=== PATIENT | male | born 1940 | race Caucasian/White ===

== ENCOUNTER → 2016-06-15 | Outpatient (CLI) | payer OTHER, BC ==
[~2016-06-15] MED LIST: B-COTAB18 PO; BYS/5 PO; CLB/200 PO; EFFSR150 PO; FEXO1TAB46 PO; IBUP-1449 PO; LEVO200T6 PO; MULT-506 PO; NXM/40 PO; OMEG10007 PO; OXYC-643 PO; PREG1CAP28 PO; VITAMIN D3 PO; ZOLP5TAB PO
== END | disposition home or self-care (01) ==
LOC: C.RDSM 10:20
PROVIDERS: ATTEND Physical Medicine & Rehabilitation
DX: M54.2 Cervicalgia (principal)

== ENCOUNTER → 2016-07-26 | Outpatient (CLI) | payer OTHER, BC ==
--- NOTE | 2016-07-26 14:02 | DIAGNOSTIC IMAGING REPORT ---
(BARIUM SWALLOW) ESOPHAGUS CLINICAL HISTORY: Pain in back of neck on swallowing. Dysphagia. COMPARISON STUDY: None. FLUOROSCOPY TIME: 1.1 minutes. FINDINGS: No esophageal mass or stricture was identified. A 13 mm barium tablet passed into the stomach. An anterior cervical spine skeletal infusion was noted. No indentation upon the esophagus was noted. No reflux was elicited. There was mild esophageal dysmotility. IMPRESSION: 1. Mild esophageal dysmotility. 2. No esophageal mass or stricture. 3. 13 mm barium tablet passed freely into the stomach. Electronically signed by: Elliot Drew M.D. 07/26/2016 2:00 PM Dictated Date/Time: 07/26/2016 1:59 PM
== END | disposition home or self-care (01) ==
LOC: C.RAD 12:13
PROVIDERS: ATTEND Physical Medicine & Rehabilitation
DX: M43.12 Spondylolisthesis, cervical region (principal); Z98.1 Arthrodesis status; R13.14 Dysphagia, pharyngoesophageal phase

== ENCOUNTER → 2016-07-27 | Outpatient (CLI) | payer OTHER, BC ==
--- NOTE | 2016-08-02 12:59 | CODING QUERY NO DIAGNOSIS ---
TREATMENT RENDERED WITHOUT A DIAGNOSIS Dr. Sheldon, To promote full compliance with coding requirements relating to patient care, physician participation is requested in all cases of maternal fetal physician uncertainty. Please assist us with providing a diagnosis/symptom for the test(s) below: A diagnosis/symptom was not documented on your Order. A valid diagnosis/symptom is required to bill all insurances. Please remember that we are unable to code a diagnosis of rule out, probable, possible, questionable, or suspected. Tests that require a diagnosis: * TISSUE PATH LEVEL IV DIAGNOSIS: DATE OF SERVICE: 07/27/16 Provider Signature: Date: Thank you Freddy Hampton [facility] Information Management Once completed, please kindly fax back to [phone] For questions please call [phone]
== END | disposition home or self-care (01) ==
LOC: C.PATHSPEC 17:15
PROVIDERS: ATTEND Podiatrist Foot & Ankle Surgery
DX: D23.72 Other benign neoplasm of skin of left lower limb, including hip (principal); B07.8 Other viral warts

== ENCOUNTER → 2016-09-01 | Outpatient (CLI) | payer OTHER, BC ==
--- NOTE | 2016-09-02 21:23 | CODING QUERY NO DIAGNOSIS ---
TREATMENT RENDERED WITHOUT A DIAGNOSIS 40 To promote full compliance with coding requirements relating to patient care, physician participation is requested in all cases of staff midwife uncertainty. Please assist us with providing a diagnosis/symptom for the test(s) below: A diagnosis/symptom was not documented on your Order. A valid diagnosis/symptom is required to bill all insurances. Please remember that we are unable to code a diagnosis of rule out, probable, possible, questionable, or suspected. DOS 09/01/16 Tests that require a diagnosis: * AEROBIC GRAM STAIN C&S LEFT FOOT DIAGNOSIS: *ON YOUR ORDER YOU HAVE DX CODE B70.8, THIS IS AN INVALID CODE, CAN YOU PLEASE ADD CORRECT CODE Provider Signature: Date: Thank you Cande Garzon [facility] Information Management Once completed, please kindly fax back to [phone] For questions please call [phone]
== END | disposition home or self-care (01) ==
LOC: C.LABSPEC 16:41
PROVIDERS: ATTEND Podiatrist Foot & Ankle Surgery
DX: L97.509 Non-pressure chronic ulcer of other part of unspecified foot with unspecified severity (principal)

== ENCOUNTER → 2017-02-09 | Outpatient (CLI) | payer OTHER, BC ==
[~2017-02-09] MED LIST changes: -VITAMIN D3 PO
[2017-02-09 08:49] LABS: HEMATOCRIT 46.7 % (42-52); MEAN CELL VOLUME 92.7 fL (80-100); MEAN CORPUSCULAR HEMOGLOBIN 32.1 pg (25-34); MEAN CORPUSCULAR HGB CONC 34.7 g/dl (32-36); MEAN PLATELET VOLUME 10.1 fL (7.4-10.4); PLATELET COUNT 213 K/uL (130-400); RED BLOOD COUNT 5.04 M/uL (4.7-6.1)
[2017-02-09 08:58] LABS: ALT/SGPT 13 U/L (12-78); BLOOD UREA NITROGEN 12 mg/dl (7-18); BUN/CREATININE RATIO 15.4 (10-20); CALCIUM 8.9 mg/dl (8.5-10.1); CARBON DIOXIDE 26 mmol/L (21-32); CHLORIDE 107 mmol/L (98-107); CREATININE 0.79 mg/dl (0.60-1.40); GLUCOSE 106 mg/dl (70-99); POTASSIUM 4.3 mmol/L (3.5-5.1); SODIUM 139 mmol/L (136-145)
[2017-02-09 09:08] LABS: ALKALINE PHOSPHATASE 76 U/L (45-117); AST/SGOT 22 U/L (15-37)
== END | disposition home or self-care (01) ==
LOC: C.LABFOXMH 08:16
PROVIDERS: ATTEND Internal Medicine
DX: R53.83 Other fatigue (principal)

== ENCOUNTER → 2017-04-02 | Outpatient (CLI) | payer OTHER, BC ==
[2017-04-02 09:40] LABS: BLOOD UREA NITROGEN 16 mg/dl (7-18); BUN/CREATININE RATIO 17.9 (10-20); CALCIUM 8.8 mg/dl (8.5-10.1); CARBON DIOXIDE 28 mmol/L (21-32); CHLORIDE 107 mmol/L (98-107); CREATININE 0.89 mg/dl (0.60-1.40); GLUCOSE 107 mg/dl (70-99); POTASSIUM 4.4 mmol/L (3.5-5.1); SODIUM 140 mmol/L (136-145)
== END ==
LOC: C.LABFOXMH 09:00
PROVIDERS: ATTEND Internal Medicine
DX: R53.83 Other fatigue (principal)

== ENCOUNTER → 2017-05-31 | Outpatient (CLI) | payer OTHER, BC ==
[~2017-05-31] MED LIST changes: +GADAVIST IV PRN
--- NOTE | 2017-05-31 13:12 | DIAGNOSTIC IMAGING REPORT ---
L LOWER EXT NONJOINT COMBO CLINICAL HISTORY: 76 years-old Male presenting with EVAL INTERSPACE FOR POSSIBLE NEUROMA MTPJ L2,3,4, pain at the bases of the toes. TECHNIQUE: Multisequence, multiplanar MR imaging of the forefoot was performed before and after the administration of intravenous contrast. IV contrast: 8 mL of Gadavist. COMPARISON: None. FINDINGS: Localizer images: Unremarkable. A marker is in place over the dorsal aspect of the second through fourth metatarsophalangeal joints. No subjacent abnormality. No soft tissue mass. No subcutaneous or intramuscular edema. No bony edema. Trace fluid noted in the second through fourth metatarsophalangeal joints. Mild degenerative changes at the first metatarsophalangeal joint. IMPRESSION: No evidence of a mass. Reactive fluid in the second through the fourth metatarsophalangeal joints. This is most likely degenerative in etiology. No abnormal enhancement. Electronically signed by: Dru Orozco M.D. 05/31/2017 1:10 PM Dictated Date/Time: 05/31/2017 12:09 PM
== END | disposition home or self-care (01) ==
LOC: C.MRI 09:31
PROVIDERS: ATTEND Podiatrist Foot & Ankle Surgery
DX: Q66.52 Congenital pes planus, left foot (principal); Q66.51 Congenital pes planus, right foot

== ENCOUNTER 2022-08-28 13:17 | Observation (INO) ==
--- NOTE | 2022-08-28 14:41 | XRay Report ---
XR chest 1V not portable HISTORY: 82 years-old Male Chest pain, nonspecific acute hypoxia with weakness COMPARISON: 07/28/2019 TECHNIQUE: PA view of the chest FINDINGS: Cardiac mediastinal and hilar silhouettes are unchanged. Chronic appearing left-sided rib fractures. Spondylitic spurring of the spine. Cervical spinal fusion hardware. No pneumothorax, pleural effusion , airspace consolidation or pulmonary edema. IMPRESSION: No acute process of the chest. ACT 112: Negative or not required by law. The above report was generated using voice recognition software. It may contain grammatical, syntax o r spelling errors. Electronically signed by: León Osorio M.D. 08/28/2022 2:40 PM
[2022-08-28] MEDS ORDERED: SODIUM CHLORIDE 0.9% 1000ML 1,000 ML IV ONE (15:36)
--- NOTE | 2022-08-28 15:43 | Emergency Department Note ---
Impression & Plan Hypoxic, Weakness, COVID ED Provider Note NAME: ADEN HILL JR AGE: 82 SEX: M : 1940 ARRIVES VIA: Ambulance INFORMANT: Patient ED PROVIDER(S): Lefty Oliva DO CHIEF COMPLAINT: Weakness HPI: Patient is an 82-year-old male who presents from [facility] notes that he has been weak over the past 24 hours. He notes he does have a mild cough. No headache or change in vision. No chest pain or shortness of breath. No belly pain, nausea, vomiting or diarrhea. No dysuria, urgency or frequency. He notes that this morning when he tried to get up from a chair he felt dizzy. This lasted for about 30 minutes and then resolved. He has not had anything since then. He denies all other complaints at this time. Again no focal weakness or numbness. PAST MEDICAL HISTORY:See Below PAST SURGICAL HISTORY:See Below FAMILY HISTORY:See Below SOCIAL HISTORY:See Below HOME MEDICATIONS:See Below ALLERGIES:See Below VITALS:See Below PHYSICAL EXAMINATION: GENERAL: Sitting up in bed, alert, well appearing, well nourished, no distress, non-toxic EYE EXAM: normal conjunctiva. PERRL and EOM'sintact. OROPHARYNX: no exudate, no erythema, lips, buccal mucosa, and tongue normal and mucous membranes are moist NECK: supple, no nuchal rigidity, no adenopathy, non-tender LUNGS: Clear to auscultation. Normal chest wall mechanics HEART: no murmurs, S1 normal and S2 normal ABDOMEN: abdomen soft, non-tender, normo-active bowel sounds, no masses, no rebound or guarding. UPPER EXTREMITIES: upper extremities are grossly normal. LOWER EXTREMITIES: No pitting edema. NEURO EXAM: Normal sensorium, cranial nerves II-XII intact, normal speech, no weakness of arms, no weakness of legs. No drift. Finger to nose intact. Gross sensation intact. MEDICAL DECISION MAKING: Patient is a 82-year-old male who presents ER for above-stated complaint. IV was established blood work was obtained. Labs show no significant leukocytosis or anemia. INR was unremarkable. BMP along LFTs bilirubin and TSH was unremarkable. Troponin was negative. UA was clean. Patient was positive for COVID. He was in A-fib upon presentation and was given a small dose of Lopressor. Upon review of his history there was mention of this in previous notes but patient noted that he was unaware at that time. Currently he does remember having a history of A-fib at some point. CT of the head was negative. Chest x-ray was unremarkable. Patient was slightly hypoxic at 80%. Was placed on 2 L nasal cannula. He was given Decadron. He was updated bedside discussed with the hospitalist for further evaluation management and treatment. Discussed with Dr. Jay for further evaluation management Triage Nursing notes reviewed. Limited review of prior medical records performed Vital Signs: reviewed and remarkable for no significant abnormalities Differential diagnosis: Differential diagnosis includes etiologies such as benign positional vertigo, dehydration, hypovolemia, anemia, tumor, infection, hypoglycemia, electrolyte abnormalities, cardiac sources, intracerebral event, toxicologic, neurological, as well as others were entertained. ER treatment provided: See below Diagnostics interpreted by me include EKG and cardiac monitoring as listed below: -Cardiac Monitoring: An order was placed for continuous cardiac monitoring. The monitor shows a rate of 80 with sinus rhythm. -ECG: A-fib rate of 94 Normal axis No PVCs QTc 455 -Laboratory studies:Interpreted by me as stated above in MDM and shown below. Imaging studies: Xrays: As interpreted by me: Portable AP upright 1 view of the chest shows no focal infiltrate CTs show: CT head was negative Consultation(s): As described in MDM Procedures:none Critical Care: I have personally spent 32 minutes of critical care time in the direct management of this patient. This includes bedside care, interpretation of diagnostic studies, and testing, discussion with consultants, patient, and family members, and other required patient management activities. This 32 minutes is in excess of all separately billable procedures. Past Med/Surg History Medical History (Updated 08/28/22 @ 20:41 by Lefty Oliva DO) Depression GERD (gastroesophageal reflux disease) CONTROLLED Hearing deficit HEARING AIDS History of alcoholism History of cervical fracture C5-C6 CERVICAL FRACTURE 2014 TREATED CONSERVATIVELY Hx of urinary frequency Hypertension Hypothyroidism Hypothyroidism Mixed conductive and sensorineural hearing loss of right ear with restricted hearing of left ear Prostate cancer PROSTATE S/P PROSTATECTOMY; NO CHEMO OR RADIATION Surgical History History of colonoscopy History of esophagogastroduodenoscopy (EGD) 01/14/16= MAC SEDATION AT [facility] History of hernia repair History of spinal fusion cervical Hx of arthroscopic knee surgery ? left Hx of prostatectomy Hx of shoulder surgery right Social History Smoking Status: Never smoker Tobacco Type: Pipe and Cigars Cigarettes Per Day: 3; Do You Dip or Chew Tobacco: No; Hx Alcohol Use: No (HX ETOH ABUSE; NO ETOH X 10+ YEARS) Hx Substance Use: No Preferred Language: Rwandan Communication Ability: Effective Beliefs That Will Affect Care: None marital status: Single Current Living Situation: Personal Care Facility current occupational status: retired Feels Safe at Home: Yes Assistive Devices: Glasses, Hearing Aid - Left and Hearing Aid - Right Allergies Allergies Allergy/AdvReac Type Severity Reaction Status Date / Time Penicillins Allergy Severe SEVERE Verified 08/28/22 17:45 SWELLING AND HIVES Sulfa (Sulfonamide Allergy Severe SEVERE Verified 08/28/22 17:45 Antibiotics) SWELLING AND HIVES Home Meds Home Medications Medication Instructions Recorded Confirmed cholecalciferol (vitamin D3) 50 2,000 unit PO DAILY 04/12/18 08/28/22 mcg (2,000 unit) tablet (Vitamin D3) esomeprazole magnesium 40 mg 40 mg PO Q2D 04/12/18 08/28/22 capsule,delayed release (Nexium) fexofenadine 180 mg tablet 180 mg PO DAILY PRN allergies 04/12/18 08/28/22 levothyroxine 200 mcg tablet 200 mcg PO DAILY 04/12/18 08/28/22 (Synthroid) triamcinolone acetonide 0.1 % 1 applic topical DAILY PRN 04/12/18 08/28/22 topical cream affected areas vitamin B complex 1 tab PO DAILY 04/12/18 08/28/22 metoprolol succinate 25 mg 25 mg PO DAILY 01/17/21 08/28/22 tablet,extended release 24 hr (Toprol XL) atorvastatin 40 mg tablet 40 mg PO QAM 08/28/22 08/28/22 clobetasol 0.05 % topical cream 1 applic topical BID PRN ITCHINESS 08/28/22 08/28/22 cyanocobalamin (vitamin B-12) 1,000 mcg PO DAILY 08/28/22 08/28/22 1,000 mcg tablet (Vitamin B-12) doxepin 10 mg capsule 10 mg PO HS 08/28/22 08/28/22 duloxetine 60 mg capsule,delayed 60 mg PO QPM 08/28/22 08/28/22 release (Cymbalta) gabapentin 600 mg tablet 600 mg PO HS 08/28/22 08/28/22 oxycodone-acetaminophen 10 mg-325 1 tab PO TID PRN Pain 08/28/22 08/28/22 mg tablet vilazodone 20 mg tablet 20 mg PO DAILY 08/28/22 08/28/22 zolpidem 5 mg tablet (Ambien) 5 - 10 mg PO HS PRN Insomnia 08/28/22 08/28/22 Results & Data (ED) Vital Signs Vital Signs - 24 hr 08/28/22 13:07 08/28/22 15:45 08/28/22 15:45 Temperature 36.6 C Temperature Source Temporal Artery Scan Pulse Rate 78 Pulse Rate [Apical] Pulse Rate from SpO2 Sensor Respiratory Rate 18 Blood Pressure 116/76 Blood Pressure [Left Arm] Blood Pressure Mean 89 Blood Pressure Mean [Left Arm] Pulse Oximetry 92 97 Oxygen Delivery Method Room Air Oxygen Flow Rate Sepsis Recent Fever Within 48 Hours Yes Sepsis New/Unexplained Change in Mental Status No Sepsis Action Taken by Nursing No Action Required 08/28/22 15:30 08/28/22 15:30 08/28/22 16:00 Temperature Temperature Source Pulse Rate 92 H 104 H Pulse Rate [Apical] Pulse Rate from SpO2 Sensor 108 H Respiratory Rate 29 H 24 Blood Pressure 132/94 Blood Pressure [Left Arm] Blood Pressure Mean 106 Blood Pressure Mean [Left Arm] Pulse Oximetry 92 92 Oxygen Delivery Method Oxygen Flow Rate Sepsis Recent Fever Within 48 Hours Sepsis New/Unexplained Change in Mental Status Sepsis Action Taken by Nursing 08/28/22 16:32 08/28/22 16:35 08/28/22 16:35 Temperature Temperature Source Pulse Rate 108 H 103 H Pulse Rate [Apical] Pulse Rate from SpO2 Sensor 95 H Respiratory Rate 29 H 25 H Blood Pressure 181/111 H Blood Pressure [Left Arm] Blood Pressure Mean 134 Blood Pressure Mean [Left Arm] Pulse Oximetry 93 Oxygen Delivery Method Oxygen Flow Rate Sepsis Recent Fever Within 48 Hours Sepsis New/Unexplained Change in Mental Status Sepsis Action Taken by Nursing 08/28/22 17:14 08/28/22 17:30 08/28/22 18:00 Temperature Temperature Source Pulse Rate 109 H Pulse Rate [Apical] 98 H Pulse Rate from SpO2 Sensor 101 H 116 H Respiratory Rate 21 18 Blood Pressure Blood Pressure [Left Arm] 158/102 H Blood Pressure Mean Blood Pressure Mean [Left Arm] 120 Pulse Oximetry 92 89 L 92 Oxygen Delivery Method Room Air Oxygen Flow Rate Sepsis Recent Fever Within 48 Hours Sepsis New/Unexplained Change in Mental Status Sepsis Action Taken by Nursing 08/28/22 19:18 08/28/22 19:33 Temperature Temperature Source Pulse Rate 88 Pulse Rate [Apical] 83 Pulse Rate from SpO2 Sensor Respiratory Rate 24 Blood Pressure Blood Pressure [Left Arm] 161/94 H Blood Pressure Mean Blood Pressure Mean [Left Arm] 116 Pulse Oximetry 96 Oxygen Delivery Method Nasal Cannula Oxygen Flow Rate 2 Sepsis Recent Fever Within 48 Hours Sepsis New/Unexplained Change in Mental Status Sepsis Action Taken by Nursing Laboratory Data 08/28/22 15:41 08/28/22 15:41 Lab Results 08/28/22 08/28/22 08/28/22 Range/Units 15:41 15:41 15:41 WBC 5.70 (4.8-10.8) K/ul RBC 4.92 (4.70-6.10) M/uL Hgb 15.5 (14.0-18.0) g/dl Hct 46.3 (42.0-52.0) % MCV 94.1 (80.0-100.0) fL MCH 31.5 (25.0-34.0) pg MCHC 33.5 (32.0-36.0) g/dL RDW Std Deviation 42.9 (36.4-46.3) fL RDW Coeff of Edward 12.3 (11.5-14.5) % Plt Count 185 (130-400) K/uL MPV 9.7 (9.4-12.4) fL Immature Gran % (Auto) 0.2 % Neut % (Auto) 60.1 % Lymph % (Auto) 14.4 % [place] % (Auto) 24.4 % Eos % (Auto) 0.4 % Baso % (Auto) 0.5 % Neut # (Auto) 3.43 (1.40-6.50) K/uL Lymph # (Auto) 0.82 L (1.2-3.4) K/uL [place] # (Auto) 1.39 H (0.11-0.59) K/uL Eos # (Auto) 0.02 (0-0.50) K/uL Baso # (Auto) 0.03 (0-0.2) K/uL Immature Gran # (Auto) 0.01 (0.01-0.20) K/uL PT 12.3 H (9.0-12.0) Seconds INR 1.1 (0.9-1.1) APTT 30.1 (21.0-31.0) Seconds PTT Ratio 1.1 Sodium 137 (136-145) mmol/L Potassium 4.0 (3.5-5.1) mmol/L Chloride 103 (98-107) mmol/L Carbon Dioxide 29 (21-32) mmol/L Anion Gap 5 (3-11) BUN 17 (6-23) mg/dl Creatinine 0.90 (0.6-1.4) mg/dl Est Cr Clr Drug Dosing 67.4 ml/min Est GFR ( Amer) 91.9 ml/min Est GFR (Non-Af Amer) 79.3 ml/min BUN/Creatinine Ratio 18.9 (10-20) Glucose 108 H (70-99(Fasting)) mg/dl Calcium 9.0 (8.6-10.3) mg/dl Magnesium 2.2 (1.7-2.4) mg/dl Total Bilirubin 0.5 (0.2-1.0) mg/dl AST 19 (13-39) U/L ALT 8 (7-52) U/L Alkaline Phosphatase 81 (34-104) U/L Troponin I High Sens 7.2 (0-20) pg/ml Total Protein 7.3 (6.0-8.3) gm/dl Albumin 4.2 (3.4-5.0) gm/dl Globulin 3.1 (2.5-4.0) gm/dl Albumin/Globulin Ratio 1.4 (0.9-2) Procalcitonin (0-0.5) ng/ml TSH (0.300-4.500) uIu/ml Urine Color Urine Appearance (Clear) Urine pH (4.5-7.5) Ur Specific [place] (1.000-1.030) Urine Protein (Negative) Urine Glucose (UA) (Negative) Urine Ketones (Negative) Urine Blood (Negative) Urine Nitrite (Negative) Urine Bilirubin (Negative) Urine Urobilinogen (Negative) Ur Leukocyte Esterase (Negative) Adenovirus (PCR) (NotDetected) B. pertussis DNA (PCR) (NotDetected) B.parapertussis DNA PCR (NotDetected) C. pneumoniae DNA (PCR) (NotDetected) Coronavirus OC43 (PCR) (NotDetected) Coronavirus HKU1 (PCR) (NotDetected) Coronavirus 229E (PCR) (NotDetected) SARS-CoV-2 (PCR) (Negative) Coronavirus NL63 (PCR) (NotDetected) Human Metapneumovir PCR (NotDetected) Influenza Type A (PCR) (Neg) Influenza Type B (PCR) (Neg) M. pneumoniae (PCR) (NotDetected) Parainfluenza 1 (PCR) (NotDetected) Parainfluenza 2 (PCR) (NotDetected) Parainfluenza 3 (PCR) (NotDetected) Parainfluenza 4 (PCR) (NotDetected) RSV (RT-PCR) (Neg) RSV (PCR) (NotDetected) Entero/Rhino (PCR) (NotDetected) 08/28/22 08/28/22 08/28/22 Range/Units 15:41 15:41 15:41 WBC (4.8-10.8) K/ul RBC (4.70-6.10) M/uL Hgb (14.0-18.0) g/dl Hct (42.0-52.0) % MCV (80.0-100.0) fL MCH (25.0-34.0) pg MCHC (32.0-36.0) g/dL RDW Std Deviation (36.4-46.3) fL RDW Coeff of Edward (11.5-14.5) % Plt Count (130-400) K/uL MPV (9.4-12.4) fL Immature Gran % (Auto) % Neut % (Auto) % Lymph % (Auto) % [place] % (Auto) % Eos % (Auto) % Baso % (Auto) % Neut # (Auto) (1.40-6.50) K/uL Lymph # (Auto) (1.2-3.4) K/uL [place] # (Auto) (0.11-0.59) K/uL Eos # (Auto) (0-0.50) K/uL Baso # (Auto) (0-0.2) K/uL Immature Gran # (Auto) (0.01-0.20) K/uL PT (9.0-12.0) Seconds INR (0.9-1.1) APTT (21.0-31.0) Seconds PTT Ratio Sodium (136-145) mmol/L Potassium (3.5-5.1) mmol/L Chloride (98-107) mmol/L Carbon Dioxide (21-32) mmol/L Anion Gap (3-11) BUN (6-23) mg/dl Creatinine (0.6-1.4) mg/dl Est Cr Clr Drug Dosing ml/min Est GFR ( Amer) ml/min Est GFR (Non-Af Amer) ml/min BUN/Creatinine Ratio (10-20) Glucose (70-99(Fasting)) mg/dl Calcium (8.6-10.3) mg/dl Magnesium (1.7-2.4) mg/dl Total Bilirubin (0.2-1.0) mg/dl AST (13-39) U/L ALT (7-52) U/L Alkaline Phosphatase (34-104) U/L Troponin I High Sens (0-20) pg/ml Total Protein (6.0-8.3) gm/dl Albumin (3.4-5.0) gm/dl Globulin (2.5-4.0) gm/dl Albumin/Globulin Ratio (0.9-2) Procalcitonin < 0.05 (0-0.5) ng/ml TSH 0.271 L (0.300-4.500) uIu/ml Urine Color Urine Appearance (Clear) Urine pH (4.5-7.5) Ur Specific [place] (1.000-1.030) Urine Protein (Negative) Urine Glucose (UA) (Negative) Urine Ketones (Negative) Urine Blood (Negative) Urine Nitrite (Negative) Urine Bilirubin (Negative) Urine Urobilinogen (Negative) Ur Leukocyte Esterase (Negative) Adenovirus (PCR) (NotDetected) B. pertussis DNA (PCR) (NotDetected) B.parapertussis DNA PCR (NotDetected) C. pneumoniae DNA (PCR) (NotDetected) Coronavirus OC43 (PCR) (NotDetected) Coronavirus HKU1 (PCR) (NotDetected) Coronavirus 229E (PCR) (NotDetected) SARS-CoV-2 (PCR) POSITIVE A* (Negative) Coronavirus NL63 (PCR) (NotDetected) Human Metapneumovir PCR (NotDetected) Influenza Type A (PCR) Negative (Neg) Influenza Type B (PCR) Negative (Neg) M. pneumoniae (PCR) (NotDetected) Parainfluenza 1 (PCR) (NotDetected) Parainfluenza 2 (PCR) (NotDetected) Parainfluenza 3 (PCR) (NotDetected) Parainfluenza 4 (PCR) (NotDetected) RSV (RT-PCR) Negative (Neg) RSV (PCR) (NotDetected) Entero/Rhino (PCR) (NotDetected) 08/28/22 08/28/22 Range/Units 15:50 16:30 WBC (4.8-10.8) K/ul RBC (4.70-6.10) M/uL Hgb (14.0-18.0) g/dl Hct (42.0-52.0) % MCV (80.0-100.0) fL MCH (25.0-34.0) pg MCHC (32.0-36.0) g/dL RDW Std Deviation (36.4-46.3) fL RDW Coeff of Edward (11.5-14.5) % Plt Count (130-400) K/uL MPV (9.4-12.4) fL Immature Gran % (Auto) % Neut % (Auto) % Lymph % (Auto) % [place] % (Auto) % Eos % (Auto) % Baso % (Auto) % Neut # (Auto) (1.40-6.50) K/uL Lymph # (Auto) (1.2-3.4) K/uL [place] # (Auto) (0.11-0.59) K/uL Eos # (Auto) (0-0.50) K/uL Baso # (Auto) (0-0.2) K/uL Immature Gran # (Auto) (0.01-0.20) K/uL PT (9.0-12.0) Seconds INR (0.9-1.1) APTT (21.0-31.0) Seconds PTT Ratio Sodium (136-145) mmol/L Potassium (3.5-5.1) mmol/L Chloride (98-107) mmol/L Carbon Dioxide (21-32) mmol/L Anion Gap (3-11) BUN (6-23) mg/dl Creatinine (0.6-1.4) mg/dl Est Cr Clr Drug Dosing ml/min Est GFR ( Amer) ml/min Est GFR (Non-Af Amer) ml/min BUN/Creatinine Ratio (10-20) Glucose (70-99(Fasting)) mg/dl Calcium (8.6-10.3) mg/dl Magnesium (1.7-2.4) mg/dl Total Bilirubin (0.2-1.0) mg/dl AST (13-39) U/L ALT (7-52) U/L Alkaline Phosphatase (34-104) U/L Troponin I High Sens (0-20) pg/ml Total Protein (6.0-8.3) gm/dl Albumin (3.4-5.0) gm/dl Globulin (2.5-4.0) gm/dl Albumin/Globulin Ratio (0.9-2) Procalcitonin (0-0.5) ng/ml TSH (0.300-4.500) uIu/ml Urine Color Yellow Urine Appearance Clear (Clear) Urine pH 5.5 (4.5-7.5) Ur Specific [place] 1.015 (1.000-1.030) Urine Protein Negative (Negative) Urine Glucose (UA) Negative (Negative) Urine Ketones Negative (Negative) Urine Blood Negative (Negative) Urine Nitrite Negative (Negative) Urine Bilirubin Negative (Negative) Urine Urobilinogen Negative (Negative) Ur Leukocyte Esterase Negative (Negative) Adenovirus (PCR) Not Detected (NotDetected) B. pertussis DNA (PCR) Not Detected (NotDetected) B.parapertussis DNA PCR Not Detected (NotDetected) C. pneumoniae DNA (PCR) Not Detected (NotDetected) Coronavirus OC43 (PCR) Not Detected (NotDetected) Coronavirus HKU1 (PCR) Not Detected (NotDetected) Coronavirus 229E (PCR) Not Detected (NotDetected) SARS-CoV-2 (PCR) DETECTED A* (Negative) Coronavirus NL63 (PCR) Not Detected (NotDetected) Human Metapneumovir PCR Not Detected (NotDetected) Influenza Type A (PCR) Not Detected (Neg) Influenza Type B (PCR) Not Detected (Neg) M. pneumoniae (PCR) Not Detected (NotDetected) Parainfluenza 1 (PCR) Not Detected (NotDetected) Parainfluenza 2 (PCR) Not Detected (NotDetected) Parainfluenza 3 (PCR) Not Detected (NotDetected) Parainfluenza 4 (PCR) Not Detected (NotDetected) RSV (RT-PCR) (Neg) RSV (PCR) Not Detected (NotDetected) Entero/Rhino (PCR) Not Detected (NotDetected) Administered Medications Discontinued Medications Albuterol (Albuterol 0.083% Nebu Soln 3 Ml Vial) 2.5 mg NEB NOW STA; Protocol Stop: 08/28/22 19:25 Last Admin: 08/28/22 19:59 Dose: 2.5 mg Documented By: MCKINLEY Sodium Chloride (Nss 1000ml) 1,000 mls @ 999 mls/hr IV .[id number] ONE Stop: 08/28/22 16:36 Last Infusion: 08/28/22 17:40 Dose: 0 mls/hr Documented By: Admin: 08/28/22 16:00 Dose: 999 mls/hr Documented By: TOM Dexamethasone 6 mg/ Syringe 1.5 mls @ 1 mls/min IV ONE ONE Stop: 08/28/22 18:47 Last Admin: 08/28/22 19:54 Dose: 1 mls/min Documented By: MCKINLEY Acetaminophen (Ofirmev) 1,000 mg in 100 mls @ 400 mls/hr IV NOW STA Stop: 08/28/22 19:09 Last Infusion: 08/28/22 20:30 Dose: 0 mls/hr Documented By: Admin: 08/28/22 20:05 Dose: 400 mls/hr Documented By: MCKINLEY Ibuprofen (Ibuprofen 600 Mg Tab) 600 mg PO NOW STA Stop: 08/28/22 19:25 Last Admin: 08/28/22 20:02 Dose: 600 mg Documented By: LEONELAF Metoprolol Tartrate (Metoprolol Tartrate 1 Mg/Ml Vial) 2.5 mg IV NOW STA Stop: 08/28/22 17:19 Last Admin: 08/28/22 17:41 Dose: 2.5 mg Documented By: QGV Imaging Data Radiologist's Impression: Chest X-Ray 08/28/22 13:56 XR chest 1V not portable HISTORY: 82 years-old Male Chest pain, nonspecific acute hypoxia with weakness COMPARISON: 07/28/2019 TECHNIQUE: PA view of the chest FINDINGS: Cardiac mediastinal and hilar silhouettes are unchanged. Chronic appearing left- sided rib fractures. Spondylitic spurring of the spine. Cervical spinal fusion hardware. No pneumothorax, pleural effusion, airspace consolidation or pulmonary edema. IMPRESSION: No acute process of the chest. ACT 112: Negative or not required by law. The above report was generated using voice recognition software. It may contain grammatical, syntax or spelling errors. Electronically signed by: León Osorio M.D. 08/28/2022 2:[address] 08/28/22 15:36 CT head/brain wo con CLINICAL HISTORY: 82 years-old Male with dizzy. Acute dizziness TECHNIQUE: Multiple axial CT images of the head were obtained without contrast. A dose lowering technique was utilized adhering to the principles of ALARA. CT DOSE: 625.80 mGy.cm COMPARISON: 07/24/2013 FINDINGS: No acute intracranial hemorrhage, midline shift, intracranial mass, hydrocephalus, territorial ischemia or abnormal extra-axial collection. Involutional changes with chronic microvascular ischemic disease. Chronic lacunar infarct of the right frontal lobe choudhary radiata and lentiform nucleus. Cerebral vascular calcifications. Chronic-appearing cerebellar infarcts. The calvarium is intact. The paranasal sinuses, mastoid air cells, and middle ear cavities are clear. IMPRESSION: No acute intracranial abnormality identified. ACT 112: Negative or not required by law. The above report was generated using voice recognition software. It may contain grammatical, syntax or spelling errors. Electronically signed by: León Osorio M.D. 08/28/2022 4:01 PM Discharge Plan Visit Data Chief Complaint: Weakness Stated Complaint: WEAKNESS, COVID + ED Provider: Lefty Oliva Discharge Problem: Hypoxic, Weakness, COVID Forms Stand Alone Forms: My [facility] Prescriptions Prescriptions: No Action metoprolol succinate [Toprol XL] 25 mg tablet extended release 24 hr 25 mg PO DAILY fexofenadine 180 mg Tablet 180 mg PO DAILY PRN (Reason: allergies) triamcinolone acetonide 0.1 % Cream 1 applic TOPICAL DAILY PRN (Reason: affected areas) esomeprazole magnesium [Nexium] 40 mg Capsule,Delayed Release(Dr/Ec) 40 mg PO Q2D vitamin B complex Tablet 1 tab PO DAILY levothyroxine [Synthroid] 200 mcg Tablet 200 mcg PO DAILY cholecalciferol (vitamin D3) [Vitamin D3] 2,000 unit Tablet 2,000 unit PO DAILY atorvastatin 40 mg tablet 40 mg PO QAM gabapentin 600 mg tablet 600 mg PO HS clobetasol 0.05 % Cream 1 applic TOPICAL BID PRN (Reason: ITCHINESS) cyanocobalamin (vitamin B-12) [Vitamin B-12] 1,000 mcg Tablet 1,000 mcg PO DAILY doxepin 10 mg Capsule 10 mg PO HS oxycodone-acetaminophen 10-325 mg tablet 1 tab PO TID PRN (Reason: Pain) zolpidem [Ambien] 5 mg Tablet 5 - 10 mg PO HS PRN (Reason: Insomnia) duloxetine [Cymbalta] 60 mg Capsule,Delayed Release(Dr/Ec) 60 mg PO QPM Rx Instructions: Q AFTERNOON vilazodone 20 mg Tablet 20 mg PO DAILY Rx Instructions: must administer with a meal/food Referrals Referrals: Magaly Nicole [Primary Care Provider] -
--- NOTE | 2022-08-28 16:03 | CT Scan Report ---
CT head/brain wo con CLINICAL HISTORY: 82 years-old Male with dizzy. Acute dizziness TECHNIQUE: Multiple axial CT images of the head were obtained without contrast. A dose lowering tech nique was utilized adhering to the principles of ALARA. CT DOSE: 625.80 mGy.cm COMPARISON: 07/24/2013 FINDINGS: No acute intracranial hemorrhage, midline shift, intracranial mass, hydrocephalus, territorial ischem ia or abnormal extra-axial collection. Involutional changes with chronic microvascular ischemic disea se. Chronic lacunar infarct of the right frontal lobe choudhary radiata and lentiform nucleus. Cerebral vascular calcifications. Chronic-appearing cerebellar infarcts. The calvarium is intact. The paranasal sinuses, mastoid air cells, and middle ear cavities are clear . IMPRESSION: No acute intracranial abnormality identified. ACT 112: Negative or not required by law. The above report was generated using voice recognition software. It may contain grammatical, syntax o r spelling errors. Electronically signed by: León Osorio M.D. 08/28/2022 4:01 PM
[2022-08-28 16:21] LABS: Basophils # (auto) 0.03 K/uL (0-0.2); Basophils % (auto) 0.5 %; Eosinophils # (auto) 0.02 K/uL (0-0.50); Eosinophils % (auto) 0.4 %; Hematocrit (blood only) 46.3 % (42.0-52.0); Hemoglobin 15.5 g/dl (14.0-18.0); Immature Granulocytes # (auto) 0.01 K/uL (0.01-0.20); Immature Granulocytes % (auto) 0.2 %; Lymphocytes # (auto) 0.82 K/uL (1.2-3.4); Lymphocytes % (auto) 14.4 %; Mean Corpuscular Hemoglobin 31.5 pg (25.0-34.0); Mean Corpuscular Hgb Conc 33.5 g/dL (32.0-36.0); Mean Corpuscular Volume 94.1 fL (80.0-100.0); Mean Platelet Volume 9.7 fL (9.4-12.4); Monocytes # (auto) 1.39 K/uL (0.11-0.59); Monocytes % (auto) 24.4 %; Neutrophils # (auto) 3.43 K/uL (1.40-6.50); Neutrophils % (auto) 60.1 %; Platelet Count 185 K/uL (130-400); RDW Coefficient of Variation 12.3 % (11.5-14.5); RDW Standard Deviation 42.9 fL (36.4-46.3); Red Blood Count 4.92 M/uL (4.70-6.10)
[2022-08-28 16:32] LABS: Albumin Globulin Ratio 1.4 (0.9-2); Albumin Level 4.2 gm/dl (3.4-5.0); BUN Creatinine Ratio 18.9 (10-20); Bilirubin,Total 0.5 mg/dl (0.2-1.0); Creatinine Clr Calc Pharmacy 67.4 ml/min; Est GFR (African American) 91.9 ml/min; Est GFR (Non-African American) 79.3 ml/min; Globulin 3.1 gm/dl (2.5-4.0); Total Protein 7.3 gm/dl (6.0-8.3)
[2022-08-28 16:38] LABS: Troponin I High Sensitivity 7.2 pg/ml (0-20)
[2022-08-28 16:41] LABS: Influenza A virus by PCR Negative (Neg); Influenza B virus by PCR Negative (Neg); RSV by PCR Negative (Neg)
[2022-08-28 16:47] LABS: Appearance Urine Clear (Clear); Bilirubin Urine Negative (Negative); Blood Urine Negative (Negative); Color Urine Yellow; Glucose Urine UA Negative (Negative); Ketones Urine Negative (Negative); Leukocyte Esterase Urine Negative (Negative); Nitrite Urine Negative (Negative); Protein Urine Negative (Negative); Specific Gravity Urine 1.015 (1.000-1.030); Urobilinogen Urine Negative (Negative); pH Urine 5.5 (4.5-7.5)
[2022-08-28 16:48] LABS: SARS CoV2 RNA(COVID-19) Ceph POSITIVE (Negative)
[2022-08-28 16:53] LABS: INR 1.1 (0.9-1.1); Partial Thromboplastin Ratio 1.1; Partial Thromboplastin Time 30.1 Seconds (21.0-31.0); Prothrombin Time 12.3 Seconds (9.0-12.0)
--- NOTE | 2022-08-28 17:14 | Electrocardiogram Report ---
Test Reason : Blood Pressure : / mmHG Vent. Rate : 094 BPM Atrial Rate : 000 BPM P-R Int : 000 ms QRS Dur : 090 ms QT Int : 364 ms P-R-T Axes : 000 023 056 degrees QTc Int : 455 ms Atrial fibrillation Abnormal ECG When compared with ECG of 28-JUL-2019 19:05, Atrial fibrillation has replaced Sinus rhythm Confirmed by Sathya Che ([id number]) on 08/28/2022 5:13:58 PM Referred By: REFERRED SELF Confirmed By:Jaya Che
[2022-08-28] MEDS ORDERED: METOPROLOL TARTRATE 1 MG/ML VIAL IV STA (17:18)
[2022-08-28] MEDS ORDERED: dexAMETHasone 6 MG in SYRINGE 0 ML IV ONE (18:46)
[2022-08-28] MEDS ORDERED: ACETAMINOPHEN 1,000 MG/100 ML VIAL IV STA (18:55)
--- NOTE | 2022-08-28 18:58 | History & Physical Report ---
Date of Service August 28, 2022 Assessment & Plan (1) COVID: Plan: Patient presents with generalized malaise and fatigue and found to be COVID positive- onset of symptoms <24 hours, however reports first positive test ~ 1week ago - complicated by decrease oral and PO intake - Noted wheezing will test for other respirtory viral agents as well as send PCT - CXR with no acute process or consolidation - Not candidate for any further COVID therapy at this time - Hold on decadron as not on any oxygen at this time- MARILYN nebulizers for wheezing - IVF for gentle hydration x 1 liter - Rigors and fevers- Tylenol and Motrin PRN- first doses now - Lovenox for VTE prophylaxis (2) Malaise and fatigue: Plan: Acute onset with no focal deficits - as above- supportive care - PT/OT evaluation (3) Atrial dysrhythmia: Plan: History of PAF- ECG irregularly irregular in [facility]- but difficult to ascertain secondary to his rigors- back to NSR in the 80s following antipyretics prior to rooming. - Continue with Metoprolol- will add PRN IV dosing if HR uncontrolled - Rate currently controlled- likely to improve rate control with controlling rigors - Keep MAG ~2.0 and K 4.0 - Check TSH - Follow rhythms overnight- [id number] - 3 consider anticoagulation vs. remaining on aspirin if remains in afib and following shared decision making - HASbled- 3 - 5.8 % risk considered high risk- as above continue asa. (4) Hypertension: Plan: Continue Metoprolol No acute needs at this time (5) Hypothyroidism: Plan: TSH as above- patient unsure of dose - interventions pending levels History of Present Illness Chief Complaint: Generalized weakness, fatigue, loss of appetitie for 24 hours Primary Care Provider: [facility] 82 YOM with medical history of: Hearing loss, hernia repair, cervical neck injury with plating C4-C6, PAF, HTN, HLD, Hypothyroidism, chronic pain. 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 This was onset of <24 hours that waxes and wanes, however he has not tried any relieving medications at home. He reports decrease in oral food and liquids over the past 24-36 hours. Also notices increased shortness of breath with wheezing today. Patient denies any vision changes, sinus congestion, cough, sore throat. Patient was noted to be COVID positive today. Further questioning notes that he reports testing positive at [facility] last week on home test and then negative later in the week and then positive again today. He has not been on any other medications. His ECG done in the [facility] appears regularly irregular with P waves majority of the ti me, he reports that years ago he was noted to be " in a fbirilation" and was started on an aspirin and metoprolol at that time. He does not recall any other time noting dysrhythmia. Patient will be admitted for supportive care and monitoring of his rhythm over the next 24-48 hours. Will check respiratory biofire with his wheezing. Will add antypyretics, IVF, MARILYN nebulizers prn. COVID: POSITIVE CODE: DRN/DNI Allergies Allergy/AdvReac Type Severity Reaction Status Date / Time Penicillins Allergy Severe SEVERE Verified 08/28/22 17:45 SWELLING AND HIVES Sulfa (Sulfonamide Allergy Severe SEVERE Verified 08/28/22 17:45 Antibiotics) SWELLING AND HIVES Home Medications Medication Instructions Recorded Confirmed Type cholecalciferol (vitamin D3) 50 2,000 unit PO DAILY 04/12/18 08/28/22 History mcg (2,000 unit) tablet (Vitamin D3) esomeprazole magnesium 40 mg 40 mg PO Q2D 04/12/18 08/28/22 History capsule,delayed release (Nexium) fexofenadine 180 mg tablet 180 mg PO DAILY PRN allergies 04/12/18 08/28/22 History levothyroxine 200 mcg tablet 200 mcg PO DAILY 04/12/18 08/28/22 History (Synthroid) triamcinolone acetonide 0.1 % 1 applic topical DAILY PRN 04/12/18 08/28/22 History topical cream affected areas vitamin B complex 1 tab PO DAILY 04/12/18 08/28/22 History metoprolol succinate 25 mg 25 mg PO DAILY 01/17/21 08/28/22 History tablet,extended release 24 hr (Toprol XL) atorvastatin 40 mg tablet 40 mg PO QAM 08/28/22 08/28/22 History clobetasol 0.05 % topical cream 1 applic topical BID PRN ITCHINESS 08/28/22 08/28/22 History cyanocobalamin (vitamin B-12) 1,000 mcg PO DAILY 08/28/22 08/28/22 History 1,000 mcg tablet (Vitamin B-12) doxepin 10 mg capsule 10 mg PO HS 08/28/22 08/28/22 History duloxetine 60 mg capsule,delayed 60 mg PO QPM 08/28/22 08/28/22 History release (Cymbalta) gabapentin 600 mg tablet 600 mg PO HS 08/28/22 08/28/22 History oxycodone-acetaminophen 10 mg-325 1 tab PO TID PRN Pain 08/28/22 08/28/22 History mg tablet vilazodone 20 mg tablet 20 mg PO DAILY 08/28/22 08/28/22 History zolpidem 5 mg tablet (Ambien) 5 - 10 mg PO HS PRN Insomnia 08/28/22 08/28/22 History ascorbic acid (vitamin C) 500 mg 500 mg PO QAM #10 tabs 08/30/22 Rx tablet (Vitamin C) prednisone 10 mg tablet See Rx Instructions .Route 08/30/22 Rx .COMPLEX #12 tabs zinc sulfate 50 mg zinc (220 mg) 220 mg PO QAM #10 caps 08/30/22 Rx capsule (Orazinc) Past Med/Surg History Medical History (Updated 08/28/22 @ 20:41 by Lefty Oliva DO) Depression GERD (gastroesophageal reflux disease) CONTROLLED Hearing deficit HEARING AIDS History of alcoholism History of cervical fracture C5-C6 CERVICAL FRACTURE 2013 TREATED CONSERVATIVELY Hx of urinary frequency Hypertension Hypothyroidism Hypothyroidism Mixed conductive and sensorineural hearing loss of right ear with restricted hearing of left ear Prostate cancer PROSTATE S/P PROSTATECTOMY; NO CHEMO OR RADIATION Surgical History History of colonoscopy History of esophagogastroduodenoscopy (EGD) 01/14/16= MAC SEDATION AT [facility] History of hernia repair History of spinal fusion cervical Hx of arthroscopic knee surgery ? left Hx of prostatectomy Hx of shoulder surgery right Social History Smoking Status: Former smoker Tobacco Type: Pipe and Cigars Cigarettes Per Day: 3; Do You Dip or Chew Tobacco: No; Hx Alcohol Use: Yes (10 years ago) Hx Substance Use: No Preferred Language: Latvian Communication Ability: Effective Mixed Liv[employer] Work[employer] Required: No Beliefs That Will Affect Care: None marital status: Single Current Living Situation: Personal Care Facility Current Living Situation Comment: [facility] current occupational status: retired Feels Safe at Home: Yes Assistive Devices: Denture - Upper, Denture - Lower, Glasses, Hearing Aid - Bilateral and Walker Review of Systems Review of Systems: REVIEW OF SYSTEMS: Constitutional: (+) fever, sweats or chills Eyes: No diplopia, no worsening or blurred vision ENT: (+) bilateral hearing aids, no trouble swallowing Respiratory: (+) cough non productive, dyspnea at rest or on exertion Cardiovascular: No chest pain, tightness or palpitations Abdomen: No pain, nausea, vomiting, diarrhea or constipation Musculoskeletal: (+) chronic back and neck Neurologic: No weakness, numbness/tingling, or balance problems Psychiatric: (+) depression Skin: No rash or itch Physical Exam Physical Exam: PHYSICAL EXAM: General: awake, alert, rigors Head: Normocephalic, atraumatic ENT: PERRLA, EOMI, no pharyngeal exudate, mucous membranes dry Neuro: AAO x 3, speech clear and appropriate, strength intact bilaterally 5/5, sensation intact and equal all extremities and dermatomes, no pronator drift Chest: equal rise and fall of the chest, inspiratory and expiratory wheeze, dry non productive cough Cardiac: Regular rate and Irregular rhythm, telemetry reviewed, skin warm dry, cap refill <3 seconds, peripheral pulses +2 no JVD, no murmur, GI: NABS x 4 quadrants, soft, nontender to palpation, no rebound, guarding or tenderness : Spontaneously voiding, no pain, no CVA tenderness, Extremities: Normal inspection, no peripheral edema or erythema, calfs nontender to palpation Psych: Normal mood and affect Skin: no rash or erythema Results & Data Results & Data Vital Signs (Past 12 Hours) Vital Signs Temp Pulse Pulse Resp BP BP Pulse Ox 08/28/22 18:00 98 H 18 158/102 H 92 08/28/22 17:30 109 H 21 89 L 08/28/22 17:14 92 08/28/22 16:35 103 H 25 H 93 08/28/22 16:35 181/111 H 08/28/22 16:32 108 H 29 H 08/28/22 16:00 104 H 24 92 08/28/22 15:30 92 H 29 H 92 08/28/22 15:30 132/94 08/28/22 15:45 97 08/28/22 15:45 08/28/22 13:07 36.6 C 78 18 116/76 92 O2 Del Method 08/28/22 18:00 Room Air 08/28/22 17:30 08/28/22 17:14 08/28/22 16:35 08/28/22 16:35 08/28/22 16:32 08/28/22 16:00 08/28/22 15:30 08/28/22 15:30 08/28/22 15:45 08/28/22 15:45 Room Air 08/28/22 13:07 Laboratory Results Abnormal lab results 08/28/22 08/28/22 08/28/22 Range/Units 15:41 15:41 15:41 Lymph # (Auto) 0.82 L (1.2-3.4) K/uL [place] # (Auto) 1.39 H (0.11-0.59) K/uL PT 12.3 H (9.0-12.0) Seconds Glucose 108 H (70-99(Fasting)) mg/dl SARS-CoV-2 (PCR) (Negative) 08/28/22 Range/Units 15:41 Lymph # (Auto) (1.2-3.4) K/uL [place] # (Auto) (0.11-0.59) K/uL PT (9.0-12.0) Seconds Glucose (70-99(Fasting)) mg/dl SARS-CoV-2 (PCR) POSITIVE A* (Negative) Diagnostic Findings Chest X-Ray 08/28/22 13:56 XR chest 1V not portable HISTORY: 82 years-old Male Chest pain, nonspecific acute hypoxia with weakness COMPARISON: 07/28/2019 TECHNIQUE: PA view of the chest FINDINGS: Cardiac mediastinal and hilar silhouettes are unchanged. Chronic appearing left- sided rib fractures. Spondylitic spurring of the spine. Cervical spinal fusion hardware. No pneumothorax, pleural effusion, airspace consolidation or pulmonary edema. IMPRESSION: No acute process of the chest. ACT 112: Negative or not required by law. The above report was generated using voice recognition software. It may contain grammatical, syntax or spelling errors. Electronically signed by: León Osorio M.D. 08/28/2022 2:[address] 08/28/22 15:36 CT head/brain wo con CLINICAL HISTORY: 82 years-old Male with dizzy. Acute dizziness TECHNIQUE: Multiple axial CT images of the head were obtained without contrast. A dose lowering technique was utilized adhering to the principles of ALARA. CT DOSE: 625.80 mGy.cm COMPARISON: 07/24/2013 FINDINGS: No acute intracranial hemorrhage, midline shift, intracranial mass, hydrocephalus, territorial ischemia or abnormal extra-axial collection. Involutional changes with chronic microvascular ischemic disease. Chronic lacunar infarct of the right frontal lobe choudhary radiata and lentiform nucleus. Cerebral vascular calcifications. Chronic-appearing cerebellar infarcts. The calvarium is intact. The paranasal sinuses, mastoid air cells, and middle ear cavities are clear. IMPRESSION: No acute intracranial abnormality identified. ACT 112: Negative or not required by law. The above report was generated using voice recognition software. It may contain grammatical, syntax or spelling errors. Electronically signed by: León Osorio M.D. 08/28/2022 4:01 PM Medications Administered Home Medications cholecalciferol (vitamin D3) 50 mcg (2,000 unit) tablet (Vitamin D3) 2,000 unit PO DAILY 04/12/18 [History Confirmed 08/28/22] esomeprazole magnesium 40 mg capsule,delayed release (Nexium) 40 mg PO Q2D 04/12/18 [History Confirmed 08/28/22] fexofenadine 180 mg tablet 180 mg PO DAILY PRN allergies 04/12/18 [History Confirmed 08/28/22] levothyroxine 200 mcg tablet (Synthroid) 200 mcg PO DAILY 04/12/18 [History Confirmed 08/28/22] triamcinolone acetonide 0.1 % topical cream 1 applic topical DAILY PRN affected areas 04/12/18 [History Confirmed 08/28/22] vitamin B complex 1 tab PO DAILY 04/12/18 [History Confirmed 08/28/22] metoprolol succinate 25 mg tablet,extended release 24 hr (Toprol XL) 25 mg PO DA MEIR 01/17/21 [History Confirmed 08/28/22] atorvastatin 40 mg tablet 40 mg PO QAM 08/28/22 [History Confirmed 08/28/22] clobetasol 0.05 % topical cream 1 applic topical BID PRN ITCHINESS 08/28/22 [History Confirmed 08/28/22] cyanocobalamin (vitamin B-12) 1,000 mcg tablet (Vitamin B-12) 1,000 mcg PO DAILY 08/28/22 [History Confirmed 08/28/22] doxepin 10 mg capsule 10 mg PO HS 08/28/22 [History Confirmed 08/28/22] duloxetine 60 mg capsule,delayed release (Cymbalta) 60 mg PO QPM 08/28/22 [History Confirmed 08/28/22] gabapentin 600 mg tablet 600 mg PO HS 08/28/22 [History Confirmed 08/28/22] oxycodone-acetaminophen 10 mg-325 mg tablet 1 tab PO TID PRN Pain 08/28/22 [History Confirmed 08/28/22] vilazodone 20 mg tablet 20 mg PO DAILY 08/28/22 [History Confirmed 08/28/22] zolpidem 5 mg tablet (Ambien) 5 - 10 mg PO HS PRN Insomnia 08/28/22 [History Confirmed 08/28/22] Active Medications Albuterol (Albuterol 0.083% Nebu Soln 3 Ml Vial) 2.5 mg NEB NOW STA; Protocol Stop: 08/28/22 18:56 Acetaminophen (Ofirmev) 1,000 mg in 100 mls @ 400 mls/hr IV NOW STA Stop: 08/28/22 19:09 Lactated Ringer's (Lr) 1,000 mls @ 90 mls/hr IV .Q11H7M ONE Stop: 08/29/22 06:10 Ibuprofen (Ibuprofen 600 Mg Tab) 600 mg PO NOW STA Stop: 08/28/22 18:56 Discontinued Medications Sodium Chloride (Nss 1000ml) 1,000 mls @ 999 mls/hr IV .Q1H1M ONE Stop: 08/28/22 16:36 Last Infusion: 08/28/22 17:40 Dose: 0 mls/hr Documented By: Admin: 08/28/22 16:00 Dose: 999 mls/hr Documented By: TOM Metoprolol Tartrate (Metoprolol Tartrate 1 Mg/Ml Vial) 2.5 mg IV NOW STA Stop: 08/28/22 17:19 Last Admin: 08/28/22 17:41 Dose: 2.5 mg Documented By: QGV ECG Additional Comments: Atrial fibrillation with rapid ventricular response Anterior infarct (cited on or before 28-AUG-2022) Abnormal ECG When compared with ECG of 28-AUG-2022 15:24, QT has shortened Code Status & VTE Plan Code Status DNR/DNI Supervising Physician Co-Signing Physician Notes During face to face encounter, I obtained a history of present illness and performed a physical examination, I discussed plan of care with FRANCISCA Rod and patient while answering all of their questions. I reviewed above note and agree with it except for the following: Patient will be admitted for COVID 19 as patient has symptoms of a viral illness. Will hold decadron as patient does not meet requirements at this time. PG Care Time/CCT Total # of Minutes Spent Total Time Spent with Patient: Total time spent is greater than 50% in coordination of care (as documented) at patient's floor/unit and/or counseling patient: Coding Level of Care Code 57183 INT INP/OBS CARE 2/55MIN Medical Decision Making Moderate Complexity Diagnoses COVID U07.1 Malaise and fatigue R53.81; R53.83 Atrial dysrhythmia I49.8 Hypertension I10 Hypothyroidism E03.9
[2022-08-28] MEDS ORDERED: LACTATED RINGER'S 1,000 ML IV ONE (19:04)
[2022-08-28] MEDS ORDERED: IBUPROFEN 600 MG TAB PO STA (19:24)
[2022-08-28] MEDS ORDERED: ALBUTEROL 0.083% NEBU SOLN 3 ML VIAL NEB STA (19:24)
[2022-08-28 19:44] LABS: Magnesium 2.2 mg/dl (1.7-2.4)
[2022-08-28 19:51] LABS: Adenovirus PCR Not Detected (NotDetected); Bordetella parapertussis PCR Not Detected (NotDetected); Bordetella pertussis PCR Not Detected (NotDetected); Chlamydia pneumoniae PCR Not Detected (NotDetected); Coronavirus 229E PCR Not Detected (NotDetected); Coronavirus HKU1 PCR Not Detected (NotDetected); Coronavirus NL63 PCR Not Detected (NotDetected); Coronavirus OC43PCR Not Detected (NotDetected); Human Metapneumovirus PCR Not Detected (NotDetected); Influenza A PCR Not Detected (NotDetected); Influenza B PCR Not Detected (NotDetected); Mycoplasma pneumoniae PCR Not Detected (NotDetected); Parainfluenza Virus 1 PCR Not Detected (NotDetected); Parainfluenza Virus 2 PCR Not Detected (NotDetected); Parainfluenza Virus 3 PCR Not Detected (NotDetected); Parainfluenza Virus 4 PCR Not Detected (NotDetected); Respiratory Syncytial VirusPCR Not Detected (NotDetected); Rhinovirus/Enterovirus PCR Not Detected (NotDetected)
[2022-08-28 19:56] LABS: Coronavirus CoV-2 (COVID19)PCR DETECTED (NotDetected)
[2022-08-28 20:06] LABS: Thyroid Stimulating Hormone 0.271 uIu/ml (0.300-4.500)
[2022-08-28 20:40] LABS: T4 Free Thyroxine 1.44 ng/dl (0.61-1.60)
[2022-08-28] MEDS ORDERED: ZOLPIDEM TARTRATE 5 MG TAB PO ONE (21:44)
[2022-08-28] MEDS ORDERED: ACETAMINOPHEN 325 MG TAB PO PRN (22:24)
[2022-08-28] MEDS ORDERED: IBUPROFEN 600 MG TAB PO PRN (22:24)
[2022-08-28] MEDS ORDERED: POLYETHYLENE (MIRALAX) 17 GM PACK PO PRN (22:24)
[2022-08-28] MEDS ORDERED: ONDANSETRON INJ 2 MG/ML 2 ML VIAL IV PRN (22:24)
[2022-08-28] MEDS ORDERED: FEXOFENADINE HCL 180 MG TAB PO PRN (22:24)
[2022-08-28] MEDS ORDERED: ALBUTEROL 0.083% NEBU SOLN 3 ML VIAL NEB PRN (22:24)
[2022-08-29] MEDS: ENOXAPARIN INJ 40 MG/0.4 ML SYR SQ SCH ×2 (00:04→22:00)
[2022-08-29] MEDS: DOXEPIN HCL 10 MG CAPSULE PO SCH ×2 (00:05→21:59)
[2022-08-29] MEDS: GABAPENTIN 600 MG TAB PO SCH ×2 (00:05→21:58)
[2022-08-29] MEDS: DULoxetine HCL 60 MG CAP PO SCH ×2 (00:05→21:58)
[2022-08-29] MEDS: ATORVASTATIN 40 MG TAB PO SCH ×2 (00:06→08:23)
[2022-08-29] MEDS: LEVOTHYROXINE SODIUM 200 MCG TABLET PO SCH (05:46)
[2022-08-29 06:33] LABS: Hematocrit (blood only) 43.7 % (42.0-52.0); Hemoglobin 14.9 g/dl (14.0-18.0); Immature Granulocytes # (auto) 0.01 K/uL (0.01-0.20); Immature Granulocytes % (auto) 0.3 %; Lymphocytes # (auto) 0.51 K/uL (1.2-3.4); Lymphocytes % (auto) 15.5 %; Mean Corpuscular Hemoglobin 31.8 pg (25.0-34.0); Mean Corpuscular Hgb Conc 34.1 g/dL (32.0-36.0); Mean Corpuscular Volume 93.2 fL (80.0-100.0); Mean Platelet Volume 9.8 fL (9.4-12.4); Monocytes # (auto) 0.25 K/uL (0.11-0.59); Monocytes % (auto) 7.6 %; Neutrophils # (auto) 2.51 K/uL (1.40-6.50); Neutrophils % (auto) 76.6 %; Platelet Count 171 K/uL (130-400); RDW Coefficient of Variation 12.3 % (11.5-14.5); RDW Standard Deviation 42.4 fL (36.4-46.3); Red Blood Count 4.69 M/uL (4.70-6.10); White Blood Count 3.28 K/ul (4.8-10.8)
[2022-08-29 06:49] LABS: BUN Creatinine Ratio 23.3 (10-20); Calcium 8.8 mg/dl (8.6-10.3); Creatinine Clr Calc Pharmacy 83.1 ml/min; Est GFR (African American) 100.1 ml/min; Est GFR (Non-African American) 86.4 ml/min; Magnesium 2.1 mg/dl (1.7-2.4); Potassium 4.4 mmol/L (3.5-5.1)
[2022-08-29] MEDS: CYANOCOBALAMIN (B-12) 500 MCG TABLET PO SCH (08:22)
[2022-08-29] MEDS: CHOLECALCIFEROL 1,000 UNITS 25 MCG TAB PO SCH (08:22)
[2022-08-29] MEDS: METOPROLOL SUCC 25MG EXT REL TAB PO SCH (08:22)
[2022-08-29] MEDS: ZINC SULFATE 220 MG CAPSULE PO SCH (09:00)
[2022-08-29] MEDS: ASCORBIC ACID 500 MG TAB PO SCH (09:00)
[2022-08-29] MEDS ORDERED: PANTOprazole 40 MG TAB PO SCH (09:00)
[2022-08-29] MEDS: methylPREDNISolone 40 MG in SYRINGE 0 ML IV SCH ×3 (10:13→22:58)
--- NOTE | 2022-08-29 10:38 | Electrocardiogram Report ---
Test Reason : Blood Pressure : / mmHG Vent. Rate : 106 BPM Atrial Rate : 000 BPM P-R Int : 000 ms QRS Dur : 084 ms QT Int : 300 ms P-R-T Axes : 000 026 061 degrees QTc Int : 398 ms Atrial fibrillation with rapid ventricular response Anterior infarct (cited on or before 28-AUG-2022) Abnormal ECG When compared with ECG of 28-AUG-2022 15:24, QT has shortened Confirmed by Sathya Che ([id number]) on 08/29/2022 10:38:02 AM Referred By: REFERRED SELF Confirmed By:Jaya Che
--- NOTE | 2022-08-29 16:35 | Hospitalist Progress Note ---
Date of Service August 29, 2022 Assessment & Plan (1) COVID: Plan: Currently he has minimal symptoms. Parenteral steroids have helped. He is on oral vitamin D, vitamin C, and zinc. He is now on room air. (2) Malaise and fatigue: Plan: Resolved with parenteral steroid therapy (3) Atrial dysrhythmia: Plan: History of PAF- ECG irregularly irregular in ED. Heart rate currently controlled. Continue Metoprolol. Telemetry. (4) Hypertension: Plan: Stable. Continue Metoprolol (5) Hypothyroidism: Plan: Stable. Continue current supplemental therapy Plan Hopeful discharge back to [facility] tomorrow, August 30 Admission and Anticipated Discharge Date Admission Date: August 28, 2022 Subjective Alert and oriented. Feeling better. He is now on room air. He is receiving parenteral steroid therapy along with oral vitamin D, vitamin C, and zinc. Hopeful discharge back to [facility] tomorrow, August 30 Review of Systems Review of Systems: Constitutional-no fever or chills ENT-no blurred vision, no double vision, no epistaxis, no sore throat Respiratory-no cough, no wheezing, no shortness of breath Cardiac-no palpitations, no chest pain, no syncope GI-no nausea, vomiting, diarrhea, melena, hematochezia -no urinary retention, no urinary incontinence, no dysuria, no hematuria Musculoskeletal-myalgias resolved with parenteral steroid therapy Skin-no bruising, no rashes, no pruritus Neuro-no isolated weakness, no paresthesia, no weakness Psych-no depression, no anxiety Physical Exam Physical Exam: General-alert and oriented x3, no fevers, no chills HEENT-head atraumatic and normocephalic, pupils equal and reactive to light, extraocular muscles intact Neck-no lymphadenopathy or thyromegaly, trachea midline Chest-clear to auscultation percussion. No rales wheezing or rhonchi Cardiac-regular rate and rhythm, normal S1 and S2 Abdomen-normal bowel sounds, nontender, no hepatosplenomegaly Extremities-no cyanosis, clubbing, or edema Neuro-cranial nerves II through XII intact, motor and sensory function within normal limits, strength symmetrical , no focal deficits Psych-normal affect, normal mood Results & Data Results & Data Vital Signs (Past 12 Hours) Vital Signs Temp Pulse Pulse Resp BP Pulse Ox O2 Del Method 05/16/23 15:28 36.8 C 73 20 167/70 H 92 Room Air 08/29/22 15:01 94 08/29/22 12:06 36.4 C L 68 16 151/76 H 93 Room Air 08/29/22 07:30 62 08/29/22 08:30 Room Air 08/29/22 09:01 95 Room Air 08/29/22 08:19 36.4 C L 80 16 177/84 H 98 Nasal Cannula O2 Flow Rate 08/29/22 15:28 08/29/22 15:01 08/29/22 12:06 08/29/22 07:30 08/29/22 08:30 08/29/22 09:01 08/29/22 08:19 3 Laboratory Results 08/29/22 05:32 08/29/22 05:32 PG Care Time/CCT Total # of Minutes Spent Total Time Spent with Patient: Total time spent is greater than 50% in coordination of care (as documented) at patient's floor/unit and/or counseling patient: Coding Level of Care Code 87003 SUB INP/OBS CARE 3/50MIN Diagnoses COVID U07.1 Malaise and fatigue R53.81; R53.83 Atrial dysrhythmia I49.8 Hypertension I10 Hypothyroidism E03.9
[2022-08-29] MEDS ORDERED: ZOLPIDEM TARTRATE 5 MG TAB PO ONE (21:15)
[2022-08-30] MEDS: LEVOTHYROXINE SODIUM 200 MCG TABLET PO SCH (06:38)
[2022-08-30] MEDS: methylPREDNISolone 40 MG in SYRINGE 0 ML IV SCH (07:47)
[2022-08-30] MEDS: CHOLECALCIFEROL 1,000 UNITS 25 MCG TAB PO SCH (07:48)
[2022-08-30] MEDS: ATORVASTATIN 40 MG TAB PO SCH (07:48)
[2022-08-30] MEDS: METOPROLOL SUCC 25MG EXT REL TAB PO SCH (07:48)
[2022-08-30] MEDS: ZINC SULFATE 220 MG CAPSULE PO SCH (07:49)
[2022-08-30] MEDS: ASCORBIC ACID 500 MG TAB PO SCH (07:49)
[2022-08-30] MEDS: CYANOCOBALAMIN (B-12) 500 MCG TABLET PO SCH (07:49)
[2022-08-30 08:54] LABS: Hematocrit (blood only) 45.4 % (42.0-52.0); Hemoglobin 15.4 g/dl (14.0-18.0); Immature Granulocytes # (auto) 0.06 K/uL (0.01-0.20); Immature Granulocytes % (auto) 0.7 %; Lymphocytes # (auto) 0.75 K/uL (1.2-3.4); Lymphocytes % (auto) 8.8 %; Mean Corpuscular Hemoglobin 30.6 pg (25.0-34.0); Mean Corpuscular Hgb Conc 33.9 g/dL (32.0-36.0); Mean Corpuscular Volume 90.3 fL (80.0-100.0); Mean Platelet Volume 9.7 fL (9.4-12.4); Monocytes # (auto) 0.72 K/uL (0.11-0.59); Monocytes % (auto) 8.4 %; Neutrophils # (auto) 7.02 K/uL (1.40-6.50); Neutrophils % (auto) 82.1 %; Platelet Count 218 K/uL (130-400); RDW Coefficient of Variation 12.2 % (11.5-14.5); RDW Standard Deviation 40.6 fL (36.4-46.3); Red Blood Count 5.03 M/uL (4.70-6.10); White Blood Count 8.55 K/ul (4.8-10.8)
[2022-08-30 09:08] LABS: BUN Creatinine Ratio 27.9 (10-20); Calcium 9.1 mg/dl (8.6-10.3); Creatinine Clr Calc Pharmacy 89.2 ml/min; Est GFR (African American) 103.1 ml/min; Est GFR (Non-African American) 88.9 ml/min; Magnesium 2.1 mg/dl (1.7-2.4); Potassium 4.2 mmol/L (3.5-5.1)
--- NOTE | 2022-08-30 11:20 | Discharge Summary ---
Date of Service August 30, 2022 Admission HPI Per Admitting Provider 82 YOM with medical history of: Hearing loss, hernia repair, cervical neck injury with plating C4-C6, PAF, HTN, HLD, Hypothyroidism, chronic pain. Patient brought to [facility] today from [facility], where he is a Resident, for generalized weakness, loss of appetitie, and chills. This was onset of <24 hours that waxes and wanes, however he has not tried any relieving medications at home. He reports decrease in oral food and liquids over the past 24-36 hours. Also notices increased shortness of breath with wheezing today. Patient denies any vision changes, sinus congestion, cough, sore throat. Patient was noted to be COVID positive today. Further questioning notes that he reports testing positive at [facility] last week on home test and then negative later in the week and then positive again today. He has not been on any other medications. His ECG done in the EMD appears regularly irregular with P waves majority of the time, he reports that years ago he was noted to be " in a fbirilation" and was started on an aspirin and metoprolol at that time. He does not recall any other time noting dysrhythmia. Patient will be admitted for supportive care and monitoring of his rhythm over the next 24-48 hours. Will check respiratory biofire with his wheezing. Will add antypyretics, IVF, MARILYN nebulizers prn. COVID: POSITIVE CODE: DRN/DNI Principal Diagnosis COVID viral infection, transient acute hypoxic respiratory failure, weakness and Malays due to viral syndrome Discharge Exam General-alert and oriented x3, no fevers, no chills HEENT-head atraumatic and normocephalic, pupils equal and reactive to light, extraocular muscles intact Neck-no lymphadenopathy or thyromegaly, trachea midline Chest-clear to auscultation percussion. No rales wheezing or rhonchi Cardiac-regular rate and rhythm, normal S1 and S2 Abdomen-normal bowel sounds, nontender, no hepatosplenomegaly Extremities-no cyanosis, clubbing, or edema Neuro-cranial nerves II through XII intact, motor and sensory function within normal limits, strength symmetrical , no focal deficits Psych-normal affect, normal mood Discharge Data Allergies Allergy/AdvReac Type Severity Reaction Status Date / Time Penicillins Allergy Severe SEVERE Verified 08/28/22 17:45 SWELLING AND HIVES Sulfa (Sulfonamide Allergy Severe SEVERE Verified 08/28/22 17:45 Antibiotics) SWELLING AND HIVES Consultations 08/28/22 17:18 ED Decision to Admit Stat Ordered Studies 08/28/22 15:36 CT head/brain wo con Stat Hospital Course (1) COVID: Currently he has minimal symptoms. Parenteral steroids have helped. He is on oral vitamin D, vitamin C, and zinc. He is now on room air. He will be discharged on a prednisone tapering dose (2) Malaise and fatigue: Resolved with parenteral steroid therapy (3) Atrial dysrhythmia: History of PAF- ECG irregularly irregular in ED. Heart rate currently controlled. Continue Metoprolol. Telemetry. (4) Hypertension: Stable. Continue Metoprolol (5) Hypothyroidism: Stable. Continue current supplemental therapy Plan Plan discharge back to [facility] today, August 30 Total Time Total Time Spent Total Time Spent (In Minutes): 40 minutes Discharge Plan Discharge Items Patient Disposition: Personal Shelter Reason For Visit: WEAKNESS, COVID Discharge Diagnosis: COVID, acute hypoxic respiratory failure, viral syndrome Activity: Resume your previous activity Non-emergency contact: Primary Care Provider Call non-emergency contact if: you have any medication questions and your symptoms worsen Follow-up/Referrals: Magaly Nicole [Primary Care Provider] - Diet: Regular and Heart Healthy Addtl Attending Provider Instructions: Take prednisone in a tapering dose fashion as directed. Continue vitamin D, vitamin C, and zinc for 1 more week. You can continue to take vitamin D indefinitely however Pending Studies at Discharge: No Stand-Alone Forms: My [employer], Smoking Cessation Skilled Items Patient informed of condition?: Yes DNR: Yes Discharge Level of Care: Other Communicable Disease: Yes Discharge Prognosis: Stable Lines: None Urinary Catheter: No Medications and DC Order Prescriptions: New zinc sulfate [Orazinc] 50 mg zinc (220 mg) Capsule 220 mg PO QAM Qty: 10 0RF ascorbic acid (vitamin C) [Vitamin C] 500 mg Tablet 500 mg PO QAM Qty: 10 0RF prednisone 10 mg tablet See Rx Instructions .ROUTE .COMPLEX Qty: 12 0RF Rx Instructions: 10 mg orally 3 times a day for 2 days, then 10 mg twice a day for 2 days, then 10 mg once a day for 2 days, then stop Continued metoprolol succinate [Toprol XL] 25 mg tablet extended release 24 hr 25 mg PO DAILY fexofenadine 180 mg Tablet 180 mg PO DAILY PRN (Reason: allergies) triamcinolone acetonide 0.1 % Cream 1 applic TOPICAL DAILY PRN (Reason: affected areas) esomeprazole magnesium [Nexium] 40 mg Capsule,Delayed Release(Dr/Ec) 40 mg PO Q2D vitamin B complex Tablet 1 tab PO DAILY levothyroxine [Synthroid] 200 mcg Tablet 200 mcg PO DAILY cholecalciferol (vitamin D3) [Vitamin D3] 2,000 unit Tablet 2,000 unit PO DAILY atorvastatin 40 mg tablet 40 mg PO QAM gabapentin 600 mg tablet 600 mg PO HS clobetasol 0.05 % Cream 1 applic TOPICAL BID PRN (Reason: ITCHINESS) cyanocobalamin (vitamin B-12) [Vitamin B-12] 1,000 mcg Tablet 1,000 mcg PO DAILY doxepin 10 mg Capsule 10 mg PO HS oxycodone-acetaminophen 10-325 mg tablet 1 tab PO TID PRN (Reason: Pain) zolpidem [Ambien] 5 mg Tablet 5 - 10 mg PO HS PRN (Reason: Insomnia) duloxetine [Cymbalta] 60 mg Capsule,Delayed Release(Dr/Ec) 60 mg PO QPM Rx Instructions: Q AFTERNOON vilazodone 20 mg Tablet 20 mg PO DAILY Rx Instructions: must administer with a meal/food Discharge Orders: Discharge Order (Routine); Ordered 08/30/22 Ordered By: Seymour Sorensen Admission Data Admit Date/Time: 08/28/22 19:03 Attending Provider: Seymour Sorensen Admit Provider: Corby Sr Primary Care Provider: Magaly Nicole Other Providers: Corby Sr Other Interventions: Discharge Summary Assessment (RN) Last Done: 08/30/22 10:47 Coding Level of Care Code 42679 INP/OBS DISCH >30 MIN Diagnoses COVID U07.1 Malaise and fatigue R53.81; R53.83 Atrial dysrhythmia I49.8 Hypertension I10 Hypothyroidism E03.9
== END 2022-08-30 13:14 | disposition home or self-care (01) ==
LOC: ED 13:17 → 2W 13:17 → SUATTDRO 19:03 → 2W 21:43

== ENCOUNTER 2023-10-17 00:38 | Observation (INO) ==
--- NOTE | 2023-10-17 00:49 | Emergency Department Note ---
Impression & Plan Fall from standing, Acute hypoxemic respiratory failure, Ambulatory dysfunction, Generalized weakness, Elevated brain natriuretic peptide (BNP) level, Alcohol intoxication ED Provider Note HISTORY OF PRESENT ILLNESS: Patient is an 83-year-old male presenting after being found down. Patient presents from [facility]. He reportedly was found down by his bed on the floor. Patient does not know the events leading up to him being on the ground. He reportedly was drinking alcohol tonight but unknown what type of alcohol. Patient has no complaints on arrival. Denies any chest pain, shortness of breath or lightheadedness prior to his fall. He is on Eliquis and aspirin. Denies any numbness or tingling in his extremities. ROS: as above PHYSICAL EXAM: Constitutional: Patient appears in no acute distress. Patient appears intoxicated and is slurring his words. Smells strongly of alcohol. HENT: Head: Normocephalic and atraumatic. Eyes: EOMI, PERRL Mouth/Throat: Mucous membranes moist. Neck: Trachea midline. Neck supple. No midline cervical spine tenderness to palpation Cardiovascular: RRR, No murmurs, rubs or gallops. Intact distal pulses. Pulmonary/Chest: No respiratory distress. Breath sounds clear and equal bilaterally. No wheezes or rales. No chest wall tenderness to palpation. No evidence of flail chest or ecchymosis. Abdominal: Abdomen soft, no tenderness, rebound or guarding. Back: No midline spinal tenderness, no paraspinal tenderness, no CVA tenderness. Patient is able to straight leg raise bilaterally without any pain in the low back Musculoskeletal: No tenderness or deformity noted. No tenderness to palpation of the hips and no laxity to the pelvis on palpation. +2 pitting edema of bilateral lower extremities Skin: Warm and dry. No rash, erythema, pallor or cyanosis Psychiatric: Appropriate mood and affect for situation. Neurological: Alert but slurring his speech. CN II-XII grossly intact, moving all extremities equally and fully. MDM: - Vitals signs showed hypertension. - History obtained via EMS, given patient's intoxication. History as above. - Chronic conditions affecting care: hx of alcoholism; prostate cancer (s/p prostatectomy); HTN; hypothyroidism; atrial dysrhythmia - Differential diagnoses include, but are not limited to: CVA; intracranial hemorrhage; pelvic fracture; pneumothorax; ACS; syncope - Order placed for continuous cardiac monitoring. At this time, monitor showed rate of 71 bpm with normal sinus rhythm, per my interpretation. - External medical records reviewed. Discharge summary dated 08/30/2022 was reviewed. Patient was COVID-positive during his stay in early August. He was also admitted for transient acute hypoxic respiratory failure. - EKG interpreted by myself showed normal sinus rhythm. Rate 71 bpm. QT 406. No acute ischemic changes. - Laboratory workup interpreted by myself showed normal WBC; normal PT/INR; stable electrolytes; normal troponin; elevated alcohol (157.4); elevated BNP (142) - CT head wo contrast negative for acute intracranial pathology - CT cervical spine wo contrast negative for acute injury. Noted to have chronic changes. - Per nursing staff, patient was noted to desaturate to 87% on room air while sleeping. He was placed on 3 L nasal cannula. - CXR negative for pneumonia, per my interpretation - Patient attempted to ambulate with nursing staff, as he thought he could. However, he was very unsteady on his feet. He was noted to become very wheezy when he got back to the examination bed and had saturations of 86% on room air. CT of the chest was ordered for further evaluation. DuoNeb ordered. - CT chest with IV contrast negative for acute pathology. - Discussion was had with caser shoe parts about patient's case and need for admission - Hospitalist, Dr. Bhatt, consulted for admission - Patient admitted to [facility] hospitalist service for further evaluation and management. ASSESSMENT AND PLAN: Diagnosis: fall from standing; acute hypoxic respiratory failure; generalized weakness; ambulatory dysfunction; alcohol intoxication Plan: admit Past Med/Surg History Problem List (Updated 10/17/23 @ 05:30 by Jessi Chavez MD) Alcohol intoxication (Acute) Elevated brain natriuretic peptide (BNP) level (Acute) Generalized weakness (Acute) Ambulatory dysfunction (Acute) Acute hypoxemic respiratory failure (Acute) Fall from standing (Acute) Vitamin D deficiency Numbness COVID-19 (Acute) COVID (Acute) Weakness (Acute) Hypoxic (Acute) Malaise and fatigue COVID Mixed conductive and sensorineural hearing loss of right ear with restricted hearing of left ear Sensorineural hearing loss (SNHL) Impacted cerumen of both ears History of alcoholism Encounter for pre-operative examination Hearing deficit HEARING AIDS Prostate cancer PROSTATE S/P PROSTATECTOMY; NO CHEMO OR RADIATION Hematoma (Acute 04/10/14) Medical History (Updated 10/17/23 @ 05:30 by Jessi Chavez MD) Atrial dysrhythmia Hx of urinary frequency Hypothyroidism Depression History of cervical fracture C5-C6 CERVICAL FRACTURE 2013 TREATED CONSERVATIVELY Hypertension Hypothyroidism GERD (gastroesophageal reflux disease) CONTROLLED Surgical History History of hernia repair History of esophagogastroduodenoscopy (EGD) 01/14/16= MAC SEDATION AT [facility] Hx of shoulder surgery right Hx of arthroscopic knee surgery ? left Hx of prostatectomy History of colonoscopy Social History Smoking Status: Former smoker Tobacco Type: Pipe and Cigars Cigarettes Per Day: 3; Do You Dip or Chew Tobacco: No; Hx Alcohol Use: Yes (10 years ago) Hx Substance Use: No Preferred Language: Hungarian Communication Ability: Effective [employer] Code Enforcement Officer Required: No Beliefs That Will Affect Care: None marital status: Single Current Living Situation: Personal Care Facility Current Living Situation Comment: [facility] current occupational status: retired Feels Safe at Home: Yes Assistive Devices: Denture - Upper, Denture - Lower, Glasses, Hearing Aid - Bilateral and Walker Allergies Allergies Allergy/AdvReac Type Severity Reaction Status Date / Time Penicillins Allergy Severe SEVERE Verified 03/29/23 10:49 SWELLING AND HIVES Sulfa (Sulfonamide Allergy Severe SEVERE Verified 03/29/23 10:49 Antibiotics) SWELLING AND HIVES Home Meds Home Medications Medication Instructions Recorded Confirmed cholecalciferol (vitamin D3) 50 2,000 unit PO DAILY 04/12/18 03/29/23 mcg (2,000 unit) tablet (Vitamin D3) esomeprazole magnesium 40 mg 40 mg PO Q2D 04/12/18 03/29/23 capsule,delayed release (Nexium) triamcinolone acetonide 0.1 % 1 applic topical DAILY PRN 04/12/18 03/29/23 topical cream affected areas metoprolol succinate 25 mg 25 mg PO DAILY 01/17/21 03/29/23 tablet,extended release 24 hr (Toprol XL) clobetasol 0.05 % topical cream 1 applic topical BID PRN ITCHINESS 08/28/22 03/29/23 cyanocobalamin (vitamin B-12) 1,000 mcg PO DAILY 08/28/22 03/29/23 1,000 mcg tablet (Vitamin B-12) duloxetine 60 mg capsule,delayed 60 mg PO QPM 08/28/22 03/29/23 release (Cymbalta) gabapentin 600 mg tablet 600 mg PO HS 08/28/22 03/29/23 oxycodone-acetaminophen 10 mg-325 1 tab PO TID PRN Pain 08/28/22 03/29/23 mg tablet apixaban 5 mg tablet (Eliquis) 5 mg PO BID 03/29/23 03/29/23 gabapentin 100 mg capsule 100 mg PO BID 03/29/23 03/29/23 levothyroxine 175 mcg tablet 175 mcg PO DAILY 03/29/23 03/29/23 mirtazapine 30 mg tablet 30 mg PO HS 03/29/23 03/29/23 ramelteon 8 mg tablet 8 mg PO HS 03/29/23 03/29/23 suvorexant 20 mg tablet (Belsomra) 20 mg PO HS 03/29/23 03/29/23 Results & Data (ED) Vital Signs Vital Signs - 24 hr 10/17/23 00:44 10/17/23 00:49 10/17/23 00:50 Temperature 36.9 C Temperature Source Oral Pulse Rate 72 Pulse Rate [Apical] 71 Respiratory Rate 16 19 Respiratory Effort / Characteristics Non-Labored Respiratory Depth Normal Respiratory Pattern Regular Blood Pressure 151/86 H Blood Pressure [Right Arm] 142/87 H Blood Pressure Mean 107 Blood Pressure Mean [Right Arm] 105 Pulse Oximetry 90 90 92 Oxygen Delivery Method Room Air Room Air Room Air Oxygen Flow Rate Sepsis Recent Fever Within 48 Hours No Sepsis New/Unexplained Change in Mental Status N/A Sepsis Action Taken by Nursing No Action Required 10/17/23 01:16 10/17/23 02:00 10/17/23 04:00 Temperature Temperature Source Pulse Rate 74 Pulse Rate [Apical] 75 66 Respiratory Rate 17 22 Respiratory Effort / Characteristics Respiratory Depth Respiratory Pattern Blood Pressure Blood Pressure [Right Arm] 137/79 161/89 H Blood Pressure Mean Blood Pressure Mean [Right Arm] 98 113 Pulse Oximetry 97 95 Oxygen Delivery Method Nasal Cannula Room Air Oxygen Flow Rate 3 Sepsis Recent Fever Within 48 Hours Sepsis New/Unexplained Change in Mental Status Sepsis Action Taken by Nursing 10/17/23 04:15 10/17/23 05:29 Temperature Temperature Source Pulse Rate 68 Pulse Rate [Apical] 67 Respiratory Rate 17 Respiratory Effort / Characteristics Non-Labored Spontaneous Respiratory Depth Respiratory Pattern Blood Pressure Blood Pressure [Right Arm] Blood Pressure Mean Blood Pressure Mean [Right Arm] Pulse Oximetry 96 Oxygen Delivery Method Nasal Cannula Oxygen Flow Rate 2 Sepsis Recent Fever Within 48 Hours Sepsis New/Unexplained Change in Mental Status Sepsis Action Taken by Nursing Laboratory Data 10/17/23 00:51 10/17/23 00:51 Lab Results 10/17/23 10/17/23 Range/Units 00:51 04:06 WBC 5.28 (4.8-10.8) K/ul RBC 4.77 (4.70-6.10) M/uL Hgb 15.1 (14.0-18.0) g/dl Hct 45.2 (42.0-52.0) % MCV 94.8 (80.0-100.0) fL MCH 31.7 (25.0-34.0) pg MCHC 33.4 (32.0-36.0) g/dL RDW Std Deviation 46.2 (36.4-46.3) fL RDW Coeff of Edward 13.2 (11.5-14.5) % Plt Count 198 (130-400) K/uL MPV 9.5 (9.4-12.4) fL Immature Gran % (Auto) 0.2 % Neut % (Auto) 50.1 % Lymph % (Auto) 25.8 % [place] % (Auto) 16.5 % Eos % (Auto) 6.8 % Baso % (Auto) 0.6 % Neut # (Auto) 2.65 (1.40-6.50) K/uL Lymph # (Auto) 1.36 (1.20-3.40) K/uL [place] # (Auto) 0.87 H (0.11-0.59) K/uL Eos # (Auto) 0.36 (0.00-0.50) K/uL Baso # (Auto) 0.03 (0.00-0.20) K/uL Immature Gran # (Auto) 0.01 (0.01-0.20) K/uL PT 11.2 (9.0-12.0) Seconds INR 1.0 (0.9-1.1) Sodium 139 (136-145) mmol/L Potassium 3.9 (3.5-5.1) mmol/L Chloride 108 H (98-107) mmol/L Carbon Dioxide 22 (21-32) mmol/L Anion Gap 9 (3-11) BUN 16 (6-23) mg/dl Creatinine 0.86 (0.6-1.4) mg/dl Est Cr Clr Drug Dosing 78.2 ml/min Est GFR ( Amer) 92.9 ml/min Est GFR (Non-Af Amer) 80.2 ml/min BUN/Creatinine Ratio 18.6 (10-20) Glucose 116 H (70-99(Fasting)) mg/dl Calcium 8.8 (8.6-10.3) mg/dl Magnesium 2.0 (1.7-2.4) mg/dl Total Bilirubin 0.3 (0.2-1.0) mg/dl AST 22 (13-39) U/L ALT 8 (7-52) U/L Alkaline Phosphatase 76 (34-104) U/L Total Creatine Kinase 88 (30-223) U/L Troponin I High Sens 6.8 (0-20) pg/ml B-Natriuretic Peptide 142 H (0-100) pg/ml Total Protein 6.6 (6.0-8.3) gm/dl Albumin 4.0 (3.4-5.0) gm/dl Globulin 2.6 (2.5-4.0) gm/dl Albumin/Globulin Ratio 1.5 (0.9-2) Lipase 25 (11-82) U/L Ethyl Alcohol mg/dL 157.4 H (<10.0) mg/dl SARS-CoV-2 (PCR) NEGATIVE (Negative) Influenza Type A (PCR) Negative (Neg) Influenza Type B (PCR) Negative (Neg) RSV (RT-PCR) Negative (Neg) Administered Medications Discontinued Medications Albuterol (Albut/Ipratrop 3mg/0.5mg Neb 3 Ml Vial) 3 ml NEB NOW STA; Protocol Stop: 10/17/23 03:58 Last Admin: 10/17/23 04:13 Dose: 3 ml Documented By: EML Ioversol (Optiray 320 100ml) 100 ml IV ONCE ONE Stop: 10/17/23 04:41 Last Admin: 10/17/23 04:40 Dose: 93 ml Documented By: [facility] Data Radiologist's Impression: Cervical Spine CT 10/17/23 00:47 Exam(s): CT C SPINE EXAM: CT Cervical Spine Without Intravenous Contrast CLINICAL HISTORY: fall from standing; on Eliquis. TECHNIQUE: Axial computed tomography images of the cervical spine without intravenous contrast. CTDI is 26.64 mGy and DLP is 549.66 mGy-cm. Automated exposure control was utilized for the study. A dose lowering technique was utilized adhering to the principles of ALARA. COMPARISON: Plain radiographs 07/01/2020. Cranial cervical junction imaging on the CT head without contrast 09/08/2022 and MRI head 03/25/2023 FINDINGS: Vertebrae: The vertebral bodies are intact without acute osseous traumatic injury. Anterior fusion noted C5-C7. No anterolisthesis or retrolisthesis is identified with straightening of the normal cervical lordosis. 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 These lie immediately inferior to the clivus. 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 There is also fusion of the bilateral facets at C2-3 level. The facet joints are well aligned without subluxation or dislocation. Diffuse bilateral facet hypertrophic arthrosis noted. The pedicles, transverse processes and spinous processes are intact. Discs/spinal canal/neural foramina: See above. No significant osseous central canal stenosis. Minimal hypertrophic osteophyte changes, most prominent anteriorly. Soft tissues: No significant traumatic soft tissue abnormality suspected. Lung apices: The included lung apices are unremarkable. IMPRESSION: 1. No acute osseous traumatic injury or significant abnormal alignment involving the cervical spine. Incidental anterior fusion from C5-C7. 2. 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 Chronic multilevel degenerative changes incidentally noted. Electronically signed by: Leoncio Greene MD 10/17/23 02:[address] 10/17/23 00:47 Exam(s): CT HEAD Without Contrast EXAM: CT Head Without Intravenous Contrast CLINICAL HISTORY: fall from standing; on Eliquis. TECHNIQUE: Axial computed tomography images of the head/brain without intravenous contrast. CTDI is 36.43 mGy and DLP is 624.41 mGy-cm. Automated exposure control was utilized for the study. A dose lowering technique was utilized adhering to the principles of ALARA. COMPARISON: CT head without contrast dated 09/08/2022 FINDINGS: Brain: No intracranial hemorrhage. No significant mass-effect. Stable remote lacunar infarct involving the right basal ganglia. Diffuse underlying parenchymal involutional changes and extensive deep white matter hypodense presumed microvascular changes noted. Similar area of cerebellar encephalomalacia laterally on the left. Ventricles: Unremarkable. No ventriculomegaly. Bones/joints: Unremarkable. No acute fracture. Soft tissues: No significant overlying acute traumatic soft tissue abnormality identified. No radiopaque foreign body. Sinuses: Unremarkable as visualized. No acute sinusitis. Mastoid air cells: Unremarkable as visualized. No mastoid effusion. IMPRESSION: No acute intracranial process or significant alteration from the prior examination. Chronic underlying presumed age-related parenchymal involutional changes and extensive deep white matter presumed microvascular changes, not significantly altered from the previous examination. Electronically signed by: Leoncio Greene MD 10/17/23 02:03 AM Discharge Plan Visit Data Chief Complaint: Fall Stated Complaint: FOUND ON FLOOR, +ETOH AND BLOOD THINNERS ED Provider: Jessi Chavez Discharge Problem: Fall from standing, Acute hypoxemic respiratory failure, Ambulatory dysfunction, Generalized weakness, Elevated brain natriuretic peptide (BNP) level, Alcohol intoxication Forms Stand Alone Forms: My [facility] Prescriptions Prescriptions: No Action Belsomra 20 mg tablet 20 mg PO HS Eliquis 5 mg tablet 5 mg PO BID gabapentin 100 mg capsule 100 mg PO BID levothyroxine 175 mcg tablet 175 mcg PO DAILY mirtazapine 30 mg tablet 30 mg PO HS ramelteon 8 mg tablet 8 mg PO HS metoprolol succinate [Toprol XL] 25 mg tablet extended release 24 hr 25 mg PO DAILY triamcinolone acetonide 0.1 % Cream 1 applic TOPICAL DAILY PRN (Reason: affected areas) esomeprazole magnesium [Nexium] 40 mg Capsule,Delayed Release(Dr/Ec) 40 mg PO Q2D cholecalciferol (vitamin D3) [Vitamin D3] 2,000 unit Tablet 2,000 unit PO DAILY gabapentin 600 mg tablet 600 mg PO HS clobetasol 0.05 % Cream 1 applic TOPICAL BID PRN (Reason: ITCHINESS) cyanocobalamin (vitamin B-12) [Vitamin B-12] 1,000 mcg Tablet 1,000 mcg PO DAILY oxycodone-acetaminophen 10-325 mg tablet 1 tab PO TID PRN (Reason: Pain) duloxetine [Cymbalta] 60 mg Capsule,Delayed Release(Dr/Ec) 60 mg PO QPM Rx Instructions: Q AFTERNOON Referrals Referrals: Huey Lozada MD [Primary Care Provider] -
[2023-10-17 01:11] LABS: Basophils # (auto) 0.03 K/uL (0.00-0.20); Basophils % (auto) 0.6 %; Eosinophils # (auto) 0.36 K/uL (0.00-0.50); Eosinophils % (auto) 6.8 %; Hematocrit (blood only) 45.2 % (42.0-52.0); Hemoglobin 15.1 g/dl (14.0-18.0); Immature Granulocytes # (auto) 0.01 K/uL (0.01-0.20); Immature Granulocytes % (auto) 0.2 %; Lymphocytes # (auto) 1.36 K/uL (1.20-3.40); Lymphocytes % (auto) 25.8 %; Mean Corpuscular Hemoglobin 31.7 pg (25.0-34.0); Mean Corpuscular Hgb Conc 33.4 g/dL (32.0-36.0); Mean Corpuscular Volume 94.8 fL (80.0-100.0); Mean Platelet Volume 9.5 fL (9.4-12.4); Monocytes # (auto) 0.87 K/uL (0.11-0.59); Monocytes % (auto) 16.5 %; Neutrophils # (auto) 2.65 K/uL (1.40-6.50); Neutrophils % (auto) 50.1 %; Platelet Count 198 K/uL (130-400); RDW Coefficient of Variation 13.2 % (11.5-14.5); RDW Standard Deviation 46.2 fL (36.4-46.3); Red Blood Count 4.77 M/uL (4.70-6.10); White Blood Count 5.28 K/ul (4.8-10.8)
[2023-10-17 01:28] LABS: Albumin Globulin Ratio 1.5 (0.9-2); BUN Creatinine Ratio 18.6 (10-20); Bilirubin,Total 0.3 mg/dl (0.2-1.0); Calcium 8.8 mg/dl (8.6-10.3); Creatinine Clr Calc Pharmacy 78.2 ml/min; Est GFR (African American) 92.9 ml/min; Est GFR (Non-African American) 80.2 ml/min; Globulin 2.6 gm/dl (2.5-4.0); Potassium 3.9 mmol/L (3.5-5.1); Total Protein 6.6 gm/dl (6.0-8.3)
[2023-10-17 01:35] LABS: Prothrombin Time 11.2 Seconds (9.0-12.0); Troponin I High Sensitivity 6.8 pg/ml (0-20)
--- NOTE | 2023-10-17 02:01 | CT Scan Report ---
Exam(s): CT C SPINE EXAM: CT Cervical Spine Without Intravenous Contrast CLINICAL HISTORY: fall from standing; on Eliquis. TECHNIQUE: Axial computed tomography images of the cervical spine without intravenous contrast. CTDI is 26.64 mGy and DLP is 549.66 mGy-cm. Automated exposure control was utilized for the study. A dose lowering technique was utilized adhering to the principles of ALARA. COMPARISON: Plain radiographs 07/01/2020. Cranial cervical junction imaging on the CT head without contrast 09/08/2022 and MRI head 03/25/2023 FINDINGS: Vertebrae: The vertebral bodies are intact without acute osseous traumatic injury. Anterior fusion noted C5-C7. No anterolisthesis or retrolisthesis is identified with straightening of the normal cervical lordosis. 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 These lie immediately inferior to the clivus. 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 There is also fusion of the bilateral facets at C2-3 level. The facet joints are well aligned without subluxation or dislocation. Diffuse bilateral facet hypertrophic arthrosis noted. The pedicles, transverse processes and spinous processes are intact. Discs/spinal canal/neural foramina: See above. No significant osseous central canal stenosis. Minimal hypertrophic osteophyte changes, most prominent anteriorly. Soft tissues: No significant traumatic soft tissue abnormality suspected. Lung apices: The included lung apices are unremarkable. IMPRESSION: 1. No acute osseous traumatic injury or significant abnormal alignment involving the cervical spine. Incidental anterior fusion from C5-C7. 2. 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 Chronic multilevel degenerative changes incidentally noted. Electronically signed by: Leoncio Greene MD 10/17/23 02:00 AM
--- NOTE | 2023-10-17 02:03 | CT Scan Report ---
Exam(s): CT HEAD Without Contrast EXAM: CT Head Without Intravenous Contrast CLINICAL HISTORY: fall from standing; on Eliquis. TECHNIQUE: Axial computed tomography images of the head/brain without intravenous contrast. CTDI is 36.43 mGy and DLP is 624.41 mGy-cm. Automated exposure control was utilized for the study. A dose lowering technique was utilized adhering to the principles of ALARA. COMPARISON: CT head without contrast dated 09/08/2022 FINDINGS: Brain: No intracranial hemorrhage. No significant mass-effect. Stable remote lacunar infarct involving the right basal ganglia. Diffuse underlying parenchymal involutional changes and extensive deep white matter hypodense presumed microvascular changes noted. Similar area of cerebellar encephalomalacia laterally on the left. Ventricles: Unremarkable. No ventriculomegaly. Bones/joints: Unremarkable. No acute fracture. Soft tissues: No significant overlying acute traumatic soft tissue abnormality identified. No radiopaque foreign body. Sinuses: Unremarkable as visualized. No acute sinusitis. Mastoid air cells: Unremarkable as visualized. No mastoid effusion. IMPRESSION: No acute intracranial process or significant alteration from the prior examination. Chronic underlying presumed age-related parenchymal involutional changes and extensive deep white matter presumed microvascular changes, not significantly altered from the previous examination. Electronically signed by: Leoncio Greene MD 10/17/23 02:03 AM
[2023-10-17] MEDS: ALBUT/IPRATROP 3MG/0.5MG NEB 3 ML VIAL NEB STA (04:13)
[2023-10-17] MEDS: OPTIRAY 320 100ml IV ONE (04:40)
[2023-10-17 05:01] LABS: Influenza A virus by PCR Negative (Neg); Influenza B virus by PCR Negative (Neg); RSV by PCR Negative (Neg); SARS CoV2 RNA(COVID-19) Ceph NEGATIVE (Negative)
--- NOTE | 2023-10-17 05:30 | History & Physical Report ---
Date of Service October 17, 2023 Assessment & Plan (1) Alcohol intoxication: Plan: Patient intoxicated. Has history of ataxic gait. B12 1051 on 03/30/23. -Give banana bag -Thiamine and folate PO daily -AWSS at risk protocol (2) Ambulatory dysfunction: Plan: Patient with history of ataxic gait in the ER. Intoxication likely adding to his unsteadiness -PT/OT evaluation -Fall precautions (3) Acute hypoxemic respiratory failure: Plan: Hypoxic with ambulation -O2 as needed -IS -Albuterol PRN Plan Atrial arrhythmia -Continue Apixaban -Continue Metoprolol Mood disorder -Continue Gabapentin -Continue Cymbalta -Continue Topamax Hypothyroidism -Continue Synthroid History of Present Illness Chief Complaint: found down Primary Care Provider: Huey Lozada MD Dov Mcbride is an 83yo male with history of HTN, GERD, atrial dysrhythmia presenting from [facility] after being found down. Patient reportedly drinks daily. Has history of ataxic gait as well. Patient does not recall the events prior to arrival. He has no complaints at this time. Denies pain. In the ER he is afebrile, HD stable. Patient unable to ambulate in the ER. Became short of breath and wheezing with saturations of 86% after ambulatory trial. Allergies Allergy/AdvReac Type Severity Reaction Status Date / Time Penicillins Allergy Severe SEVERE Verified 03/29/23 10:49 SWELLING AND HIVES Sulfa (Sulfonamide Allergy Severe SEVERE Verified 03/29/23 10:49 Antibiotics) SWELLING AND HIVES Home Medications Medication Instructions Recorded Confirmed Type cholecalciferol (vitamin D3) 50 2,000 unit PO DAILY 04/12/18 03/29/23 History mcg (2,000 unit) tablet (Vitamin D3) esomeprazole magnesium 40 mg 40 mg PO Q2D 04/12/18 03/29/23 History capsule,delayed release (Nexium) triamcinolone acetonide 0.1 % 1 applic topical DAILY PRN 04/12/18 03/29/23 History topical cream affected areas metoprolol succinate 25 mg 25 mg PO DAILY 01/17/21 03/29/23 History tablet,extended release 24 hr (Toprol XL) clobetasol 0.05 % topical cream 1 applic topical BID PRN ITCHINESS 08/28/22 03/29/23 History cyanocobalamin (vitamin B-12) 1,000 mcg PO DAILY 08/28/22 03/29/23 History 1,000 mcg tablet (Vitamin B-12) duloxetine 60 mg capsule,delayed 60 mg PO QPM 08/28/22 03/29/23 History release (Cymbalta) gabapentin 600 mg tablet 600 mg PO HS 08/28/22 03/29/23 History oxycodone-acetaminophen 10 mg-325 1 tab PO TID PRN Pain 08/28/22 03/29/23 History mg tablet apixaban 5 mg tablet (Eliquis) 5 mg PO BID 03/29/23 03/29/23 History gabapentin 100 mg capsule 100 mg PO BID 03/29/23 03/29/23 History levothyroxine 175 mcg tablet 175 mcg PO DAILY 03/29/23 03/29/23 History mirtazapine 30 mg tablet 30 mg PO HS 03/29/23 03/29/23 History ramelteon 8 mg tablet 8 mg PO HS 03/29/23 03/29/23 History suvorexant 20 mg tablet (Belsomra) 20 mg PO HS 03/29/23 03/29/23 History Past Med/Surg History Problem List Alcohol intoxication (Acute) Elevated brain natriuretic peptide (BNP) level (Acute) Generalized weakness (Acute) Ambulatory dysfunction (Acute) Acute hypoxemic respiratory failure (Acute) Fall from standing (Acute) Vitamin D deficiency Numbness COVID-19 (Acute) COVID (Acute) Weakness (Acute) Hypoxic (Acute) Malaise and fatigue COVID Mixed conductive and sensorineural hearing loss of right ear with restricted hearing of left ear Sensorineural hearing loss (SNHL) Impacted cerumen of both ears History of alcoholism Encounter for pre-operative examination Hearing deficit HEARING AIDS Prostate cancer PROSTATE S/P PROSTATECTOMY; NO CHEMO OR RADIATION Hematoma (Acute 07/24/13) Medical History Atrial dysrhythmia Hx of urinary frequency Hypothyroidism Depression History of cervical fracture C5-C6 CERVICAL FRACTURE 2013 TREATED CONSERVATIVELY Hypertension Hypothyroidism GERD (gastroesophageal reflux disease) CONTROLLED Surgical History History of hernia repair History of esophagogastroduodenoscopy (EGD) 01/14/16= MAC SEDATION AT [facility] Hx of shoulder surgery right Hx of arthroscopic knee surgery ? left Hx of prostatectomy History of colonoscopy Social History Smoking Status: Former smoker Tobacco Type: Pipe and Cigars Cigarettes Per Day: 3; Do You Dip or Chew Tobacco: No; Hx Alcohol Use: Yes (10 years ago) Hx Substance Use: No Preferred Language: Tajik Communication Ability: Effective Community Engagement Leader Required: No Beliefs That Will Affect Care: None marital status: Single Current Living Situation: Personal Care Facility Current Living Situation Comment: [facility] current occupational status: retired Feels Safe at Home: Yes Assistive Devices: Denture - Upper, Denture - Lower, Glasses, Hearing Aid - Bilateral and Walker Review of Systems Review of Systems: All systems reviewed & are unremarkable except as noted in HPI & below Physical Exam Physical Exam: General: patient somnolent, arousable, smells of EtOH Skin: warm, dry, intact, no rashes or lesions, no bruising HEENT: NC/AT, PERRL, EOMI, anicteric sclera, conjunctiva without injection, external ear normal to inspection and nontender, nares patent, dry mucus membranes, dentition intact, no oropharyngeal lesions, neck supple, trachea midline, no LAD, no thyromegaly, no JVD Heart: +S1/S2, regular, no m/r/g Lungs: equal air entry bilaterally, no rales/rhonchi/wheezes Abd: +BS, soft, NT/ND, no masses/organomegaly/ascites Ext: warm, 2+ pulses in UE/LE bilaterally, no clubbing/cyanosis or edema Neuro: intoxicated, grossly non-focal Results & Data Results & Data Vital Signs (Past 12 Hours) Vital Signs Temp Pulse Pulse Resp BP BP Pulse Ox 10/17/23 05:29 68 10/17/23 04:15 67 17 96 10/17/23 04:00 66 22 161/89 H 95 10/17/23 02:00 75 17 137/79 97 10/17/23 01:16 74 10/17/23 00:50 71 19 142/87 H 92 10/17/23 00:49 90 10/17/23 00:44 36.9 C 72 16 151/86 H 90 O2 Del Method O2 Flow Rate 10/17/23 05:29 10/17/23 04:15 Nasal Cannula 2 10/17/23 04:00 Room Air 10/17/23 02:00 Nasal Cannula 3 10/17/23 01:16 10/17/23 00:50 Room Air 10/17/23 00:49 Room Air 10/17/23 00:44 Room Air Laboratory Results Laboratory Results WBC 5.28 K/ul (4.8-10.8) 10/17/23 00:51 RBC 4.77 M/uL (4.70-6.10) 10/17/23 00:51 Hgb 15.1 g/dl (14.0-18.0) 10/17/23 00:51 Hct 45.2 % (42.0-52.0) 10/17/23 00:51 MCV 94.8 fL (80.0-100.0) 10/17/23 00:51 MCH 31.7 pg (25.0-34.0) 10/17/23 00:51 MCHC 33.4 g/dL (32.0-36.0) 10/17/23 00:51 RDW Std Deviation 46.2 fL (36.4-46.3) 10/17/23 00:51 RDW Coeff of Edward 13.2 % (11.5-14.5) 10/17/23 00:51 Plt Count 198 K/uL (130-400) 10/17/23 00:51 MPV 9.5 fL (9.4-12.4) 10/17/23 00:51 Immature Gran % (Auto) 0.2 % 10/17/23 00:51 Neut % (Auto) 50.1 % 10/17/23 00:51 Lymph % (Auto) 25.8 % 10/17/23 00:51 Hickman % (Auto) 16.5 % 10/17/23 00:51 Eos % (Auto) 6.8 % 10/17/23 00:51 Baso % (Auto) 0.6 % 10/17/23 00:51 Neut # (Auto) 2.65 K/uL (1.40-6.50) 10/17/23 00:51 Lymph # (Auto) 1.36 K/uL (1.20-3.40) 10/17/23 00:51 Hickman # (Auto) 0.87 K/uL (0.11-0.59) H 10/17/23 00:51 Eos # (Auto) 0.36 K/uL (0.00-0.50) 10/17/23 00:51 Baso # (Auto) 0.03 K/uL (0.00-0.20) 10/17/23 00:51 Immature Gran # (Auto) 0.01 K/uL (0.01-0.20) 10/17/23 00:51 PT 11.2 Seconds (9.0-12.0) 10/17/23 00:51 INR 1.0 (0.9-1.1) 10/17/23 00:51 Sodium 139 mmol/L (136-145) 10/17/23 00:51 Potassium 3.9 mmol/L (3.5-5.1) 10/17/23 00:51 Chloride 108 mmol/L (98-107) H 10/17/23 00:51 Carbon Dioxide 22 mmol/L (21-32) 10/17/23 00:51 Anion Gap 9 (3-11) 10/17/23 00:51 BUN 16 mg/dl (6-23) 10/17/23 00:51 Creatinine 0.86 mg/dl (0.6-1.4) 10/17/23 00:51 Est Cr Clr Drug Dosing 78.2 ml/min 10/17/23 00:51 Est GFR ( Amer) 92.9 ml/min 10/17/23 00:51 Est GFR (Non-Af Amer) 80.2 ml/min 10/17/23 00:51 BUN/Creatinine Ratio 18.6 (10-20) 10/17/23 00:51 Glucose 116 mg/dl (70-99(Fasting)) H 10/17/23 00:51 Calcium 8.8 mg/dl (8.6-10.3) 10/17/23 00:51 Magnesium 2.0 mg/dl (1.7-2.4) 10/17/23 00:51 Total Bilirubin 0.3 mg/dl (0.2-1.0) 10/17/23 00:51 AST 22 U/L (13-39) 10/17/23 00:51 ALT 8 U/L (7-52) 10/17/23 00:51 Alkaline Phosphatase 76 U/L (34-104) 10/17/23 00:51 Total Creatine Kinase 88 U/L (30-223) 10/17/23 00:51 Troponin I High Sens 6.8 pg/ml (0-20) 10/17/23 00:51 B-Natriuretic Peptide 142 pg/ml (0-100) H 10/17/23 00:51 Total Protein 6.6 gm/dl (6.0-8.3) 10/17/23 00:51 Albumin 4.0 gm/dl (3.4-5.0) 10/17/23 00:51 Globulin 2.6 gm/dl (2.5-4.0) 10/17/23 00:51 Albumin/Globulin Ratio 1.5 (0.9-2) 10/17/23 00:51 Lipase 25 U/L (11-82) 10/17/23 00:51 Ethyl Alcohol mg/dL 157.4 mg/dl (<10.0) H 10/17/23 00:51 SARS-CoV-2 (PCR) NEGATIVE (Negative) 10/17/23 04:06 Influenza Type A (PCR) Negative (Neg) 10/17/23 04:06 Influenza Type B (PCR) Negative (Neg) 10/17/23 04:06 RSV (RT-PCR) Negative (Neg) 10/17/23 04:[address] 10/17/23 00:47 Exam(s): CT C SPINE EXAM: CT Cervical Spine Without Intravenous Contrast CLINICAL HISTORY: fall from standing; on Eliquis. TECHNIQUE: Axial computed tomography images of the cervical spine without intravenous contrast. CTDI is 26.64 mGy and DLP is 549.66 mGy-cm. Automated exposure control was utilized for the study. A dose lowering technique was utilized adhering to the principles of ALARA. COMPARISON: Plain radiographs 07/01/2020. Cranial cervical junction imaging on the CT head without contrast 09/08/2022 and MRI head 03/25/2023 FINDINGS: Vertebrae: The vertebral bodies are intact without acute osseous traumatic injury. Anterior fusion noted C5-C7. No anterolisthesis or retrolisthesis is identified with straightening of the normal cervical lordosis. 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 These lie immediately inferior to the clivus. 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 There is also fusion of the bilateral facets at C2-3 level. The facet joints are well aligned without subluxation or dislocation. Diffuse bilateral facet hypertrophic arthrosis noted. The pedicles, transverse processes and spinous processes are intact. Discs/spinal canal/neural foramina: See above. No significant osseous central canal stenosis. Minimal hypertrophic osteophyte changes, most prominent anteriorly. Soft tissues: No significant traumatic soft tissue abnormality suspected. Lung apices: The included lung apices are unremarkable. IMPRESSION: 1. No acute osseous traumatic injury or significant abnormal alignment involving the cervical spine. Incidental anterior fusion from C5-C7. 2. 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 Chronic multilevel degenerative changes incidentally noted. Electronically signed by: Leoncio Greene MD 10/17/23 02:[address] 10/17/23 00:47 Exam(s): CT HEAD Without Contrast EXAM: CT Head Without Intravenous Contrast CLINICAL HISTORY: fall from standing; on Eliquis. TECHNIQUE: Axial computed tomography images of the head/brain without intravenous contrast. CTDI is 36.43 mGy and DLP is 624.41 mGy-cm. Automated exposure control was utilized for the study. A dose lowering technique was utilized adhering to the principles of ALARA. COMPARISON: CT head without contrast dated 09/08/2022 FINDINGS: Brain: No intracranial hemorrhage. No significant mass-effect. Stable remote lacunar infarct involving the right basal ganglia. Diffuse underlying parenchymal involutional changes and extensive deep white matter hypodense presumed microvascular changes noted. Similar area of cerebellar encephalomalacia laterally on the left. Ventricles: Unremarkable. No ventriculomegaly. Bones/joints: Unremarkable. No acute fracture. Soft tissues: No significant overlying acute traumatic soft tissue abnormality identified. No radiopaque foreign body. Sinuses: Unremarkable as visualized. No acute sinusitis. Mastoid air cells: Unremarkable as visualized. No mastoid effusion. IMPRESSION: No acute intracranial process or significant alteration from the prior examination. Chronic underlying presumed age-related parenchymal involutional changes and extensive deep white matter presumed microvascular changes, not significantly altered from the previous examination. Electronically signed by: Leoncio Greene MD 10/17/23 02:[address] 10/17/23 03:57 Exam(s): CT CHEST With Contrast IV Amt: 93 ML OPTIRAY 320 EXAM: CT Chest With Intravenous Contrast CLINICAL HISTORY: Reason for exam: fall; wheezing; hypoxia. TECHNIQUE: Axial computed tomography images of the chest with intravenous contrast. CTDI is 27.79 mGy and DLP is 846.83 mGy-cm. Automated exposure control was utilized for the study. A dose lowering technique was utilized adhering to the principles of ALARA. CONTRAST: Patient received 93 ML OPTIRAY 320 of IV contrast COMPARISON: No relevant prior studies available. FINDINGS: Lungs: There is masslike region of presumed atelectasis within the lingula. Pleural space: Unremarkable. No pneumothorax. No significant effusion. Heart: Unremarkable. No cardiomegaly. No significant pericardial effusion. No significant coronary artery calcifications. Bones/joints: Degenerative change to the osseous structures, postsurgical changes to the cervical spine. No acute fracture. No dislocation. Soft tissues: Unremarkable. Vasculature: Aneurysmal dilatation ascending aorta 4.8 cm in maximal transverse dimension. Calcific atherosclerotic vascular disease is present. Lymph nodes: Unremarkable. No enlarged lymph nodes. Liver: 1.7 cm ovoid region of enhancement demonstrated segment 4A of the liver. IMPRESSION: Masslike region of presumed atelectasis lingula, follow-up to resolution. Aneurysmal dilatation ascending aorta. Lesion demonstrated within the liver, incompletely assessed it may be a vascular malformation. Additional chronic change. Electronically signed by: Tulio Mari MD 10/17/23 05:29 AM PG Care Time/CCT Total # of Minutes Spent Total Time Spent with Patient: Total time spent is greater than 50% in coordination of care (as documented) at patient's floor/unit and/or counseling patient: Coding Level of Care Code 59173 INT INP/OBS CARE 2/55MIN Diagnoses Alcohol intoxication F10.929 Ambulatory dysfunction R26.2 Acute hypoxemic respiratory failure J96.01
[2023-10-17 06:15] LABS: Appearance Urine Clear (Clear); Bilirubin Urine Negative (Negative); Blood Urine Negative (Negative); Color Urine Yellow; Glucose Urine UA Negative (Negative); Ketones Urine Negative (Negative); Leukocyte Esterase Urine Negative (Negative); Nitrite Urine Negative (Negative); Protein Urine Negative (Negative); Specific Gravity Urine 1.026 (1.000-1.030); Urobilinogen Urine Negative (Negative); pH Urine 6.5 (4.5-7.5)
[2023-10-17 06:50] LABS: Amphetamines+Metham, Urine Neg (Neg); Barbiturates, Urine Neg (Neg); Benzodiazepine, Urine Neg (Neg); Cocaine, Urine Neg (Neg); Fentanyl, Urine Neg (Neg); MDMA (Ecstacy), Urine Neg (Neg); Marijuana, Urine Neg (Neg); Methadone, Urine Neg (Neg); Opiate, Urine Neg (Neg); Phencyclidine, Urine Neg (Neg)
--- NOTE | 2023-10-17 06:57 | XRay Report ---
XR chest 1V portable CLINICAL HISTORY: found down TECHNIQUE: Single frontal radiograph of the chest was obtained. Comparison: Comparison is made to chest radiograph 09/08/2022 FINDINGS: No lines and tubes are seen. Calcified aortic knob is seen. The lungs are clear. No evidence of pleur al effusion or pneumothorax. Old healed rib fractures are seen. IMPRESSION: No acute chest disease. ACT 112: Negative or not required by law. Electronically signed by: Guero Goodson M.D. 10/17/2023 6:56 AM
[2023-10-17] MEDS ORDERED: ACETAMINOPHEN 325 MG TAB PO PRN (09:37)
[2023-10-17] MEDS ORDERED: ONDANSETRON INJ 2 MG/ML 2 ML VIAL IV PRN (09:37)
[2023-10-17] MEDS ORDERED: oxyCODONE/ACETAMINOPHEN 10-325 TAB PO PRN (09:37)
[2023-10-17] MEDS ORDERED: LORazepam 1 MG TAB PO PRN (09:37)
[2023-10-17] MEDS ORDERED: ALBUTEROL 0.5% NEB SOLN 2.5 MG/0.5 ML VIAL NEB PRN (09:37)
[2023-10-17] MEDS: ASPIRIN 81 MG ECTAB PO SCH (10:32)
[2023-10-17] MEDS: THIAMINE HCL 100 MG TAB PO SCH (10:32)
[2023-10-17] MEDS: FOLIC ACID 1 MG TAB PO SCH (10:32)
[2023-10-17] MEDS: GABAPENTIN 100 MG CAP PO SCH (10:32)
[2023-10-17] MEDS: APIXABAN 5 MG TABLET PO SCH (10:32)
[2023-10-17] MEDS: LEVOTHYROXINE SODIUM 175 MCG TABLET PO SCH (10:32)
[2023-10-17] MEDS: METOPROLOL SUCC 25MG EXT REL TAB PO SCH (10:32)
[2023-10-17] MEDS: PANTOprazole 40 MG TAB PO SCH (10:38)
[2023-10-17] MEDS: MULTI-VITAMIN INFUSION 10 ML, THIAMINE HCL 100 MG, FOLIC ACID 1 MG in SODIUM CHLORIDE 0... IV ONE (10:41)
[2023-10-17] MEDS: DULoxetine HCL 30 MG CAP PO SCH (11:56)
[2023-10-17] MEDS: DULoxetine HCL 60 MG CAP PO SCH (11:56)
--- NOTE | 2023-10-17 13:05 | Communication Note ---
Date of Service: October 17, 2023 Please refer to the H&P dictated earlier this morning for details of presentation on admission. In brief, this is an 83-year-old patient who presented to the ER this morning because he was found down. He is a chronic drinker and has issues with ataxia. PT and OT has been consulted. Patient is on an alcohol withdrawal protocol. Hypoxic on ambulation. CT chest showed atelectasis. Encourage incentive spirometry.
[2023-10-17 15:30] VITALS: RESP 18; TEMP 97.5; O2SAT 92
[2023-10-17 15:39] VITALS: BP 155/74
--- NOTE | 2023-10-17 15:49 | Discharge Summary ---
Date of Service October 17, 2023 Admission HPI Per Admitting Provider Dov Mcbride is an 83yo male with history of HTN, GERD, atrial dysrhythmia presenting from [facility] after being found down. Patient reportedly drinks daily. Has history of ataxic gait as well. Patient does not recall the events prior to arrival. He has no complaints at this time. Denies pain. In the ER he is afebrile, HD stable. Patient unable to ambulate in the ER. Became short of breath and wheezing with saturations of 86% after ambulatory trial. Admission Exam Per Admitting Provider General: patient somnolent, arousable, smells of EtOH Skin: warm, dry, intact, no rashes or lesions, no bruising HEENT: NC/AT, PERRL, EOMI, anicteric sclera, conjunctiva without injection, external ear normal to inspection and nontender, nares patent, dry mucus membranes, dentition intact, no oropharyngeal lesions, neck supple, trachea midline, no LAD, no thyromegaly, no JVD Heart: +S1/S2, regular, no m/r/g Lungs: equal air entry bilaterally, no rales/rhonchi/wheezes Abd: +BS, soft, NT/ND, no masses/organomegaly/ascites Ext: warm, 2+ pulses in UE/LE bilaterally, no clubbing/cyanosis or edema Neuro: intoxicated, grossly non-focal Principal Diagnosis Gait ataxia due to alcohol intoxication leading to fall Discharge Exam General: Awake, conversant Heart: S1, S2/regular rate and rhythm, no murmur rubs or gallops Lungs: Clear to auscultation bilaterally. Normal effort Abdomen: Soft/nontender/nondistended. No hepatosplenomegaly Extremities: No clubbing/cyanosis. No edema Behavior: Appropriate, cooperative Discharge Data Allergies Allergy/AdvReac Type Severity Reaction Status Date / Time Penicillins Allergy Severe SEVERE Verified 03/29/23 10:49 SWELLING AND HIVES Sulfa (Sulfonamide Allergy Severe SEVERE Verified 03/29/23 10:49 Antibiotics) SWELLING AND HIVES Consultations 10/17/23 04:45 ED Decision to Admit Stat Ordered Studies 10/17/23 00:47 CT cervical spine wo con Stat CT head/brain wo con Stat 10/17/23 03:57 CT chest diagnostic w con Stat Hospital Course (1) Alcohol intoxication: Patient is a chronic alcoholic and was intoxicated upon arrival. He has a history of gait ataxia related to his alcohol use Most likely his fall was related to his gait ataxia due to alcohol intoxication He is anxious to be discharged today No sign of withdrawal so far (2) Ambulatory dysfunction: Patient with history of ataxic gait in the ER. Intoxication likely adding to his unsteadiness -PT/OT evaluation complete. Cleared for discharge back (3) Acute hypoxemic respiratory failure: Hypoxic upon admission No more hypoxic CT chest showed atelectasis Incentive spirometer offered Lingula atelectasis appears masslike on the CT. A follow-up CT is recommended to ensure resolution. This will need to be pursued outpatient Plan Atrial arrhythmia -Continue Apixaban -Continue Metoprolol Mood disorder -Continue Gabapentin -Continue Cymbalta -Continue Topamax Hypothyroidism -Continue Synthroid Total Time Total Time Spent Total Time Spent (In Minutes): 35 Discharge Plan Discharge Items Patient Disposition: Home - Self-Care Reason For Visit: weakness Discharge Diagnosis: Gait ataxia due to alcohol intoxication leading to fall Activity: Resume your previous activity Non-emergency contact: Primary Care Provider Call non-emergency contact if: you have any medication questions and your symptoms worsen Follow-up/Referrals: Huey Lozada MD [Primary Care Provider] - Diet: Heart Healthy Addtl Attending Provider Instructions: Advised to follow-up with PCP in 1 week Pending Studies at Discharge: No Stand-Alone Forms: My [facility] Medications and DC Order Prescriptions: Continued Belsomra 20 mg tablet 20 mg PO HS Eliquis 5 mg tablet 5 mg PO BID gabapentin 100 mg capsule 100 mg PO BID levothyroxine 175 mcg tablet 175 mcg PO DAILY mirtazapine 30 mg tablet 30 mg PO HS ramelteon 8 mg tablet 8 mg PO HS metoprolol succinate [Toprol XL] 25 mg tablet extended release 24 hr 25 mg PO DAILY triamcinolone acetonide 0.1 % Cream 1 applic TOPICAL DAILY PRN (Reason: affected areas) esomeprazole magnesium [Nexium] 40 mg Capsule,Delayed Release(Dr/Ec) 40 mg PO Q2D cholecalciferol (vitamin D3) [Vitamin D3] 2,000 unit Tablet 2,000 unit PO DAILY gabapentin 600 mg tablet 600 mg PO HS clobetasol 0.05 % Cream 1 applic TOPICAL BID PRN (Reason: ITCHINESS) cyanocobalamin (vitamin B-12) [Vitamin B-12] 1,000 mcg Tablet 1,000 mcg PO DAILY oxycodone-acetaminophen 10-325 mg tablet 1 tab PO TID PRN (Reason: Pain) duloxetine [Cymbalta] 60 mg Capsule,Delayed Release(Dr/Ec) 60 mg PO QPM Rx Instructions: Q AFTERNOON Discharge Orders: Discharge Order (Routine); Ordered 10/17/23 Ordered By: Chloe Wallace Admission Data Admit Date/Time: 10/17/23 04:55 Attending Provider: Florecita Bhatt Admit Provider: Florecita Bhatt Primary Care Provider: Huey Lozada. Other Providers: Florecita Bhatt Coding Level of Care Code 37539 INP/OBS DISCH >30 MIN Diagnoses Alcohol intoxication F10.929 Ambulatory dysfunction R26.2 Acute hypoxemic respiratory failure J96.01
[2023-10-17 16:20] VITALS: PULSE 69
[2023-10-17] MEDS ORDERED: GABAPENTIN 600 MG TAB PO SCH (21:00)
[2023-10-17] MEDS ORDERED: TOPIRAMATE 25 MG TAB PO SCH (21:00)
[2023-10-17] MEDS ORDERED: MIRTAZAPINE TAB 15 MG TAB PO SCH (21:00)
--- NOTE | 2023-10-18 07:32 | Electrocardiogram Report ---
Test Reason : Blood Pressure : / mmHG Vent. Rate : 071 BPM Atrial Rate : 071 BPM P-R Int : 194 ms QRS Dur : 092 ms QT Int : 406 ms P-R-T Axes : 038 037 047 degrees QTc Int : 441 ms Normal sinus rhythm with sinus arrhythmia Normal ECG When compared with ECG of 08-SEP-2022 14:42, T wave inversion no longer evident in Inferior leads Confirmed by Rajendra Blackman ([id number]) on 10/18/2023 7:31:56 AM Referred By: Confirmed By:Rajendra Blackman
== END 2023-10-17 16:57 | disposition home or self-care (01) ==
LOC: SUATTDRO → 3E 00:38 → ED 00:38 → 3E 09:00

== ENCOUNTER 2024-05-05 06:47 | Inpatient (IN) ==
[2024-05-05 07:06] LABS: Base Excess VBG -2.6 mEq/L; HCO3 VBG 22 mmol/L; Oxygen Saturation VBG 92.8 %; PCO2 VBG 36 mmHg (38-50); PO2 VBG 62 mmHg; pH VBG 7.39 (7.36-7.41)
[2024-05-05 07:16] LABS: Basophils # (auto) 0.03 K/uL (0.00-0.20); Basophils % (auto) 0.3 %; Eosinophils # (auto) 0.06 K/uL (0.00-0.50); Eosinophils % (auto) 0.6 %; Hematocrit (blood only) 42.3 % (42.0-52.0); Hemoglobin 14.2 g/dl (14.0-18.0); Immature Granulocytes # (auto) 0.04 K/uL (0.01-0.20); Immature Granulocytes % (auto) 0.4 %; Lymphocytes # (auto) 0.51 K/uL (1.20-3.40); Lymphocytes % (auto) 5.3 %; Mean Corpuscular Hemoglobin 31.3 pg (25.0-34.0); Mean Corpuscular Hgb Conc 33.6 g/dL (32.0-36.0); Mean Corpuscular Volume 93.4 fL (80.0-100.0); Mean Platelet Volume 9.6 fL (9.4-12.4); Monocytes # (auto) 0.94 K/uL (0.11-0.59); Monocytes % (auto) 9.7 %; Neutrophils # (auto) 8.13 K/uL (1.40-6.50); Neutrophils % (auto) 83.7 %; Platelet Count 177 K/uL (130-400); RDW Coefficient of Variation 12.8 % (11.5-14.5); Red Blood Count 4.53 M/uL (4.70-6.10); White Blood Count 9.71 K/ul (4.8-10.8)
--- NOTE | 2024-05-05 07:17 | Emergency Department Note ---
Impression & Plan Acute hypoxemic respiratory failure, Acute dyspnea, RSV infection ED Provider Note HISTORY OF PRESENT ILLNESS: Patient is an 83-year-old male presenting with shortness of breath. Patient presents via ambulance from [facility]. He reportedly tested positive for RSV and COVID yesterday. He has been having increasing shortness of breath over the last 3 days. He does not wear any supplemental oxygen at baseline. Patient reportedly seemed slightly more confused than his normal and was very short of breath this morning, prompting them to call 911. Patient reportedly was hypoxic for EMS and started on supplemental oxygen and given a DuoNeb treatment prehospital. He reportedly was very tremulous at home, which is also abnormal for him. On arrival to the ER, the patient reports he has been coughing up a clear sputum over the last few days. Denies any notable fevers at home that he knows of. He states that he actually feels better this morning than he did the last 2 days. He denies any chest pain or shortness of breath. He does not wear any supplemental oxygen at baseline. Denies any DVT or PE history. He denies any abdominal pain, nausea or vomiting. He is on aspirin and Eliquis daily. ROS: as above PHYSICAL EXAM: Constitutional: Patient appears in no acute distress. HENT: Head: Normocephalic and atraumatic. Eyes: EOMI, PERRL Mouth/Throat: Mucous membranes moist. Neck: Trachea midline. Neck supple. Cardiovascular: Tachycardic with regular rhythm. No murmurs, rubs or gallops. Intact distal pulses. Pulmonary/Chest: Patient is tachypneic and conversationally dyspneic. Diffuse wheezes in the bilateral lung pugh. Abdominal: Abdomen soft, no tenderness, rebound or guarding. Musculoskeletal: No edema, tenderness or deformity noted. Skin: Warm and dry. No rash, erythema, pallor or cyanosis Psychiatric: Appropriate mood and affect for situation. Neurological: Alert and keenly responsive. CN II-XII grossly intact, moving all extremities equally and fully. Patient noted to have tremors in his left upper extremity. MDM: - Vitals signs showed fever and tachycardia. - History obtained via patient. History as above. - Chronic conditions affecting care: depression; hypothyroidism; GERD; HTN; atrial dysrhythmia - Differential diagnoses include, but are not limited to: Congestive heart failure; acute coronary syndrome; COPD/asthma exacerbation; pulmonary edema; pulmonary embolism; pneumonia; pneumothorax; viral syndrome - Order placed for continuous cardiac monitoring. At this time, monitor showed rate of 103 bpm with normal sinus rhythm, per my interpretation. - External medical records reviewed. Discharge summary dated 10/17/2023 was reviewed. Patient was admitted at that time for gait ataxia due to alcohol intoxication that led to his fall. - EKG interpreted by myself showed normal sinus rhythm. Rate 103 bpm. QT 332. No acute ischemic changes. - Laboratory workup interpreted by myself showed normal WBC; normal PT/INR; stable electrolytes; normal troponin; elevated BNP (144); negative ethanol - VBG normal - Viral respiratory panel positive for RSV - CXR negative for pneumonia, per my interpretation - Patient given an hour long duoneb treatment in ER. Given 80 mg IV solumedrol. [id number] IV tylenol for fever. - Given patient's new oxygen requirement, will admit to hospitalist service. - Discussion was had with medical case manager about patient's case and need for admission - Hospitalist, Dr. Sorensen, consulted for admission. Requested CT PE be obtained given his hypoxia. - CT PE negative for PE. Noted to have scattered groundglass opacities within the lung pugh favoring a mild infectious process. - [facility] ASSESSMENT AND PLAN: Diagnosis: acute hypoxia; acute dyspnea; RSV infection Plan: admit Past Med/Surg History Problem List (Updated 05/05/24 @ 10:53 by Jessi Chavez MD) RSV infection (Acute) Acute dyspnea (Acute) Acute hypoxemic respiratory failure (Acute) Alcohol intoxication (Acute) Elevated brain natriuretic peptide (BNP) level (Acute) Generalized weakness (Acute) Ambulatory dysfunction (Acute) Acute hypoxemic respiratory failure (Acute) Fall from standing (Acute) Vitamin D deficiency Numbness COVID-19 (Acute) COVID (Acute) Weakness (Acute) Hypoxic (Acute) Malaise and fatigue COVID Mixed conductive and sensorineural hearing loss of right ear with restricted hearing of left ear Sensorineural hearing loss (SNHL) Impacted cerumen of both ears History of alcoholism Encounter for pre-operative examination Hearing deficit HEARING AIDS Prostate cancer PROSTATE S/P PROSTATECTOMY; NO CHEMO OR RADIATION Hematoma (Acute 07/24/13) Medical History Atrial dysrhythmia Hx of urinary frequency Hypothyroidism Depression History of cervical fracture C5-C6 CERVICAL FRACTURE 2014 TREATED CONSERVATIVELY Hypertension Hypothyroidism GERD (gastroesophageal reflux disease) CONTROLLED Surgical History History of hernia repair History of esophagogastroduodenoscopy (EGD) 01/14/16= MAC SEDATION AT [facility] Hx of shoulder surgery right Hx of arthroscopic knee surgery ? left Hx of prostatectomy History of colonoscopy Social History Smoking Status: Never smoker Tobacco Type: Cigarettes Cigarettes Per Day: 3; Second Hand Exposure: No; Do You Dip or Chew Tobacco: No; Hx Alcohol Use: Yes Alcohol type: hard liquor Hx Substance Use: No Preferred Language: Croatian Communication Ability: Effective Hot Header Operator Required: No Beliefs That Will Affect Care: None marital status: Single Current Living Situation: [facility] Current Living Situation Comment: [place] current occupational status: retired Feels Safe at Home: Yes Assistive Devices: Denture - Upper, Denture - Lower, Glasses, Hearing Aid - Bilateral and Walker Allergies Allergies Allergy/AdvReac Type Severity Reaction Status Date / Time Penicillins Allergy Severe SEVERE Verified 11/17/23 02:25 SWELLING AND HIVES Sulfa (Sulfonamide Allergy Severe SEVERE Verified 11/17/23 02:25 Antibiotics) SWELLING AND HIVES Home Meds Home Medications Medication Instructions Recorded Confirmed cholecalciferol (vitamin D3) 50 2,000 unit PO QAM 04/12/18 05/05/24 mcg (2,000 unit) tablet (Vitamin D3) esomeprazole magnesium 40 mg 40 mg PO Q2D 04/12/18 05/05/24 capsule,delayed release (Nexium) triamcinolone acetonide 0.1 % 1 applic topical DAILY PRN 04/12/18 05/05/24 topical cream affected areas metoprolol succinate 25 mg 25 mg PO QAM 01/17/21 05/05/24 tablet,extended release 24 hr (Toprol XL) clobetasol 0.05 % topical cream 1 applic topical BID PRN ITCHINESS 08/28/22 05/05/24 cyanocobalamin (vitamin B-12) 1,000 mcg PO QAM 08/28/22 05/05/24 1,000 mcg tablet (Vitamin B-12) duloxetine 60 mg capsule,delayed 60 mg PO QAM 08/28/22 05/05/24 release (Cymbalta) gabapentin 600 mg tablet 600 mg PO HS 08/28/22 05/05/24 apixaban 5 mg tablet (Eliquis) 5 mg PO BID 03/29/23 05/05/24 gabapentin 100 mg capsule 100 mg PO BID 03/29/23 05/05/24 levothyroxine 175 mcg tablet 175 mcg PO QAM 03/29/23 05/05/24 mirtazapine 30 mg tablet 30 mg PO HS 03/29/23 05/05/24 ramelteon 8 mg tablet 8 mg PO HS PRN Insomnia 03/29/23 05/05/24 albuterol sulfate 2.5 mg/3 mL 2.5 mg inhalation Q4H PRN 11/17/23 05/05/24 (0.083 %) solution for nebulization COPD/SHORT OF BREATH aspirin 81 mg chewable tablet 81 mg PO DAILY 11/17/23 05/05/24 budesonide 0.5 mg/2 mL suspension 0.5 mg inhalation BID 11/17/23 05/05/24 for nebulization (Pulmicort) candesartan 16 mg tablet 16 mg PO DAILY 11/17/23 05/05/24 duloxetine 30 mg capsule,delayed 30 mg PO .AFTERNOON 11/17/23 05/05/24 release fluticasone furoate 100 1 inh inhalation QAM 11/17/23 05/05/24 mcg-vilanterol 25 mcg/dose inhalation powder (Breo Ellipta) furosemide 20 mg tablet 40 mg PO QAM 11/17/23 05/05/24 oxycodone-acetaminophen 7.5 mg-325 1 tab PO TID 11/17/23 05/05/24 mg tablet (Percocet) potassium chloride 10 mEq 10 meq PO QAM 11/17/23 05/05/24 tablet,extended release(part/cryst) topiramate 50 mg tablet 50 mg PO BID 11/17/23 05/05/24 vitamin B complex 1 tab PO QAM 11/17/23 05/05/24 Afrin (oxymetazoline) 3 spray intranasal BID PRN nose 05/05/24 05/05/24 bleed albuterol sulfate 2.5 mg/3 mL 2.5 mg inhalation BID 05/05/24 05/05/24 (0.083 %) solution for nebulization mupirocin 2 % topical ointment 1 applic topical DIRECTED PRN 05/05/24 05/05/24 nose bleed Results & Data (ED) Vital Signs Vital Signs - 24 hr 05/05/24 06:55 05/05/24 06:55 05/05/24 07:03 Temperature 38.4 C H Temperature Source Oral Pulse Rate 98 H 99 H Pulse Rate [Apical] Pulse Rate from SpO2 Sensor 100 H Respiratory Rate 20 31 H Respiratory Effort / Characteristics Blood Pressure 122/77 122/77 Blood Pressure Mean 92 92 Pulse Oximetry 94 91 Oxygen Delivery Method Nasal Cannula Nasal Cannula Oxygen Flow Rate 6 6 Sepsis Recent Fever Within 48 Hours Yes Sepsis New/Unexplained Change in Mental Status No Sepsis Action Taken by Nursing No Action Required 05/05/24 07:09 05/05/24 07:21 05/05/24 08:03 Temperature Temperature Source Pulse Rate 106 H 94 H 94 H Pulse Rate [Apical] Pulse Rate from SpO2 Sensor 96 H Respiratory Rate 20 27 H Respiratory Effort / Characteristics Blood Pressure 132/79 Blood Pressure Mean 96 Pulse Oximetry 92 94 Oxygen Delivery Method Nasal Cannula Nasal Cannula Oxygen Flow Rate 6 4 Sepsis Recent Fever Within 48 Hours Sepsis New/Unexplained Change in Mental Status Sepsis Action Taken by Nursing 05/05/24 08:13 05/05/24 08:23 05/05/24 09:22 Temperature 37.3 C Temperature Source Oral Pulse Rate Pulse Rate [Apical] 97 H 104 H Pulse Rate from SpO2 Sensor Respiratory Rate 29 H 27 H Respiratory Effort / Characteristics Spontaneous Short of Breath Spontaneous Blood Pressure Blood Pressure Mean Pulse Oximetry 89 L 94 Oxygen Delivery Method Room Air Nasal Cannula Oxygen Flow Rate 4.5 Sepsis Recent Fever Within 48 Hours Sepsis New/Unexplained Change in Mental Status Sepsis Action Taken by Nursing 05/05/24 09:26 05/05/24 10:00 05/05/24 11:03 Temperature Temperature Source Pulse Rate 115 H 98 H 84 Pulse Rate [Apical] Pulse Rate from SpO2 Sensor 85 Respiratory Rate 20 19 21 Respiratory Effort / Characteristics Blood Pressure 124/83 104/66 124/73 Blood Pressure Mean 84 79 90 Pulse Oximetry 94 94 93 Oxygen Delivery Method Nasal Cannula Nasal Cannula Nasal Cannula Oxygen Flow Rate 4 4 4 Sepsis Recent Fever Within 48 Hours Sepsis New/Unexplained Change in Mental Status Sepsis Action Taken by Nursing 05/05/24 11:13 Temperature Temperature Source Pulse Rate 87 Pulse Rate [Apical] Pulse Rate from SpO2 Sensor Respiratory Rate Respiratory Effort / Characteristics Blood Pressure Blood Pressure Mean Pulse Oximetry Oxygen Delivery Method Oxygen Flow Rate Sepsis Recent Fever Within 48 Hours Sepsis New/Unexplained Change in Mental Status Sepsis Action Taken by Nursing Laboratory Data 05/05/24 06:49 05/05/24 06:49 Lab Results 05/05/24 05/05/24 05/05/24 Range/Units 06:49 06:59 07:38 WBC 9.71 (4.8-10.8) K/ul RBC 4.53 L (4.70-6.10) M/uL Hgb 14.2 (14.0-18.0) g/dl Hct 42.3 (42.0-52.0) % MCV 93.4 (80.0-100.0) fL MCH 31.3 (25.0-34.0) pg MCHC 33.6 (32.0-36.0) g/dL RDW Std Deviation 44.0 (36.4-46.3) fL RDW Coeff of Edward 12.8 (11.5-14.5) % Plt Count 177 (130-400) K/uL MPV 9.6 (9.4-12.4) fL Immature Gran % (Auto) 0.4 % Neut % (Auto) 83.7 % Lymph % (Auto) 5.3 % Ransom % (Auto) 9.7 % Eos % (Auto) 0.6 % Baso % (Auto) 0.3 % Neut # (Auto) 8.13 H (1.40-6.50) K/uL Lymph # (Auto) 0.51 L (1.20-3.40) K/uL Ransom # (Auto) 0.94 H (0.11-0.59) K/uL Eos # (Auto) 0.06 (0.00-0.50) K/uL Baso # (Auto) 0.03 (0.00-0.20) K/uL Immature Gran # (Auto) 0.04 (0.01-0.20) K/uL PT 11.9 (9.0-12.0) Seconds INR 1.1 (0.9-1.1) VBG pH 7.39 (7.36-7.41) VBG pCO2 36 L (38-50) mmHg VBG pO2 62 mmHg VBG HCO3 22 mmol/L VBG O2 Saturation 92.8 % VBG Base Excess -2.6 mEq/L Sodium 141 (136-145) mmol/L Potassium 4.1 (3.5-5.1) mmol/L Chloride 111 H (98-107) mmol/L Carbon Dioxide 22 (21-32) mmol/L Anion Gap 8 (3-11) BUN 21 (6-23) mg/dl Creatinine 1.03 (0.6-1.4) mg/dl Est Cr Clr Drug Dosing 66.6 ml/min eGFR 72.08 BUN/Creatinine Ratio 20.4 H (10-20) Glucose 166 H (70-99(Fasting)) mg/dl Calcium 9.0 (8.6-10.3) mg/dl Magnesium 2.0 (1.7-2.4) mg/dl Total Bilirubin 0.6 (0.2-1.0) mg/dl AST 20 (13-39) U/L ALT 9 (7-52) U/L Alkaline Phosphatase 66 (34-104) U/L Troponin I High Sens 8.6 (0-20) pg/ml B-Natriuretic Peptide 144 H (0-100) pg/ml Total Protein 6.7 (6.0-8.3) gm/dl Albumin 4.0 (3.4-5.0) gm/dl Globulin 2.7 (2.5-4.0) gm/dl Albumin/Globulin Ratio 1.5 (0.9-2) Ethyl Alcohol mg/dL < 10.0 (<10.0) mg/dl Adenovirus (PCR) (NotDetected) B. pertussis DNA (PCR) (NotDetected) B.parapertussis DNA PCR (NotDetected) C. pneumoniae DNA (PCR) (NotDetected) Coronavirus OC43 (PCR) (NotDetected) Coronavirus HKU1 (PCR) (NotDetected) Coronavirus 229E (PCR) (NotDetected) SARS-CoV-2 (PCR) (NotDetected) Coronavirus NL63 (PCR) (NotDetected) Human Metapneumovir PCR (NotDetected) Influenza Type A (PCR) (NotDetected) Influenza Type B (PCR) (NotDetected) M. pneumoniae (PCR) (NotDetected) Parainfluenza 1 (PCR) (NotDetected) Parainfluenza 2 (PCR) (NotDetected) Parainfluenza 3 (PCR) (NotDetected) Parainfluenza 4 (PCR) (NotDetected) RSV (PCR) (NotDetected) Entero/Rhino (PCR) (NotDetected) 05/05/24 Range/Units 08:00 WBC (4.8-10.8) K/ul RBC (4.70-6.10) M/uL Hgb (14.0-18.0) g/dl Hct (42.0-52.0) % MCV (80.0-100.0) fL MCH (25.0-34.0) pg MCHC (32.0-36.0) g/dL RDW Std Deviation (36.4-46.3) fL RDW Coeff of Edward (11.5-14.5) % Plt Count (130-400) K/uL MPV (9.4-12.4) fL Immature Gran % (Auto) % Neut % (Auto) % Lymph % (Auto) % Ransom % (Auto) % Eos % (Auto) % Baso % (Auto) % Neut # (Auto) (1.40-6.50) K/uL Lymph # (Auto) (1.20-3.40) K/uL Ransom # (Auto) (0.11-0.59) K/uL Eos # (Auto) (0.00-0.50) K/uL Baso # (Auto) (0.00-0.20) K/uL Immature Gran # (Auto) (0.01-0.20) K/uL PT (9.0-12.0) Seconds INR (0.9-1.1) VBG pH (7.36-7.41) VBG pCO2 (38-50) mmHg VBG pO2 mmHg VBG HCO3 mmol/L VBG O2 Saturation % VBG Base Excess mEq/L Sodium (136-145) mmol/L Potassium (3.5-5.1) mmol/L Chloride (98-107) mmol/L Carbon Dioxide (21-32) mmol/L Anion Gap (3-11) BUN (6-23) mg/dl Creatinine (0.6-1.4) mg/dl Est Cr Clr Drug Dosing ml/min eGFR BUN/Creatinine Ratio (10-20) Glucose (70-99(Fasting)) mg/dl Calcium (8.6-10.3) mg/dl Magnesium (1.7-2.4) mg/dl Total Bilirubin (0.2-1.0) mg/dl AST (13-39) U/L ALT (7-52) U/L Alkaline Phosphatase (34-104) U/L Troponin I High Sens (0-20) pg/ml B-Natriuretic Peptide (0-100) pg/ml Total Protein (6.0-8.3) gm/dl Albumin (3.4-5.0) gm/dl Globulin (2.5-4.0) gm/dl Albumin/Globulin Ratio (0.9-2) Ethyl Alcohol mg/dL (<10.0) mg/dl Adenovirus (PCR) Not Detected (NotDetected) B. pertussis DNA (PCR) Not Detected (NotDetected) B.parapertussis DNA PCR Not Detected (NotDetected) C. pneumoniae DNA (PCR) Not Detected (NotDetected) Coronavirus OC43 (PCR) Not Detected (NotDetected) Coronavirus HKU1 (PCR) Not Detected (NotDetected) Coronavirus 229E (PCR) Not Detected (NotDetected) SARS-CoV-2 (PCR) Not Detected (NotDetected) Coronavirus NL63 (PCR) Not Detected (NotDetected) Human Metapneumovir PCR Not Detected (NotDetected) Influenza Type A (PCR) Not Detected (NotDetected) Influenza Type B (PCR) Not Detected (NotDetected) M. pneumoniae (PCR) Not Detected (NotDetected) Parainfluenza 1 (PCR) Not Detected (NotDetected) Parainfluenza 2 (PCR) Not Detected (NotDetected) Parainfluenza 3 (PCR) Not Detected (NotDetected) Parainfluenza 4 (PCR) Not Detected (NotDetected) RSV (PCR) DETECTED A (NotDetected) Entero/Rhino (PCR) Not Detected (NotDetected) Administered Medications Levofloxacin/Dextrose (Levaquin/D5w) 750 mg in 150 mls @ 100 mls/hr IV NOW STA Stop: 05/05/24 12:09 Last Admin: 05/05/24 10:49 Dose: 100 mls/hr Documented By: JUSTINE Discontinued Medications Albuterol (Albut/Ipratrop 3mg/0.5mg Neb 3 Ml Vial) 12 ml NEB ONE ONE; Protocol Stop: 05/05/24 08:09 Last Admin: 05/05/24 08:22 Dose: 12 ml Documented By: [id number] Acetaminophen (Ofirmev) 1,000 mg in 100 mls @ 400 mls/hr IV NOW STA Stop: 05/05/24 08:49 Last Infusion: 05/05/24 10:01 Dose: Infused Documented By: Admin: 05/05/24 09:22 Dose: 400 mls/hr Documented By: JUSTINE Ioversol (Optiray 320 125ml) 118 ml IV ONCE ONE Stop: 05/05/24 10:45 Last Admin: 05/05/24 10:46 Dose: 118 ml Documented By: CHRISTINE Methylprednisolone (Methylprednisolone 125 Mg/2 Ml Vial) 80 mg IV NOW STA Stop: 05/05/24 09:43 Last Admin: 05/05/24 10:00 Dose: 80 mg Documented By: JUSTINE Imaging Data Radiologist's Impression: Chest X-Ray 05/05/24 06:50 EXAM: XR chest 1V portable CLINICAL HISTORY: SOB. TECHNIQUE: X-ray of the chest, AP view portable. COMPARISON: None FINDINGS: Patient is rotated during exposure. Bilateral basal parenchymal bands. Obscured right costophrenic angle. Radiographic examination of the chest demonstrates a clear rest of the lungs. No definite consolidation was identified. Normal configuration of the mediastinum apart from the prominent aortic arch, likely age-related. The segun are normal in size and position. The cardiac size appears borderline normal. Old healed traumatic changes were noted in the right 7th, left 5th, and 6th ribs .The bony thorax is otherwise unremarkable. The left costophrenic angle is clear. IMPRESSION: 1. Bilateral few healed rib fractures. 2. No definite consolidation or pulmonary infection was identified. Electronically signed by Pam Katz 05-05-2024 08:10 AM Chest CTA 05/05/24 10:00 CT ANGIOGRAPHY OF THE CHEST, PULMONARY EMBOLUS PROTOCOL CLINICAL HISTORY: Shortness of breath. Evaluate for pulmonary embolus. COMPARISON STUDY: Chest CT October 17, 2023. Chest radiograph May 05, 2024. TECHNIQUE: Following IV administration of 118 mL of Optiray, helical axial images of the chest were obtained utilizing the pulmonary embolus protocol. Maximal intensity projections and sagittal and coronal reformats were viewed on an independent 3D workstation. IV contrast was administered without complication. Automated exposure control was utilized for the study. A dose lowering technique was utilized adhering to the principles of ALARA. CT DOSE: 787.68 mGy.cm FINDINGS: No pulmonary emboli are identified although exam mildly compromised by respiratory motion. There is no thoracic aortic dissection. Dilatation of the ascending aorta measuring 4.9 cm at the level of the main pulmonary artery is unchanged. The heart is moderately enlarged. Extensive coronary artery calcification. There is no pericardial effusion. No pneumothorax or pleural effusion is present. Annular density favors atelectasis. There are scattered ground glass opacities within the lungs. Moderate bilateral lower lobe bronchial wall thickening is present with mild mucus plugging. There is no thoracic lymphadenopathy. There are old bilateral rib fractures as well as an old, healed sternal fracture. Ill-defined fat-containing bilateral intrascapular chest wall masses are unchanged since prior CT. These are consistent with elastofibromas. IMPRESSION: 1. No pulmonary emboli identified although exam mildly compromised by respiratory motion. 2. Scattered groundglass opacities within the lungs which favor a mild infectious process. Lingular density suggestive of atelectasis. 3. Stable aneurysmal dilatation of the ascending aorta measuring 4.9 cm. No thoracic aortic dissection. ACT 112: Negative or not required by law. Electronically signed by: Elliot Drew M.D. 05/05/2024 11:19 AM Discharge Plan Visit Data Chief Complaint: Shortness of Breath/Dyspnea Stated Complaint: SHORTNESS OF BREATH, COVID AND RSV + ED Provider: Jessi Chavez Discharge Problem: Acute hypoxemic respiratory failure, Acute dyspnea, RSV infection Forms Stand Alone Forms: [facility] Prescriptions Prescriptions: No Action Eliquis 5 mg tablet 5 mg PO BID gabapentin 100 mg capsule 100 mg PO BID levothyroxine 175 mcg tablet 175 mcg PO QAM mirtazapine 30 mg tablet 30 mg PO HS ramelteon 8 mg tablet 8 mg PO HS PRN (Reason: Insomnia) metoprolol succinate [Toprol XL] 25 mg tablet extended release 24 hr 25 mg PO QAM triamcinolone acetonide 0.1 % Cream 1 applic TOPICAL DAILY PRN (Reason: affected areas) esomeprazole magnesium [Nexium] 40 mg Capsule,Delayed Release(Dr/Ec) 40 mg PO Q2D cholecalciferol (vitamin D3) [Vitamin D3] 2,000 unit Tablet 2,000 unit PO QAM gabapentin 600 mg tablet 600 mg PO HS clobetasol 0.05 % Cream 1 applic TOPICAL BID PRN (Reason: ITCHINESS) cyanocobalamin (vitamin B-12) [Vitamin B-12] 1,000 mcg Tablet 1,000 mcg PO QAM duloxetine [Cymbalta] 60 mg Capsule,Delayed Release(Dr/Ec) 60 mg PO QAM albuterol sulfate 2.5 mg /3 mL (0.083 %) Solution For Nebulization 2.5 mg INHALATION Q4H PRN (Reason: COPD/SHORT OF BREATH) candesartan 16 mg tablet 16 mg PO DAILY budesonide [Pulmicort] 0.5 mg/2 mL Suspension For Nebulization 0.5 mg INHALATION BID aspirin 81 mg Tablet,Chewable 81 mg PO DAILY vitamin B complex Tablet 1 tab PO QAM furosemide 20 mg tablet 40 mg PO QAM oxycodone-acetaminophen [Percocet] 7.5-325 mg Tablet 1 tab PO TID MDD 3 GRAMS APAP/24 HOURS potassium chloride 10 mEq tablet,ER particles/crystals 10 meq PO QAM topiramate 50 mg tablet 50 mg PO BID Rx Instructions: START 11/16/23 FOR 8 DAY, THEN BEGIN 50 MG BID ON 11/24/23. duloxetine 30 mg capsule,delayed release(DR/EC) 30 mg PO .AFTERNOON Rx Instructions: AFTERNOON fluticasone furoate-vilanterol [Breo Ellipta] 100-25 mcg/dose Blister With Device 1 inh INHALATION QAM Afrin (oxymetazoline) 3 spray intranasal BID PRN (Reason: nose bleed) Rx Instructions: if bleeding does not stop in 20-30 mins needs ER. albuterol sulfate 2.5 mg /3 mL (0.083 %) Solution For Nebulization 2.5 mg inhalation BID mupirocin 2 % Ointment 1 applic TOPICAL DIRECTED PRN (Reason: nose bleed) Referrals Referrals: Huey Lozada MD [Outside Practitioners] -
[2024-05-05 07:28] LABS: Albumin Globulin Ratio 1.5 (0.9-2); BUN Creatinine Ratio 20.4 (10-20); Bilirubin,Total 0.6 mg/dl (0.2-1.0); Creatinine Clr Calc Pharmacy 66.6 ml/min; Globulin 2.7 gm/dl (2.5-4.0); Potassium 4.1 mmol/L (3.5-5.1); Total Protein 6.7 gm/dl (6.0-8.3)
[2024-05-05 07:35] LABS: Troponin I High Sensitivity 8.6 pg/ml (0-20)
[2024-05-05 07:44] LABS: INR 1.1 (0.9-1.1); Prothrombin Time 11.9 Seconds (9.0-12.0)
--- NOTE | 2024-05-05 08:10 | XRay Report ---
EXAM: XR chest 1V portable CLINICAL HISTORY: SOB. TECHNIQUE: X-ray of the chest, AP view portable. COMPARISON: None FINDINGS: Patient is rotated during exposure. Bilateral basal parenchymal bands. Obscured right costophrenic angle. Radiographic examination of the chest demonstrates a clear rest of the lungs. No definite consolidation was identified. Normal configuration of the mediastinum apart from the prominent aortic arch, likely age-related. The segun are normal in size and position. The cardiac size appears borderline normal. Old healed traumatic changes were noted in the right 7th, left 5th, and 6th ribs .The bony thorax is otherwise unremarkable. The left costophrenic angle is clear. IMPRESSION: 1. Bilateral few healed rib fractures. 2. No definite consolidation or pulmonary infection was identified. Electronically signed by Pam Katz 05-05-2024 08:10 AM
[2024-05-05] MEDS: ALBUT/IPRATROP 3MG/0.5MG NEB 3 ML VIAL NEB ONE (08:22)
[2024-05-05 09:17] LABS: Adenovirus PCR Not Detected (NotDetected); Bordetella parapertussis PCR Not Detected (NotDetected); Bordetella pertussis PCR Not Detected (NotDetected); Chlamydia pneumoniae PCR Not Detected (NotDetected); Coronavirus 229E PCR Not Detected (NotDetected); Coronavirus CoV-2 (COVID19)PCR Not Detected (NotDetected); Coronavirus HKU1 PCR Not Detected (NotDetected); Coronavirus NL63 PCR Not Detected (NotDetected); Coronavirus OC43PCR Not Detected (NotDetected); Human Metapneumovirus PCR Not Detected (NotDetected); Influenza A PCR Not Detected (NotDetected); Influenza B PCR Not Detected (NotDetected); Mycoplasma pneumoniae PCR Not Detected (NotDetected); Parainfluenza Virus 1 PCR Not Detected (NotDetected); Parainfluenza Virus 2 PCR Not Detected (NotDetected); Parainfluenza Virus 3 PCR Not Detected (NotDetected); Parainfluenza Virus 4 PCR Not Detected (NotDetected); Respiratory Syncytial VirusPCR DETECTED (NotDetected); Rhinovirus/Enterovirus PCR Not Detected (NotDetected)
[2024-05-05] MEDS: ACETAMINOPHEN 1,000 MG/100 ML VIAL IV STA (09:22)
[2024-05-05] MEDS: methylPREDNISolone 125 MG/2 ML VIAL IV STA (10:00)
[2024-05-05] MEDS: OPTIRAY 320 125ml IV ONE (10:46)
[2024-05-05] MEDS: levoFLOXacin/D5W 750 MG/150 ML BAG IV STA (10:49)
--- NOTE | 2024-05-05 11:20 | CT Scan Report ---
CT ANGIOGRAPHY OF THE CHEST, PULMONARY EMBOLUS PROTOCOL CLINICAL HISTORY: Shortness of breath. Evaluate for pulmonary embolus. COMPARISON STUDY: Chest CT October 17, 2023. Chest radiograph May 05, 2024. TECHNIQUE: Following IV administration of 118 mL of Optiray, helical axial images of the chest were o btained utilizing the pulmonary embolus protocol. Maximal intensity projections and sagittal and cor onal reformats were viewed on an independent 3D workstation. IV contrast was administered without co mplication. Automated exposure control was utilized for the study. A dose lowering technique was ut ilized adhering to the principles of ALARA. CT DOSE: 787.68 mGy.cm FINDINGS: No pulmonary emboli are identified although exam mildly compromised by respiratory motion. There is no thoracic aortic dissection. Dilatation of the ascending aorta measuring 4.9 cm at the le sarah of the main pulmonary artery is unchanged. The heart is moderately enlarged. Extensive coronary a rtery calcification. There is no pericardial effusion. No pneumothorax or pleural effusion is present . Annular density favors atelectasis. There are scattered ground glass opacities within the lungs. Mo derate bilateral lower lobe bronchial wall thickening is present with mild mucus plugging. There is n o thoracic lymphadenopathy. There are old bilateral rib fractures as well as an old, healed sternal f racture. Ill-defined fat-containing bilateral intrascapular chest wall masses are unchanged since rhonda or CT. These are consistent with elastofibromas. IMPRESSION: 1. No pulmonary emboli identified although exam mildly compromised by respiratory motion. 2. Scattered groundglass opacities within the lungs which favor a mild infectious process. Lingular d ensity suggestive of atelectasis. 3. Stable aneurysmal dilatation of the ascending aorta measuring 4.9 cm. No thoracic aortic dissectio n. ACT 112: Negative or not required by law. Electronically signed by: Elliot Drew M.D. 05/05/2024 11:19 AM
--- NOTE | 2024-05-05 11:57 | History & Physical Report ---
Date of Service May 05, 2024 Assessment & Plan (1) Acute bronchitis: Plan: Continue intravenous Levaquin, day 1. Obtain sputum culture if sputum is produced. (2) COPD exacerbation: Plan: Treat underlying bronchitis. Parenteral steroid therapy. Scheduled nebulizer treatments. (3) Acute on chronic hypoxic respiratory failure: Plan: Oxygen per nasal cannula to maintain saturation greater than 90%. Wean to chronic oxygen usage (4) Essential hypertension: Plan: Stable. Continue current medical (5) Opioid dependence: Plan: Stable. Continue Percocet at usual dosages (6) Primary hypothyroidism: Plan: Stable. Continue current thyroid replacement Plan Anticipate eventual discharge back to his home within the next 2 to 3 days History of Present Illness Chief Complaint: Productive cough, wheezing, shortness of breath Primary Care Provider: [facility] 83-year-old white male with COPD and chronic respiratory failure on home oxygen. He is unable to tell me how much oxygen he uses however. He has had worsening shortness of breath with productive cough and requiring higher than usual amount of oxygen. Chest x-ray is clear on admission and chest CTA negative for PE. On examination he has evidence of asthmatic bronchitis with diffuse wheezing and exacerbation of COPD. He has acute on chronic respiratory failure as evidenced by higher than usual requirements for oxygen per nasal cannula. He denies hemoptysis. No documented fever. Allergies Allergy/AdvReac Type Severity Reaction Status Date / Time Penicillins Allergy Severe SEVERE Verified 11/17/23 02:25 SWELLING AND HIVES Sulfa (Sulfonamide Allergy Severe SEVERE Verified 11/17/23 02:25 Antibiotics) SWELLING AND HIVES Home Medications Medication Instructions Recorded Confirmed Type cholecalciferol (vitamin D3) 50 2,000 unit PO QAM 04/12/18 05/05/24 History mcg (2,000 unit) tablet (Vitamin D3) esomeprazole magnesium 40 mg 40 mg PO Q2D 04/12/18 05/05/24 History capsule,delayed release (Nexium) triamcinolone acetonide 0.1 % 1 applic topical DAILY PRN 04/12/18 05/05/24 History topical cream affected areas metoprolol succinate 25 mg 25 mg PO QAM 01/17/21 05/05/24 History tablet,extended release 24 hr (Toprol XL) clobetasol 0.05 % topical cream 1 applic topical BID PRN ITCHINESS 08/28/22 05/05/24 History cyanocobalamin (vitamin B-12) 1,000 mcg PO QAM 08/28/22 05/05/24 History 1,000 mcg tablet (Vitamin B-12) duloxetine 60 mg capsule,delayed 60 mg PO QAM 08/28/22 05/05/24 History release (Cymbalta) gabapentin 600 mg tablet 600 mg PO HS 08/28/22 05/05/24 History apixaban 5 mg tablet (Eliquis) 5 mg PO BID 03/29/23 05/05/24 History gabapentin 100 mg capsule 100 mg PO BID 03/29/23 05/05/24 History levothyroxine 175 mcg tablet 175 mcg PO QAM 03/29/23 05/05/24 History mirtazapine 30 mg tablet 30 mg PO HS 03/29/23 05/05/24 History ramelteon 8 mg tablet 8 mg PO HS PRN Insomnia 03/29/23 05/05/24 History albuterol sulfate 2.5 mg/3 mL 2.5 mg inhalation Q4H PRN 11/17/23 05/05/24 History (0.083 %) solution for nebulization COPD/SHORT OF BREATH aspirin 81 mg chewable tablet 81 mg PO DAILY 11/17/23 05/05/24 History budesonide 0.5 mg/2 mL suspension 0.5 mg inhalation BID 11/17/23 05/05/24 History for nebulization (Pulmicort) candesartan 16 mg tablet 16 mg PO DAILY 11/17/23 05/05/24 History duloxetine 30 mg capsule,delayed 30 mg PO .AFTERNOON 11/17/23 05/05/24 History release fluticasone furoate 100 1 inh inhalation QAM 11/17/23 05/05/24 History mcg-vilanterol 25 mcg/dose inhalation powder (Breo Ellipta) furosemide 20 mg tablet 40 mg PO QAM 11/17/23 05/05/24 History oxycodone-acetaminophen 7.5 mg-325 1 tab PO TID 11/17/23 05/05/24 History mg tablet (Percocet) potassium chloride 10 mEq 10 meq PO QAM 11/17/23 05/05/24 History tablet,extended release(part/cryst) topiramate 50 mg tablet 50 mg PO BID 11/17/23 05/05/24 History vitamin B complex 1 tab PO QAM 11/17/23 05/05/24 History Afrin (oxymetazoline) 3 spray intranasal BID PRN nose 05/05/24 05/05/24 History bleed albuterol sulfate 2.5 mg/3 mL 2.5 mg inhalation BID 05/05/24 05/05/24 History (0.083 %) solution for nebulization mupirocin 2 % topical ointment 1 applic topical DIRECTED PRN 05/05/24 05/05/24 History nose bleed Past Med/Surg History Problem List (Updated 05/05/24 @ 11:56 by Seymour Sorensen MD) Primary hypothyroidism Opioid dependence Essential hypertension Acute on chronic hypoxic respiratory failure COPD exacerbation Acute bronchitis RSV infection (Acute) Acute dyspnea (Acute) Acute hypoxemic respiratory failure (Acute) Alcohol intoxication (Acute) Elevated brain natriuretic peptide (BNP) level (Acute) Generalized weakness (Acute) Ambulatory dysfunction (Acute) Acute hypoxemic respiratory failure (Acute) Fall from standing (Acute) Vitamin D deficiency Numbness COVID-19 (Acute) COVID (Acute) Weakness (Acute) Hypoxic (Acute) Malaise and fatigue COVID Mixed conductive and sensorineural hearing loss of right ear with restricted hearing of left ear Sensorineural hearing loss (SNHL) Impacted cerumen of both ears History of alcoholism Encounter for pre-operative examination Hearing deficit HEARING AIDS Prostate cancer PROSTATE S/P PROSTATECTOMY; NO CHEMO OR RADIATION Hematoma (Acute 07/24/13) Medical History Atrial dysrhythmia Hx of urinary frequency Hypothyroidism Depression History of cervical fracture C5-C6 CERVICAL FRACTURE 2013 TREATED CONSERVATIVELY Hypertension Hypothyroidism GERD (gastroesophageal reflux disease) CONTROLLED Surgical History History of hernia repair History of esophagogastroduodenoscopy (EGD) 01/14/16= MAC SEDATION AT [facility] Hx of shoulder surgery right Hx of arthroscopic knee surgery ? left Hx of prostatectomy History of colonoscopy Social History Smoking Status: Never smoker Tobacco Type: Cigarettes Cigarettes Per Day: 3; Second Hand Exposure: No; Do You Dip or Chew Tobacco: No; Hx Alcohol Use: Yes Alcohol type: hard liquor Hx Substance Use: No Preferred Language: Albanian Communication Ability: Effective Technician Anatomic Pathology Required: No Beliefs That Will Affect Care: None marital status: Single Current Living Situation: Jail Current Living Situation Comment: [facility] current occupational status: retired Feels Safe at Home: Yes Assistive Devices: Denture - Upper, Denture - Lower, Glasses, Hearing Aid - Bilateral and Walker Review of Systems 2 Review of Systems: Constitutionalno fever or chills ENTno blurred vision, no double vision, no epistaxis, no sore throat Respiratoryproductive cough. Wheezing. Dyspnea on exertion. No hemoptysis Cardiacno palpitations, no chest pain, no syncope Lauren nausea, vomiting, diarrhea, melena, hematochezia GUno urinary retention, no urinary incontinence, no dysuria, no hematuria Musculoskeletalno joint pain, no muscle tenderness Skinno bruising, no rashes, no pruritus Neurono isolated weakness, no paresthesia, no weakness Psychno depression, no anxiety Physical Exam 2 Physical Exam: General-alert and oriented x3, no fever, no chills HEENT-head atraumatic and normocephalic, pupils equal and reactive to light, extraocular muscles intact Neck-no lymphadenopathy or thyromegaly, trachea midline Chest-diffuse bilateral rhonchi, diffuse bilateral end expiratory wheezes. No dullness to percussion. Cardiac-regular rate and rhythm, normal S1 and S2 Abdomen-normal bowel sounds, no hepatosplenomegaly Extremities-no cyanosis, clubbing, or edema Neuro-cranial nerves II through XII intact, motor and sensory function within normal limits, strength symmetrical, no focal deficits Psych-normal affect, normal mood Results & Data Results & Data Vital Signs (Past 12 Hours) Vital Signs Temp Pulse Pulse Resp BP Pulse Ox O2 Del Method 05/05/24 11:13 87 05/05/24 11:03 84 21 124/73 93 Nasal Cannula 05/05/24 10:00 98 H 19 104/66 94 Nasal Cannula 05/05/24 09:26 115 H 20 124/83 94 Nasal Cannula 05/05/24 09:22 37.3 C 05/05/24 08:23 104 H 27 H 94 Nasal Cannula 05/05/24 08:13 97 H 29 H 89 L Room Air 05/05/24 08:03 94 H 27 H 132/79 94 Nasal Cannula 05/05/24 07:21 94 H 05/05/24 07:09 106 H 20 92 Nasal Cannula 05/05/24 07:03 99 H 31 H 122/77 91 05/05/24 06:55 Nasal Cannula 05/05/24 06:55 38.4 C H 98 H 20 122/77 94 Nasal Cannula O2 Flow Rate 05/05/24 11:13 05/05/24 11:03 4 05/05/24 10:00 4 05/05/24 09:26 4 05/05/24 09:22 05/05/24 08:23 4.5 05/05/24 08:13 05/05/24 08:03 4 05/05/24 07:21 05/05/24 07:09 6 05/05/24 07:03 05/05/24 06:55 6 05/05/24 06:55 6 Laboratory Results 05/05/24 06:49 05/05/24 06:49 Code Status & VTE Plan Code Status Full code PG Care Time/CCT Total # of Minutes Spent Total Time Spent with Patient: Total time spent is greater than 50% in coordination of care (as documented) at patient's floor/unit and/or counseling patient: Coding Level of Care Code 02640 INT INP/OBS CARE 3/75MIN Diagnoses Acute bronchitis J20.9 COPD exacerbation J44.1 Acute on chronic hypoxic respiratory failure J96.21 Essential hypertension I10 Opioid dependence F11.20 Primary hypothyroidism E03.9
--- NOTE | 2024-05-05 14:58 | Electrocardiogram Report ---
Test Reason : Blood Pressure : */* mmHG Vent. Rate : 103 BPM Atrial Rate : 103 BPM P-R Int : 218 ms QRS Dur : 88 ms QT Int : 332 ms P-R-T Axes : -5 17 38 degrees QTcB Int : 434 ms Sinus tachycardia with 1st degree A-V block Abnormal ECG When compared with ECG of 17-Nov-2023 01:20, Premature ventricular complexes are no longer Present Vent. rate has increased by 38 bpm Confirmed by Sathya Che ([id number]) on 05/05/2024 2:58:07 PM Referred By: Confirmed By: Sathya Che
[2024-05-05] MEDS ORDERED: ACETAMINOPHEN 325 MG TAB PO PRN (16:01)
[2024-05-05] MEDS ORDERED: ONDANSETRON INJ 2 MG/ML 2 ML VIAL IV PRN (16:01)
[2024-05-05] MEDS: methylPREDNISolone 10 mg/mL (For Ped Dose < 7mg) IV SCH (16:39)
[2024-05-05] MEDS: DULoxetine HCL 30 MG CAP PO SCH (16:41)
[2024-05-05] MEDS: oxyCODONE/APAP 7.5/325MG TAB PO SCH (16:41)
[2024-05-05] MEDS: methylPREDNISolone 60 MG in SYRINGE 0 ML IV SCH (16:41)
[2024-05-05 19:27] LABS: Appearance Urine Clear (Clear); Bacteria Urine Automated None Seen (None Seen); Bilirubin Urine Negative (Negative); Blood Urine Negative (Negative); Cast Urine Automated 0-2 /lpf (0-2); Color Urine Yellow; Epithelial Cell Urine Auto 0-2 /hpf (0-2); Glucose Urine UA Negative (Negative); Ketones Urine Negative (Negative); Leukocyte Esterase Urine Negative (Negative); Nitrite Urine Negative (Negative); Protein Urine Trace (Negative); Specific Gravity Urine > 1.045 (1.000-1.030); Urobilinogen Urine Negative (Negative); WBC Urine Automated 0-5 /hpf (0-5); pH Urine 7.5 (4.5-7.5)
[2024-05-05] MEDS: GABAPENTIN 600 MG TAB PO SCH (20:37)
[2024-05-05] MEDS: GABAPENTIN 100 MG CAP PO SCH (20:37)
[2024-05-05] MEDS: APIXABAN 5 MG TABLET PO SCH (20:37)
[2024-05-05] MEDS: TOPIRAMATE 50 MG TAB PO SCH (20:37)
[2024-05-05] MEDS: MIRTAZAPINE TAB 15 MG TAB PO SCH (20:37)
[2024-05-05] MEDS: BUDESONIDE 0.5 MG/2 ML VIAL (PULMICORT) INH SCH (20:57)
[2024-05-06 04:31] LABS: Hematocrit (blood only) 44.9 % (42.0-52.0); Hemoglobin 15.1 g/dl (14.0-18.0); Mean Corpuscular Hemoglobin 31.6 pg (25.0-34.0); Mean Corpuscular Hgb Conc 33.6 g/dL (32.0-36.0); Mean Corpuscular Volume 93.9 fL (80.0-100.0); Mean Platelet Volume 9.8 fL (9.4-12.4); Platelet Count 184 K/uL (130-400); RDW Coefficient of Variation 12.7 % (11.5-14.5); RDW Standard Deviation 43.9 fL (36.4-46.3); Red Blood Count 4.78 M/uL (4.70-6.10); White Blood Count 8.19 K/ul (4.8-10.8)
[2024-05-06 04:41] LABS: BUN Creatinine Ratio 23.3 (10-20); Calcium 9.3 mg/dl (8.6-10.3); Creatinine Clr Calc Pharmacy 76.2 ml/min; Potassium 3.9 mmol/L (3.5-5.1)
[2024-05-06 04:54] LABS: Basophils # (auto) 0.01 K/uL (0.00-0.20); Basophils % (auto) 0.1 %; Immature Granulocytes # (auto) 0.08 K/uL (0.01-0.20); Lymphocytes # (auto) 0.46 K/uL (1.20-3.40); Lymphocytes % (auto) 5.6 %; Monocytes # (auto) 0.19 K/uL (0.11-0.59); Monocytes % (auto) 2.3 %; Neutrophils # (auto) 7.45 K/uL (1.40-6.50); RBC Morphology Unremarkable
[2024-05-06] MEDS: ASPIRIN 81 MG CHEW PO SCH (08:10)
[2024-05-06] MEDS: CHOLECALCIFEROL 25 MCG (1000 UNITS) TAB PO SCH (08:10)
[2024-05-06] MEDS: CYANOCOBALAMIN (B-12) 500 MCG TABLET PO SCH (08:11)
[2024-05-06] MEDS: FUROSEMIDE 40 MG TAB PO SCH (08:12)
[2024-05-06] MEDS: DULoxetine HCL 60 MG CAP PO SCH (08:12)
[2024-05-06] MEDS: METOPROLOL SUCC 25MG EXT REL TAB PO SCH (08:13)
[2024-05-06] MEDS: LOSARTAN POTASSIUM 50 MG TAB PO SCH (08:13)
[2024-05-06] MEDS: LEVOTHYROXINE SODIUM 175 MCG TABLET PO SCH (08:13)
[2024-05-06] MEDS: PANTOprazole 40 MG TAB PO SCH (08:14)
[2024-05-06] MEDS: VITAMIN B COMPLEX TAB PO SCH (08:15)
[2024-05-06] MEDS: POTASSIUM CHLORIDE 10 MEQ TABCR PO SCH (08:15)
[2024-05-06] MEDS: levoFLOXacin/D5W 750 MG/150 ML BAG IV SCH (09:26)
[2024-05-06] MEDS: methylPREDNISolone 40 MG in SYRINGE 0 ML IV SCH (10:48)
[2024-05-06] MEDS: METOPROLOL SUCC 25MG EXT REL TAB PO STA (10:48)
--- NOTE | 2024-05-06 12:21 | Hospitalist Progress Note ---
Date of Service May 06, 2024 Assessment & Plan (1) Acute bronchitis: Plan: Continue intravenous Levaquin, day 2. Obtain sputum culture if sputum is produced. (2) COPD exacerbation: Plan: Treat underlying bronchitis. Down titration of parenteral steroid therapy today, May 06. Scheduled nebulizer treatments. (3) Acute on chronic hypoxic respiratory failure: Plan: Oxygen per nasal cannula to maintain saturation greater than 90%. Wean to chronic oxygen usage (4) Essential hypertension: Plan: Stable. Continue current medical management (5) Opioid dependence: Plan: Stable. Continue Percocet at usual dosages (6) Primary hypothyroidism: Plan: Stable. Continue current thyroid replacement (7) Sinus tachycardia: Plan: Present on admission. Thyroid status is unremarkable. Metoprolol dosage uptitrated today, May 06. Continue telemetry Plan Anticipate eventual discharge 1 to 2 days. Case management consult requested to assist with eventual disposition. OT and PT evaluations requested Admission and Anticipated Discharge Date Admission Date: May 05, 2024 Subjective Alert and oriented. No distress. He states he feels a little bit better. He has not been able to produce any sputum for culture however. He remains on Levaquin, day 2. Parenteral steroid therapy has been down titrated today, May 06. Metoprolol has been uptitrated today, May 06, for better heart rate control. Free T3 and free T4 levels are normal. He remains on 5 L of oxygen with 91% saturation. Chest CTA was negative for acute PE. OT and PT assessments requested. Case management evaluation requested to arrange discharge disposition Review of Systems 2 Review of Systems: Constitutionalno fever or chills ENTno blurred vision, no double vision, no epistaxis, no sore throat Respiratoryproductive cough. Wheezing. Dyspnea on exertion. No hemoptysis Cardiacno palpitations, no chest pain, no syncope Lauren nausea, vomiting, diarrhea, melena, hematochezia GUno urinary retention, no urinary incontinence, no dysuria, no hematuria Musculoskeletalno joint pain, no muscle tenderness Skinno bruising, no rashes, no pruritus Neurono isolated weakness, no paresthesia, no weakness Psychno depression, no anxiety Physical Exam 2 Physical Exam: General-alert and oriented x3, no fever, no chills HEENT-head atraumatic and normocephalic, pupils equal and reactive to light, extraocular muscles intact Neck-no lymphadenopathy or thyromegaly, trachea midline Chest-diffuse bilateral rhonchi, diffuse bilateral end expiratory wheezes. No dullness to percussion. Cardiac-regular rate and rhythm, normal S1 and S2 Abdomen-normal bowel sounds, no hepatosplenomegaly Extremities-no cyanosis, clubbing, or edema Neuro-cranial nerves II through XII intact, motor and sensory function within normal limits, strength symmetrical, no focal deficits Psych-normal affect, normal mood Results & Data Results & Data Vital Signs (Past 12 Hours) Vital Signs Temp Pulse Pulse Resp BP Pulse Ox O2 Del Method 05/06/24 10:17 98 H 22 132/85 95 Nasal Cannula 05/06/24 08:00 Nasal Cannula 05/06/24 08:00 36.4 C L 108 H 24 157/94 H 91 Nasal Cannula 05/06/24 07:15 89 20 93 Nasal Cannula 05/06/24 06:53 85 05/06/24 05:00 82 18 147/85 H 96 Nasal Cannula 05/06/24 02:00 78 18 106/72 96 Nasal Cannula O2 Flow Rate 05/06/24 10:17 5 05/06/24 08:00 5 05/06/24 08:00 5 05/06/24 07:15 6 05/06/24 06:53 05/06/24 05:00 5 05/06/24 02:00 5 Laboratory Results 05/06/24 04:04 05/06/24 04:03 PG Care Time/CCT Total # of Minutes Spent Total Time Spent with Patient: Total time spent is greater than 50% in coordination of care (as documented) at patient's floor/unit and/or counseling patient: Coding Level of Care Code 89564 SUB INP/OBS CARE 3/50MIN Diagnoses Acute bronchitis J20.9 COPD exacerbation J44.1 Acute on chronic hypoxic respiratory failure J96.21 Essential hypertension I10 Opioid dependence F11.20 Primary hypothyroidism E03.9 Sinus tachycardia R00.0
[2024-05-07 06:14] LABS: Basophils # (auto) 0.01 K/uL (0.00-0.20); Basophils % (auto) 0.1 %; Hematocrit (blood only) 42.2 % (42.0-52.0); Hemoglobin 14.1 g/dl (14.0-18.0); Immature Granulocytes # (auto) 0.12 K/uL (0.01-0.20); Immature Granulocytes % (auto) 0.9 %; Lymphocytes # (auto) 0.67 K/uL (1.20-3.40); Lymphocytes % (auto) 4.9 %; Mean Corpuscular Hemoglobin 31.2 pg (25.0-34.0); Mean Corpuscular Hgb Conc 33.4 g/dL (32.0-36.0); Mean Corpuscular Volume 93.4 fL (80.0-100.0); Mean Platelet Volume 9.7 fL (9.4-12.4); Monocytes # (auto) 0.69 K/uL (0.11-0.59); Monocytes % (auto) 5.1 %; Neutrophils # (auto) 12.15 K/uL (1.40-6.50); Platelet Count 218 K/uL (130-400); RDW Coefficient of Variation 12.8 % (11.5-14.5); RDW Standard Deviation 43.7 fL (36.4-46.3); Red Blood Count 4.52 M/uL (4.70-6.10); White Blood Count 13.64 K/ul (4.8-10.8)
[2024-05-07 06:33] LABS: BUN Creatinine Ratio 29.8 (10-20); Calcium 9.4 mg/dl (8.6-10.3); Creatinine Clr Calc Pharmacy 71.9 ml/min; Potassium 4.9 mmol/L (3.5-5.1)
[2024-05-07] MEDS: METOPROLOL SUCC 50MG EXT REL TAB PO SCH (07:52)
[2024-05-07] MEDS: ALBUT/IPRATROP 3MG/0.5MG NEB 3 ML VIAL NEB SCH (11:12)
--- NOTE | 2024-05-07 12:49 | Hospitalist Progress Note ---
Date of Service May 07, 2024 Assessment & Plan (1) Acute bronchitis: Plan: Improving with intravenous Levaquin, day 3. Obtain sputum culture if sputum is produced. (2) COPD exacerbation: Plan: Much improved with treatment of underlying bronchitis. Continue parenteral steroid therapy while hospitalized and eventual discharge on oral prednisone tapering dose. Scheduled nebulizer treatments. (3) Acute on chronic hypoxic respiratory failure: Plan: Oxygen per nasal cannula to maintain saturation greater than 90%. Wean to chronic oxygen usage. Two-step oxygen evaluation prior to discharge (4) Essential hypertension: Plan: Stable. Diltiazem started in place of losartan. Continue metoprolol. (5) Opioid dependence: Plan: Stable. Continue Percocet at usual dosages (6) Primary hypothyroidism: Plan: Stable. Continue current thyroid replacement (7) Sinus tachycardia: Plan: Present on admission. Thyroid status is unremarkable. Metoprolol dosage uptitrated on May 06. Heart rate has improved. Continue telemetry Plan Anticipate discharge to previous living arrangements tomorrow, May 08. Admission and Anticipated Discharge Date Admission Date: May 05, 2024 Subjective The patient appears much improved. Levaquin day 3 and parenteral steroid day 3. He continues to require supplemental oxygen per nasal cannula. Will obtain two-step tomorrow, May 08, before anticipated discharge to determine how much oxygen he will need at home. Diltiazem started for better blood pressure control which replaces losartan. Review of Systems 2 Review of Systems: Constitutionalno fever or chills ENTno blurred vision, no double vision, no epistaxis, no sore throat Respiratorycough has lessened and is now nonproductive. No wheezing. Mild dyspnea on exertion. No hemoptysis Cardiacno palpitations, no chest pain, no syncope Lauren nausea, vomiting, diarrhea, melena, hematochezia GUno urinary retention, no urinary incontinence, no dysuria, no hematuria Musculoskeletalno joint pain, no muscle tenderness Skinno bruising, no rashes, no pruritus Neurono isolated weakness, no paresthesia, no weakness Psychno depression, no anxiety Physical Exam 2 Physical Exam: General-alert and oriented x3, no fever, no chills HEENT-head atraumatic and normocephalic, pupils equal and reactive to light, extraocular muscles intact Neck-no lymphadenopathy or thyromegaly, trachea midline Chest-diffuse bilateral rhonchi have considerably lessened. Wheezing has ceased. No dullness to percussion. Cardiac-regular rate and rhythm, normal S1 and S2 Abdomen-normal bowel sounds, no hepatosplenomegaly Extremities-no cyanosis, clubbing, or edema Neuro-cranial nerves II through XII intact, motor and sensory function within normal limits, strength symmetrical, no focal deficits Psych-normal affect, normal mood Results & Data Results & Data Vital Signs (Past 12 Hours) Vital Signs Temp Pulse Pulse Resp BP Pulse Ox O2 Del Method 05/07/24 11:51 36.5 C 78 16 128/51 L 99 Nebulizer 05/07/24 11:13 89 20 82 L Room Air 05/07/24 10:04 Nasal Cannula 05/07/24 07:50 36.1 C L 75 24 187/89 H 100 Nebulizer 05/07/24 07:34 67 17 95 Nasal Cannula 05/07/24 07:16 55 L 05/07/24 02:02 162/83 H 05/07/24 01:41 36.4 C L 76 20 95 Nasal Cannula O2 Flow Rate FiO2 05/07/24 11:51 05/07/24 11:13 21 05/07/24 10:04 5 05/07/24 07:50 05/07/24 07:34 5 05/07/24 07:16 05/07/24 02:02 05/07/24 01:41 5 Laboratory Results 05/07/24 05:49 05/07/24 05:49 PG Care Time/CCT Total # of Minutes Spent Total Time Spent with Patient: Total time spent is greater than 50% in coordination of care (as documented) at patient's floor/unit and/or counseling patient: Coding Level of Care Code 16294 SUB INP/OBS CARE 3/50MIN Diagnoses Acute bronchitis J20.9 COPD exacerbation J44.1 Acute on chronic hypoxic respiratory failure J96.21 Essential hypertension I10 Opioid dependence F11.20 Primary hypothyroidism E03.9 Sinus tachycardia R00.0
[2024-05-07] MEDS: dilTIAZem HCl 60 MG TAB PO SCH (13:24)
[2024-05-08 08:27] LABS: Basophils # (auto) 0.01 K/uL (0.00-0.20); Basophils % (auto) 0.1 %; Hematocrit (blood only) 42.4 % (42.0-52.0); Hemoglobin 14.3 g/dl (14.0-18.0); Immature Granulocytes # (auto) 0.08 K/uL (0.01-0.20); Immature Granulocytes % (auto) 0.9 %; Lymphocytes # (auto) 0.76 K/uL (1.20-3.40); Lymphocytes % (auto) 8.1 %; Mean Corpuscular Hemoglobin 31.7 pg (25.0-34.0); Mean Corpuscular Hgb Conc 33.7 g/dL (32.0-36.0); Mean Platelet Volume 9.8 fL (9.4-12.4); Monocytes # (auto) 0.32 K/uL (0.11-0.59); Monocytes % (auto) 3.4 %; Neutrophils # (auto) 8.19 K/uL (1.40-6.50); Neutrophils % (auto) 87.5 %; Platelet Count 218 K/uL (130-400); RDW Coefficient of Variation 12.5 % (11.5-14.5); RDW Standard Deviation 43.6 fL (36.4-46.3); Red Blood Count 4.51 M/uL (4.70-6.10); White Blood Count 9.36 K/ul (4.8-10.8)
[2024-05-08 08:46] LABS: BUN Creatinine Ratio 33.3 (10-20); Calcium 9.1 mg/dl (8.6-10.3); Creatinine Clr Calc Pharmacy 65.6 ml/min; Potassium 4.2 mmol/L (3.5-5.1)
[2024-05-08] MEDS: dilTIAZem HCL 180 MG CAPCR PO SCH (11:35)
--- NOTE | 2024-05-08 15:33 | Hospitalist Progress Note ---
Date of Service May 08, 2024 Assessment & Plan (1) Acute bronchitis: Plan: Continued improvement with intravenous Levaquin, day 4. Obtain sputum culture if sputum is produced. (2) COPD exacerbation: Plan: Much improved with treatment of underlying bronchitis. Continue parenteral steroid therapy while hospitalized and eventual discharge on oral prednisone tapering dose. Scheduled nebulizer treatments. (3) Acute on chronic hypoxic respiratory failure: Plan: Oxygen per nasal cannula to maintain saturation greater than 90%. Currently on 3 L oxygen per nasal cannula. SNF facility can perform two-step evaluation prior to return home. (4) Essential hypertension: Plan: Much improved with switch from losartan to diltiazem. Start long-acting formulation today, May 09 (5) Opioid dependence: Plan: Stable. Continue Percocet at usual dosages (6) Primary hypothyroidism: Plan: Stable. Continue current thyroid replacement (7) Sinus tachycardia: Plan: Present on admission. Now resolved. Thyroid status is unremarkable. Metoprolol dosage uptitrated on May 06. Heart rate has improved. Continue telemetry Plan [facility] tomorrow[facility] Admission and Anticipated Discharge Date Admission Date: May 05, 2024 Subjective Alert, oriented, afebrile, stable. Blood pressure is now well-controlled with short acting diltiazem. Will switch to CD formulation today. Pulmonary status has stabilized. He is on intravenous Levaquin day 4 and Solu-Medrol. He will continue with oral Levaquin at discharge along with a tapering dose of prednisone. He will go to [facility] tomorrow, May 09. He remains on oxygen per nasal cannula which will eventually be weaned off. Review of Systems 2 Review of Systems: Constitutionalno fever or chills ENTno blurred vision, no double vision, no epistaxis, no sore throat Respiratorycough has lessened and is now nonproductive. No wheezing. Mild dyspnea on exertion. No hemoptysis Cardiacno palpitations, no chest pain, no syncope Lauren nausea, vomiting, diarrhea, melena, hematochezia GUno urinary retention, no urinary incontinence, no dysuria, no hematuria Musculoskeletalno joint pain, no muscle tenderness Skinno bruising, no rashes, no pruritus Neurono isolated weakness, no paresthesia, no weakness Psychno depression, no anxiety Physical Exam 2 Physical Exam: General-alert and oriented x3, no fever, no chills HEENT-head atraumatic and normocephalic, pupils equal and reactive to light, extraocular muscles intact Neck-no lymphadenopathy or thyromegaly, trachea midline Chest-diffuse bilateral rhonchi have considerably lessened. Wheezing has ceased. No dullness to percussion. Cardiac-regular rate and rhythm, normal S1 and S2 Abdomen-normal bowel sounds, no hepatosplenomegaly Extremities-no cyanosis, clubbing, or edema Neuro-cranial nerves II through XII intact, motor and sensory function within normal limits, strength symmetrical, no focal deficits Psych-normal affect, normal mood Results & Data Results & Data Vital Signs (Past 12 Hours) Vital Signs Temp Pulse Pulse Resp BP Pulse Ox O2 Del Method 05/08/24 14:10 73 05/08/24 11:54 36.6 C 62 16 120/70 95 Nasal Cannula 05/08/24 11:40 63 18 96 Nasal Cannula 05/08/24 10:58 Nasal Cannula 05/08/24 07:53 36.3 C L 75 16 125/67 92 Nasal Cannula 05/08/24 07:12 79 18 94 Nasal Cannula 05/08/24 07:09 52 L 05/08/24 06:38 90 Room Air O2 Flow Rate 05/08/24 14:10 05/08/24 11:54 3 05/08/24 11:40 4 05/08/24 10:58 3 05/08/24 07:53 3 05/08/24 07:12 2 05/08/24 07:09 05/08/24 06:38 Laboratory Results 05/08/24 07:56 05/08/24 07:56 PG Care Time/CCT Total # of Minutes Spent Total Time Spent with Patient: Total time spent is greater than 50% in coordination of care (as documented) at patient's floor/unit and/or counseling patient: Coding Level of Care Code 65611 SUB INP/OBS CARE 3/50MIN Diagnoses Acute bronchitis J20.9 COPD exacerbation J44.1 Acute on chronic hypoxic respiratory failure J96.21 Essential hypertension I10 Opioid dependence F11.20 Primary hypothyroidism E03.9 Sinus tachycardia R00.0
[2024-05-09 07:55] VITALS: TEMP 97.5
[2024-05-09 11:26] VITALS: RESP 17; O2SAT 93
--- NOTE | 2024-05-09 11:33 | Discharge Summary ---
Discharge Summary Date of Service May 09, 2024 Principal Dx & Hospital Course #1 = Principal Diagnosis (1) Acute bronchitis: Much improved. Treated while hospitalized with intravenous Levaquin. He will continue oral Levaquin for 5 more days at discharge. He never produced any sputum so a sputum culture was not done (2) COPD exacerbation: Much improved with treatment of underlying bronchitis. Treated while hospitalized with parenteral steroid therapy. Discharge on oral prednisone tapering dose. (3) Acute on chronic hypoxic respiratory failure: Oxygen per nasal cannula to maintain saturation greater than 90%. Currently on 3 L oxygen per nasal cannula. SNF facility can perform two-step evaluation prior to return home. (4) Essential hypertension: Much improved with switch from ARB to diltiazem. Start long-acting formulation started on May 08 (5) Opioid dependence: Stable. Continue Percocet at usual dosages (6) Primary hypothyroidism: Stable. Continue current thyroid replacement (7) Sinus tachycardia: Present on admission. Now resolved. Thyroid status is unremarkable. Me toprolol dosage uptitrated on May 06. Diltiazem has been started in place of candesartan. Heart rate has improved. Continue telemetry Plan Discharge to [facility] today, May 09 Admission HPI Per Admitting Provider 83-year-old white male with COPD and chronic respiratory failure on home oxygen. He is unable to tell me how much oxygen he uses however. He has had worsening shortness of breath with productive cough and requiring higher than usual amount of oxygen. Chest x-ray is clear on admission and chest CTA negative for PE. On examination he has evidence of asthmatic bronchitis with diffuse wheezing and exacerbation of COPD. He has acute on chronic respiratory failure as evidenced by higher than usual requirements for oxygen per nasal cannula. He denies hemoptysis. No documented fever. Discharge Exam General-alert and oriented x3, no fever, no chills HEENT-head atraumatic and normocephalic, pupils equal and reactive to light, extraocular muscles intact Neck-no lymphadenopathy or thyromegaly, trachea midline Chest-diffuse bilateral rhonchi have considerably lessened. Wheezing has ceased. No dullness to percussion. Cardiac-regular rate and rhythm, normal S1 and S2 Abdomen-normal bowel sounds, no hepatosplenomegaly Extremities-no cyanosis, clubbing, or edema Neuro-cranial nerves II through XII intact, motor and sensory function within normal limits, strength symmetrical, no focal deficits Psych-normal affect, normal mood Discharge Plan Discharge Items Patient Disposition: Transfer Assisted Fac Reason For Visit: ASTHMATIC BRONCHITIS, EXAC COPD, A/C RESP FAILURE Discharge Diagnosis: Acute bronchitis, acute exacerbation COPD, acute on chronic respiratory failure Activity: Resume your previous activity Non-emergency contact: Primary Care Provider Call non-emergency contact if: your symptoms worsen Follow-up/Referrals: Magaly Nicole [Primary Care Provider] - Diet: Regular Addtl Attending Provider Instructions: Continue Levaquin antibiotic for 5 more days. Take prednisone in a tapering dose fashion as directed. Candesartan has been switched to diltiazem for blood pressure control and heart rate control. Metoprolol dosage has been increased Pending Studies at Discharge: No Stand-Alone Forms: My [facility] Skilled Items Patient informed of condition?: Yes DNR: No Discharge Level of Care: Other Communicable Disease: No Discharge Prognosis: Stable Lines: None Urinary Catheter: No Medications and DC Order Prescriptions: New prednisone 10 mg Tablet See Rx Instructions .ROUTE .COMPLEX Qty: 12 0RF Rx Instructions: 10 mg orally 3 times a day for 2 days, then 10 mg twice a day for 2 days, then 10 mg once a day for 2 days, then stop diltiazem HCl 180 mg Capsule,Extended Release 24hr 180 mg PO QAM Qty: 30 0RF levofloxacin 500 mg Tablet 500 mg PO DAILY@1100 Qty: 5 0RF metoprolol succinate 50 mg Tablet Extended Release 24 Hr 50 mg PO QAM Qty: 30 0RF Continued Eliquis 5 mg tablet 5 mg PO BID gabapentin 100 mg capsule 100 mg PO BID levothyroxine 175 mcg tablet 175 mcg PO QAM mirtazapine 30 mg tablet 30 mg PO HS ramelteon 8 mg tablet 8 mg PO HS PRN (Reason: Insomnia) triamcinolone acetonide 0.1 % Cream 1 applic TOPICAL DAILY PRN (Reason: affected areas) esomeprazole magnesium [Nexium] 40 mg Capsule,Delayed Release(Dr/Ec) 40 mg PO Q2D cholecalciferol (vitamin D3) [Vitamin D3] 2,000 unit Tablet 2,000 unit PO QAM gabapentin 600 mg tablet 600 mg PO HS clobetasol 0.05 % Cream 1 applic TOPICAL BID PRN (Reason: ITCHINESS) cyanocobalamin (vitamin B-12) [Vitamin B-12] 1,000 mcg Tablet 1,000 mcg PO QAM duloxetine [Cymbalta] 60 mg Capsule,Delayed Release(Dr/Ec) 60 mg PO QAM albuterol sulfate 2.5 mg /3 mL (0.083 %) Solution For Nebulization 2.5 mg INHALATION Q4H PRN (Reason: COPD/SHORT OF BREATH) budesonide [Pulmicort] 0.5 mg/2 mL Suspension For Nebulization 0.5 mg INHALATION BID aspirin 81 mg Tablet,Chewable 81 mg PO DAILY vitamin B complex Tablet 1 tab PO QAM furosemide 20 mg tablet 40 mg PO QAM oxycodone-acetaminophen [Percocet] 7.5-325 mg Tablet 1 tab PO TID MDD 3 GRAMS APAP/24 HOURS potassium chloride 10 mEq tablet,ER particles/crystals 10 meq PO QAM topiramate 50 mg tablet 50 mg PO BID Rx Instructions: START 11/16/23 FOR 8 DAY, THEN BEGIN 50 MG BID ON 11/24/23. duloxetine 30 mg capsule,delayed release(DR/EC) 30 mg PO .AFTERNOON Rx Instructions: AFTERNOON fluticasone furoate-vilanterol [Breo Ellipta] 100-25 mcg/dose Blister With Device 1 inh INHALATION QAM Afrin (oxymetazoline) 3 spray intranasal BID PRN (Reason: nose bleed) Rx Instructions: if bleeding does not stop in 20-30 mins needs ER. albuterol sulfate 2.5 mg /3 mL (0.083 %) Solution For Nebulization 2.5 mg inhalation BID mupirocin 2 % Ointment 1 applic TOPICAL DIRECTED PRN (Reason: nose bleed) Discontinued metoprolol succinate [Toprol XL] 25 mg tablet extended release 24 hr 25 mg PO QAM candesartan 16 mg tablet 16 mg PO DAILY Discharge Orders: Discharge Order (Routine); Ordered 05/09/24 Ordered By: Seymour Sorensen Admission Data Admit Date/Time: 05/05/24 10:38 Attending Provider: Seymour Sorensen Admit Provider: Seymour Sorensen Primary Care Provider: Magaly Nicole Other Providers: Seymour Sorensen Hospital Stay Data Consultations 05/05/24 10:00 ED Decision to Admit Stat Diagnostic Imagining Performed 05/05/24 10:00 CT for pulmonary embolism PE [CT angio chest PE protocol] Stat Pending Results Patient Have Any Pending Studies at Discharge: No Discharge Instructions Given to Patient (Per Discharging Provider) Continue Levaquin antibiotic for 5 more days. Take prednisone in a tapering dose fashion as directed. Candesartan has been switched to diltiazem for blood pressure control and heart rate control. Metoprolol dosage has been increased Total Time Total Time Spent Total Time Spent (In Minutes): 45 minutes Coding Level of Care Code 71924 INP/OBS DISCH >30 MIN Diagnoses Acute bronchitis J20.9 COPD exacerbation J44.1 Acute on chronic hypoxic respiratory failure J96.21 Essential hypertension I10 Opioid dependence F11.20 Primary hypothyroidism E03.9 Sinus tachycardia R00.0
[2024-05-09 11:55] VITALS: BP 143/78; PULSE 75
[2024-05-09] MEDS: levoFLOXacin 500 MG TAB PO SCH (12:00)
[2024-05-09] MEDS ORDERED: predniSONE 10 MG TABLET PO SCH (14:00)
== END 2024-05-09 13:02 | DRG 189 ==
LOC: ED 06:47 → EDINP 10:38 → 2W 05-06 14:45

== ENCOUNTER 2024-05-23 20:42 | Observation (INO) ==
[2024-05-23 21:32] LABS: Basophils # (auto) 0.03 K/uL (0.00-0.20); Basophils % (auto) 0.3 %; Eosinophils # (auto) 0.06 K/uL (0.00-0.50); Eosinophils % (auto) 0.7 %; Hematocrit (blood only) 45.9 % (42.0-52.0); Hemoglobin 15.7 g/dl (14.0-18.0); Immature Granulocytes # (auto) 0.02 K/uL (0.01-0.20); Immature Granulocytes % (auto) 0.2 %; Lymphocytes # (auto) 0.81 K/uL (1.20-3.40); Lymphocytes % (auto) 9.4 %; Mean Corpuscular Hemoglobin 31.6 pg (25.0-34.0); Mean Corpuscular Hgb Conc 34.2 g/dL (32.0-36.0); Mean Corpuscular Volume 92.4 fL (80.0-100.0); Mean Platelet Volume 10.1 fL (9.4-12.4); Monocytes # (auto) 1.56 K/uL (0.11-0.59); Monocytes % (auto) 18.1 %; Neutrophils # (auto) 6.14 K/uL (1.40-6.50); Neutrophils % (auto) 71.3 %; Platelet Count 203 K/uL (130-400); RDW Coefficient of Variation 12.3 % (11.5-14.5); RDW Standard Deviation 41.7 fL (36.4-46.3); Red Blood Count 4.97 M/uL (4.70-6.10); White Blood Count 8.62 K/ul (4.8-10.8)
[2024-05-23 21:37] LABS: Albumin Globulin Ratio 1.1 (0.9-2); Albumin Level 3.8 gm/dl (3.4-5.0); BUN Creatinine Ratio 18.6 (10-20); Bilirubin,Total 0.8 mg/dl (0.2-1.0); Calcium 8.8 mg/dl (8.6-10.3); Creatinine Clr Calc Pharmacy 59.7 ml/min; Globulin 3.5 gm/dl (2.5-4.0); Magnesium 2.2 mg/dl (1.7-2.4); Potassium 4.2 mmol/L (3.5-5.1); Total Protein 7.3 gm/dl (6.0-8.3)
[2024-05-23] MEDS: ACETAMINOPHEN 1,000 MG/100 ML VIAL IV STA (21:39)
[2024-05-23 21:43] LABS: Troponin I High Sensitivity 15.4 pg/ml (0-20)
[2024-05-23 21:52] LABS: Thyroid Stimulating Hormone 0.614 uIu/ml (0.300-4.500)
[2024-05-23 21:53] LABS: INR 1.2 (0.9-1.1); Prothrombin Time 12.7 Seconds (9.0-12.0)
--- NOTE | 2024-05-23 22:34 | Emergency Department Note ---
Impression & Plan Acute confusion, Influenza A ED Provider Note HISTORY OF PRESENT ILLNESS: Patient is an 83-year-old male presenting for reported confusion. EMS provides history. Reports that the patient was found seated at the edge of his bed having a nosebleed and the facility was able to stop the bleed. However, they noted that the patient seemed more confused than his normal. They report that he had an episode of bowel incontinence and had a "distended abdomen." On arrival to the ER, the patient has no complaints. He is not sure why he was sent from his facility. He denies any abdominal pain, nausea or vomiting. Denies any chest pain or shortness of breath. ROS: as above PHYSICAL EXAM: Constitutional: Patient appears in no acute distress. HENT: Head: Normocephalic and atraumatic. Eyes: EOMI, PERRL Mouth/Throat: Mucous membranes moist. Neck: Trachea midline. Neck supple. Cardiovascular: Irregular rhythm. No murmurs, rubs or gallops. Intact distal pulses. Pulmonary/Chest: No respiratory distress. Breath sounds clear and equal bilaterally. No wheezes or rales. Abdominal: Abdomen soft, no tenderness, rebound or guarding. Musculoskeletal: No edema, tenderness or deformity noted. Skin: Warm and dry. No rash, erythema, pallor or cyanosis Neurological: Alert to self. CN II-XII grossly intact, moving all extremities equally and fully. MDM: - Vitals signs showed fever - History obtained via patient and EMS, given patient's confusion. History as above. - Chronic conditions affecting care: depression; hypothyroidism; GERD; HTN; atrial dysrhythmia - Differential diagnoses include, but are not limited to: UTI; pneumonia; viral syndrome; small bowel obstruction; colitis; diverticulitis - Order placed for continuous cardiac monitoring. At this time, monitor showed rate of 82 bpm with irregular rhythm, per my interpretation. - External medical records reviewed. Discharge summary dated 05/09/2024 was reviewed. Patient was admitted for COPD exacerbation secondary to RSV infection - EKG interpreted by myself showed atrial fibrillation. Rate 94 bpm. QT 352. No acute ischemic changes. - Laboratory workup interpreted by myself showed normal WBC; slightly elevated INR (1.2); elevated anion gap (12); normal lactate; normal procalcitonin; normal troponin; normal TSH - CXR negative for pneumonia, per my interpretation - Viral respiratory panel positive for RSV, COVID and influenza A. Patient has previously been positive for COVID-19 in early April 2024. Also was admitted on 05/05/2024 with positive RSV. So COVID and RSV are likely just persistently positive from his previous infections. Influenza A is new and likely his source of fever and symptoms for this ER presentation. - CT head wo contrast negative for acute intracranial pathology - Patient given 1g IV tylenol in ER for fever - UA ordered - Given patient's persistent confusion, will admit to hospitalist service. - Discussion was had with pillowcase maker about patient's case and need for admission - Hospitalist, Dr. Bhatt, consulted for admission - Patient admitted to [facility] hospitalist service for further evaluation and management. ASSESSMENT AND PLAN: Diagnosis: Acute confusion; influenza A Plan: Admit Past Med/Surg History Problem List (Updated 05/23/24 @ 23:33 by Jessi Chavez MD) Influenza A (Acute) Acute confusion (Acute) Sinus tachycardia Primary hypothyroidism Opioid dependence Essential hypertension Acute on chronic hypoxic respiratory failure COPD exacerbation Acute bronchitis RSV infection (Acute) Acute dyspnea (Acute) Acute hypoxemic respiratory failure (Acute) Alcohol intoxication (Acute) Elevated brain natriuretic peptide (BNP) level (Acute) Generalized weakness (Acute) Ambulatory dysfunction (Acute) Acute hypoxemic respiratory failure (Acute) Fall from standing (Acute) Vitamin D deficiency Numbness COVID-19 (Acute) COVID (Acute) Weakness (Acute) Hypoxic (Acute) Malaise and fatigue COVID Mixed conductive and sensorineural hearing loss of right ear with restricted hearing of left ear Sensorineural hearing loss (SNHL) Impacted cerumen of both ears History of alcoholism Encounter for pre-operative examination Hearing deficit HEARING AIDS Prostate cancer PROSTATE S/P PROSTATECTOMY; NO CHEMO OR RADIATION Hematoma (Acute 07/24/13) Medical History Atrial dysrhythmia Hx of urinary frequency Hypothyroidism Depression History of cervical fracture C5-C6 CERVICAL FRACTURE 2013 TREATED CONSERVATIVELY Hypertension Hypothyroidism GERD (gastroesophageal reflux disease) CONTROLLED Surgical History History of hernia repair History of esophagogastroduodenoscopy (EGD) 01/14/16= [facility] SEDATION AT [facility] Hx of shoulder surgery right Hx of arthroscopic knee surgery ? 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 Current Living Situation Comment: [facility] current occupational status: retired Feels Safe at Home: Yes Assistive Devices: Walker Allergies Allergies Allergy/AdvReac Type Severity Reaction Status Date / Time Penicillins Allergy Severe SEVERE Verified 11/17/23 02:25 SWELLING AND HIVES Sulfa (Sulfonamide Allergy Severe SEVERE Verified 11/17/23 02:25 Antibiotics) SWELLING AND HIVES Home Meds Home Medications Medication Instructions Recorded Confirmed cholecalciferol (vitamin D3) 50 2,000 unit PO QAM 04/12/18 05/05/24 mcg (2,000 unit) tablet (Vitamin D3) esomeprazole magnesium 40 mg 40 mg PO Q2D 04/12/18 05/05/24 capsule,delayed release (Nexium) triamcinolone acetonide 0.1 % 1 applic topical DAILY PRN 04/12/18 05/05/24 topical cream affected areas clobetasol 0.05 % topical cream 1 applic topical BID PRN ITCHINESS 08/28/22 05/05/24 cyanocobalamin (vitamin B-12) 1,000 mcg PO QAM 08/28/22 05/05/24 1,000 mcg tablet (Vitamin B-12) duloxetine 60 mg capsule,delayed 60 mg PO QAM 08/28/22 05/05/24 release (Cymbalta) gabapentin 600 mg tablet 600 mg PO HS 08/28/22 05/05/24 apixaban 5 mg tablet (Eliquis) 5 mg PO BID 03/29/23 05/05/24 gabapentin 100 mg capsule 100 mg PO BID 03/29/23 05/05/24 levothyroxine 175 mcg tablet 175 mcg PO QAM 03/29/23 05/05/24 mirtazapine 30 mg tablet 30 mg PO HS 03/29/23 05/05/24 ramelteon 8 mg tablet 8 mg PO HS PRN Insomnia 03/29/23 05/05/24 albuterol sulfate 2.5 mg/3 mL 2.5 mg inhalation Q4H PRN 11/17/23 05/05/24 (0.083 %) solution for nebulization COPD/SHORT OF BREATH aspirin 81 mg chewable tablet 81 mg PO DAILY 11/17/23 05/05/24 budesonide 0.5 mg/2 mL suspension 0.5 mg inhalation BID 11/17/23 05/05/24 for nebulization (Pulmicort) duloxetine 30 mg capsule,delayed 30 mg PO .AFTERNOON 11/17/23 05/05/24 release fluticasone furoate 100 1 inh inhalation QAM 11/17/23 05/05/24 mcg-vilanterol 25 mcg/dose inhalation powder (Breo Ellipta) furosemide 20 mg tablet 40 mg PO QAM 11/17/23 05/05/24 oxycodone-acetaminophen 7.5 mg-325 1 tab PO TID 11/17/23 05/05/24 mg tablet (Percocet) potassium chloride 10 mEq 10 meq PO QAM 11/17/23 05/05/24 tablet,extended release(part/cryst) topiramate 50 mg tablet 50 mg PO BID 11/17/23 05/05/24 vitamin B complex 1 tab PO QAM 11/17/23 05/05/24 Afrin (oxymetazoline) 3 spray intranasal BID PRN nose 05/05/24 05/05/24 bleed albuterol sulfate 2.5 mg/3 mL 2.5 mg inhalation BID 05/05/24 05/05/24 (0.083 %) solution for nebulization mupirocin 2 % topical ointment 1 applic topical DIRECTED PRN 05/05/24 05/05/24 nose bleed Previous Rx's Medication Instructions Recorded diltiazem HCl 180 mg 180 mg PO QAM #30 caps 05/09/24 capsule,extended release 24 hr levofloxacin 500 mg tablet 500 mg PO DAILY@1100 #5 tabs 05/09/24 metoprolol succinate 50 mg 50 mg PO QAM #30 tabs 05/09/24 tablet,extended release 24 hr prednisone 10 mg tablet See Rx Instructions .Route 05/09/24 .COMPLEX #12 tabs Results & Data (ED) Vital Signs Vital Signs - 24 hr 05/23/24 20:46 05/23/24 20:47 05/23/24 20:55 Temperature 38.0 C H Temperature Source Oral Pulse Rate 107 H 93 H 94 H Pulse Rate from SpO2 Sensor 97 H Pulse Rhythm Regular Pulse Strength Normal Respiratory Rate 22 20 Respiratory Effort / Characteristics Non-Labored Spontaneous Respiratory Depth Normal Respiratory Pattern Regular Blood Pressure 123/88 123/88 Blood Pressure Mean 102 99 Blood Pressure Position Lying Pulse Oximetry 94 91 Oxygen Delivery Method Room Air Oxygen Flow Rate Sepsis Recent Fever Within 48 Hours Yes Sepsis New/Unexplained Change in Mental Status Yes Sepsis Action Taken by Nursing No Action Required 05/23/24 20:57 05/23/24 21:00 05/23/24 21:39 Temperature Temperature Source Pulse Rate 99 H 92 H Pulse Rate from SpO2 Sensor 98 H Pulse Rhythm Pulse Strength Respiratory Rate 22 Respiratory Effort / Characteristics Respiratory Depth Respiratory Pattern Blood Pressure 120/96 125/80 Blood Pressure Mean 109 90 Blood Pressure Position Pulse Oximetry 93 92 91 Oxygen Delivery Method Room Air Oxygen Flow Rate 0 Sepsis Recent Fever Within 48 Hours Sepsis New/Unexplained Change in Mental Status Sepsis Action Taken by Nursing 05/23/24 21:42 05/23/24 21:42 05/23/24 22:00 Temperature Temperature Source Pulse Rate 88 93 H 82 Pulse Rate from SpO2 Sensor Pulse Rhythm Irregular Pulse Strength Respiratory Rate 22 24 22 Respiratory Effort / Characteristics Respiratory Depth Respiratory Pattern Blood Pressure 115/77 102/72 Blood Pressure Mean 88 79 Blood Pressure Position Pulse Oximetry 93 92 92 Oxygen Delivery Method Room Air Oxygen Flow Rate 0 Sepsis Recent Fever Within 48 Hours Sepsis New/Unexplained Change in Mental Status Sepsis Action Taken by Nursing 05/23/24 22:30 05/23/24 22:43 05/23/24 23:00 Temperature Temperature Source Pulse Rate 92 H 81 83 Pulse Rate from SpO2 Sensor 91 H 82 82 Pulse Rhythm Pulse Strength Respiratory Rate 20 19 18 Respiratory Effort / Characteristics Respiratory Depth Respiratory Pattern Blood Pressure 92/76 L 115/84 103/74 Blood Pressure Mean 82 88 84 Blood Pressure Position Pulse Oximetry 90 91 92 Oxygen Delivery Method Oxygen Flow Rate Sepsis Recent Fever Within 48 Hours Sepsis New/Unexplained Change in Mental Status Sepsis Action Taken by Nursing Laboratory Data 05/23/24 20:52 05/23/24 20:52 Lab Results 05/23/24 05/23/24 Range/Units 20:52 21:20 WBC 8.62 (4.8-10.8) K/ul RBC 4.97 (4.70-6.10) M/uL Hgb 15.7 (14.0-18.0) g/dl Hct 45.9 (42.0-52.0) % MCV 92.4 (80.0-100.0) fL MCH 31.6 (25.0-34.0) pg MCHC 34.2 (32.0-36.0) g/dL RDW Std Deviation 41.7 (36.4-46.3) fL RDW Coeff of Edward 12.3 (11.5-14.5) % Plt Count 203 (130-400) K/uL MPV 10.1 (9.4-12.4) fL Immature Gran % (Auto) 0.2 % Neut % (Auto) 71.3 % Lymph % (Auto) 9.4 % Assumption % (Auto) 18.1 % Eos % (Auto) 0.7 % Baso % (Auto) 0.3 % Neut # (Auto) 6.14 (1.40-6.50) K/uL Lymph # (Auto) 0.81 L (1.20-3.40) K/uL Assumption # (Auto) 1.56 H (0.11-0.59) K/uL Eos # (Auto) 0.06 (0.00-0.50) K/uL Baso # (Auto) 0.03 (0.00-0.20) K/uL Immature Gran # (Auto) 0.02 (0.01-0.20) K/uL PT 12.7 H (9.0-12.0) Seconds INR 1.2 H (0.9-1.1) Sodium 135 L (136-145) mmol/L Potassium 4.2 (3.5-5.1) mmol/L Chloride 103 (98-107) mmol/L Carbon Dioxide 20 L (21-32) mmol/L Anion Gap 12 H (3-11) BUN 21 (6-23) mg/dl Creatinine 1.13 (0.6-1.4) mg/dl Est Cr Clr Drug Dosing 59.7 ml/min eGFR 64.49 BUN/Creatinine Ratio 18.6 (10-20) Glucose 138 H (70-99(Fasting)) mg/dl Lactate 1.2 (0.4-2.0) mmol/L Calcium 8.8 (8.6-10.3) mg/dl Magnesium 2.2 (1.7-2.4) mg/dl Total Bilirubin 0.8 (0.2-1.0) mg/dl AST 21 (13-39) U/L ALT 12 (7-52) U/L Alkaline Phosphatase 75 (34-104) U/L Troponin I High Sens 15.4 (0-20) pg/ml Total Protein 7.3 (6.0-8.3) gm/dl Albumin 3.8 (3.4-5.0) gm/dl Globulin 3.5 (2.5-4.0) gm/dl Albumin/Globulin Ratio 1.1 (0.9-2) Procalcitonin 0.03 (0-0.5) ng/ml TSH 0.614 (0.300-4.500) uIu/ml Nasal Influ A H1 2008 PCR DETECTED A (NotDetected) Adenovirus (PCR) Not Detected (NotDetected) B. pertussis DNA (PCR) Not Detected (NotDetected) B.parapertussis DNA PCR Not Detected (NotDetected) C. pneumoniae DNA (PCR) Not Detected (NotDetected) Coronavirus OC43 (PCR) Not Detected (NotDetected) Coronavirus HKU1 (PCR) Not Detected (NotDetected) Coronavirus 229E (PCR) Not Detected (NotDetected) SARS-CoV-2 (PCR) DETECTED A (NotDetected) Coronavirus NL63 (PCR) Not Detected (NotDetected) Human Metapneumovir PCR Not Detected (NotDetected) Influenza Type B (PCR) Not Detected (NotDetected) M. pneumoniae (PCR) Not Detected (NotDetected) Parainfluenza 1 (PCR) Not Detected (NotDetected) Parainfluenza 2 (PCR) Not Detected (NotDetected) Parainfluenza 3 (PCR) Not Detected (NotDetected) Parainfluenza 4 (PCR) Not Detected (NotDetected) RSV (PCR) DETECTED A (NotDetected) Entero/Rhino (PCR) Not Detected (NotDetected) Administered Medications Discontinued Medications Acetaminophen (Ofirmev) 1,000 mg in 100 mls @ 400 mls/hr IV NOW STA Stop: 05/23/24 21:26 Last Infusion: 05/23/24 22:40 Dose: Infused Documented By: Admin: 05/23/24 21:39 Dose: 400 mls/hr Documented By: WILBER Imaging Data Radiologist's Impression: Chest X-Ray 05/23/24 21:12 Exam(s): XR CXR 1 VIEW EXAM: XR Chest, 1 View CLINICAL HISTORY: Reason for exam: weakness. TECHNIQUE: Frontal view of the chest. COMPARISON: 05/05/2024 FINDINGS: Lungs: Left basilar atelectasis. Otherwise the lungs are clear. Pleural space: No pleural effusion. No pneumothorax. Heart: Unremarkable. No cardiomegaly. Bones/joints: Chronic fracture deformities in the ribs on the left. IMPRESSION: No acute findings in the chest. Electronically signed by: Martin Brar MD 05/23/24 23:[address] 05/23/24 21:12 Exam(s): CT HEAD Without Contrast EXAM: CT Head Without Intravenous Contrast CLINICAL HISTORY: Reason for exam: confusion. TECHNIQUE: Axial computed tomography images of the head/brain without intravenous contrast. CTDI is 37.22 mGy and DLP is 624.41 mGy-cm. Automated exposure control was utilized for the study. A dose lowering technique was utilized adhering to the principles of ALARA. COMPARISON: Prior head CT from November 17, 2023. FINDINGS: Brain: Remote ischemic injuries of the cerebellum. Remote ischemic injury of the right capsule. No hemorrhage. Moderate nonspecific white matter changes. No edema. Ventricles: Moderate ventriculomegaly. Bones/joints: Unremarkable. No acute fracture. Soft tissues: Unremarkable. Sinuses: Unremarkable as visualized. No acute sinusitis. Mastoid air cells: Unremarkable as visualized. No mastoid effusion. IMPRESSION: No evidence of acute intracranial pathology. Electronically signed by: Prabha Loaiza MD 05/23/24 23:36 PM Discharge Plan Visit Data Chief Complaint: Confusion Stated Complaint: Confusion, Fever ED Provider: Jessi Chavez Discharge Problem: Acute confusion, Influenza A Forms Stand Alone Forms: [facility] [place] [facility] Prescriptions Prescriptions: No Action Eliquis 5 mg tablet 5 mg PO BID gabapentin 100 mg capsule 100 mg PO BID levothyroxine 175 mcg tablet 175 mcg PO QAM mirtazapine 30 mg tablet 30 mg PO HS ramelteon 8 mg tablet 8 mg PO HS PRN (Reason: Insomnia) triamcinolone acetonide 0.1 % Cream 1 applic TOPICAL DAILY PRN (Reason: affected areas) esomeprazole magnesium [Nexium] 40 mg Capsule,Delayed Release(Dr/Ec) 40 mg PO Q2D cholecalciferol (vitamin D3) [Vitamin D3] 2,000 unit Tablet 2,000 unit PO QAM gabapentin 600 mg tablet 600 mg PO HS clobetasol 0.05 % Cream 1 applic TOPICAL BID PRN (Reason: ITCHINESS) cyanocobalamin (vitamin B-12) [Vitamin B-12] 1,000 mcg Tablet 1,000 mcg PO QAM duloxetine [Cymbalta] 60 mg Capsule,Delayed Release(Dr/Ec) 60 mg PO QAM albuterol sulfate 2.5 mg /3 mL (0.083 %) Solution For Nebulization 2.5 mg INHALATION Q4H PRN (Reason: COPD/SHORT OF BREATH) budesonide [Pulmicort] 0.5 mg/2 mL Suspension For Nebulization 0.5 mg INHALATION BID aspirin 81 mg Tablet,Chewable 81 mg PO DAILY vitamin B complex Tablet 1 tab PO QAM furosemide 20 mg tablet 40 mg PO QAM oxycodone-acetaminophen [Percocet] 7.5-325 mg Tablet 1 tab PO TID MDD 3 GRAMS APAP/24 HOURS potassium chloride 10 mEq tablet,ER particles/crystals 10 meq PO QAM topiramate 50 mg tablet 50 mg PO BID Rx Instructions: START 11/16/23 FOR 8 DAY, THEN BEGIN 50 MG BID ON 11/24/23. duloxetine 30 mg capsule,delayed release(DR/EC) 30 mg PO .AFTERNOON Rx Instructions: AFTERNOON fluticasone furoate-vilanterol [Breo Ellipta] 100-25 mcg/dose Blister With Device 1 inh INHALATION QAM Afrin (oxymetazoline) 3 spray intranasal BID PRN (Reason: nose bleed) Rx Instructions: if bleeding does not stop in 20-30 mins needs ER. albuterol sulfate 2.5 mg /3 mL (0.083 %) Solution For Nebulization 2.5 mg inhalation BID mupirocin 2 % Ointment 1 applic TOPICAL DIRECTED PRN (Reason: nose bleed) prednisone 10 mg Tablet See Rx Instructions .ROUTE .COMPLEX Qty: 12 0RF Rx Instructions: 10 mg orally 3 times a day for 2 days, then 10 mg twice a day for 2 days, then 10 mg once a day for 2 days, then stop diltiazem HCl 180 mg Capsule,Extended Release 24hr 180 mg PO QAM Qty: 30 0RF levofloxacin 500 mg Tablet 500 mg PO DAILY@1100 Qty: 5 0RF metoprolol succinate 50 mg Tablet Extended Release 24 Hr 50 mg PO QAM Qty: 30 0RF Referrals Referrals: [facility] Nicole [Primary Care Provider] -
[2024-05-23 22:55] LABS: Adenovirus PCR Not Detected (NotDetected); Bordetella parapertussis PCR Not Detected (NotDetected); Bordetella pertussis PCR Not Detected (NotDetected); Chlamydia pneumoniae PCR Not Detected (NotDetected); Coronavirus 229E PCR Not Detected (NotDetected); Coronavirus CoV-2 (COVID19)PCR DETECTED (NotDetected); Coronavirus HKU1 PCR Not Detected (NotDetected); Coronavirus NL63 PCR Not Detected (NotDetected); Coronavirus OC43PCR Not Detected (NotDetected); Human Metapneumovirus PCR Not Detected (NotDetected); Influenza A (H1 2009) PCR DETECTED (NotDetected); Influenza B PCR Not Detected (NotDetected); Mycoplasma pneumoniae PCR Not Detected (NotDetected); Parainfluenza Virus 1 PCR Not Detected (NotDetected); Parainfluenza Virus 2 PCR Not Detected (NotDetected); Parainfluenza Virus 3 PCR Not Detected (NotDetected); Parainfluenza Virus 4 PCR Not Detected (NotDetected); Respiratory Syncytial VirusPCR DETECTED (NotDetected); Rhinovirus/Enterovirus PCR Not Detected (NotDetected)
--- NOTE | 2024-05-23 23:38 | CT Scan Report ---
Exam(s): CT HEAD Without Contrast EXAM: CT Head Without Intravenous Contrast CLINICAL HISTORY: Reason for exam: confusion. TECHNIQUE: Axial computed tomography images of the head/brain without intravenous contrast. CTDI is 37.22 mGy and DLP is 624.41 mGy-cm. Automated exposure control was utilized for the study. A dose lowering technique was utilized adhering to the principles of ALARA. COMPARISON: Prior head CT from November 17, 2023. FINDINGS: Brain: Remote ischemic injuries of the cerebellum. Remote ischemic injury of the right capsule. No hemorrhage. Moderate nonspecific white matter changes. No edema. Ventricles: Moderate ventriculomegaly. Bones/joints: Unremarkable. No acute fracture. Soft tissues: Unremarkable. Sinuses: Unremarkable as visualized. No acute sinusitis. Mastoid air cells: Unremarkable as visualized. No mastoid effusion. IMPRESSION: No evidence of acute intracranial pathology. Electronically signed by: Prabha Loaiza MD 05/23/24 23:36 PM
--- NOTE | 2024-05-23 23:38 | XRay Report ---
Exam(s): XR CXR 1 VIEW EXAM: XR Chest, 1 View CLINICAL HISTORY: Reason for exam: weakness. TECHNIQUE: Frontal view of the chest. COMPARISON: 05/05/2024 FINDINGS: Lungs: Left basilar atelectasis. Otherwise the lungs are clear. Pleural space: No pleural effusion. No pneumothorax. Heart: Unremarkable. No cardiomegaly. Bones/joints: Chronic fracture deformities in the ribs on the left. IMPRESSION: No acute findings in the chest. Electronically signed by: Martin Brar MD 05/23/24 23:37 PM
--- NOTE | 2024-05-23 23:48 | History & Physical Report ---
Date of Service May 23, 2024 Assessment & Plan (1) Influenza A: Plan: 83yo male presenting with acute confusion likely secondary to influenza A infection. Patient febrile. Adequate oyxgenation on room air -Admit to medical -Maintain isolation precautions -Tamiflu 75mg po BID -Symptomatic management with Tylenol PRN -Albuterol PRN Patient's Respiratory Biofire panel POSITIVE for RSV as well as Covid. PCR testing - suspect that these are persistent positives rather than active infection. Patient was POSITIVE for RSV on 05/05/24 and COVID on 05/04/24 (2) Acute confusion: Plan: In setting of influenza infection, dehydration -Management with IVF, Tamiflu -Frequent orientation Plan COPD - no wheezing at present -Continue Budesonide BID -Continue Breo -Albuterol PRN Atrial arrhythmia -Apixaban 5mg po BID -Continue Diltiazem -Continue Metoprolol Hypothyroidism -Continue Synthroid Chronic pain -Continue Gabapentin -Oxycodone PRN GERD -Continue Protonix F/E/N - LR at 100mL/hr x 3L ordered, electrolytes WNL, Regular diet as tolerated Ppx - Continue home Eliquis Code - DNR/DNI Dispo - Admit to medical History of Present Illness Chief Complaint: illness Primary Care Provider: [facility] Dov Mcbride is an 83yo male with history of COPD, GERD and atrial dysrhythmia presenting from [facility] after being found confused. Patient was having a nosebleed. When staff attended to him they noted that he was more confused than normal. Patient had an episode of diarrhea and there was some concern about abdominal distention. Patient with no complaints at present. Denies chest pain, palpitations, abdominal pain, nausea or vomiting at present. Patient was recently admitted to [facility] with acute bronchitis. He was treated with Levaquin and steroids. Allergies Allergy/AdvReac Type Severity Reaction Status Date / Time Penicillins Allergy Severe SEVERE Verified 11/17/23 02:25 SWELLING AND HIVES Sulfa (Sulfonamide Allergy Severe SEVERE Verified 11/17/23 02:25 Antibiotics) SWELLING AND HIVES Home Medications Medication Instructions Recorded Confirmed Type cholecalciferol (vitamin D3) 50 2,000 unit PO QAM 04/12/18 05/24/24 History mcg (2,000 unit) tablet (Vitamin D3) esomeprazole magnesium 40 mg 40 mg PO Q2D 04/12/18 05/24/24 History capsule,delayed release (Nexium) triamcinolone acetonide 0.1 % 1 applic topical DAILY PRN 04/12/18 05/24/24 History topical cream affected areas clobetasol 0.05 % topical cream 1 applic topical BID PRN ITCHINESS 08/28/22 05/24/24 History cyanocobalamin (vitamin B-12) 1,000 mcg PO QAM 08/28/22 05/05/24 History 1,000 mcg tablet (Vitamin B-12) duloxetine 60 mg capsule,delayed 60 mg PO QAM 08/28/22 05/24/24 History release (Cymbalta) gabapentin 600 mg tablet 600 mg PO HS 08/28/22 05/24/24 History apixaban 5 mg tablet (Eliquis) 5 mg PO BID 03/29/23 05/24/24 History gabapentin 100 mg capsule 100 mg PO BID 03/29/23 05/24/24 History levothyroxine 175 mcg tablet 175 mcg PO QAM 03/29/23 05/24/24 History mirtazapine 30 mg tablet 30 mg PO HS 03/29/23 05/24/24 History ramelteon 8 mg tablet 8 mg PO HS PRN Insomnia 03/29/23 05/24/24 History albuterol sulfate 2.5 mg/3 mL 2.5 mg inhalation Q4H PRN 11/17/23 05/24/24 Hi story (0.083 %) solution for nebulization COPD/SHORT OF BREATH aspirin 81 mg chewable tablet 81 mg PO DAILY 11/17/23 05/24/24 History budesonide 0.5 mg/2 mL suspension 0.5 mg inhalation BID 11/17/23 05/24/24 History for nebulization (Pulmicort) duloxetine 30 mg capsule,delayed 30 mg PO .AFTERNOON 11/17/23 05/24/24 History release fluticasone furoate 100 1 inh inhalation QAM 11/17/23 05/24/24 History mcg-vilanterol 25 mcg/dose inhalation powder (Breo Ellipta) furosemide 20 mg tablet 40 mg PO QAM 11/17/23 05/24/24 History oxycodone-acetaminophen 7.5 mg-325 1 tab PO TID 11/17/23 05/24/24 History mg tablet (Percocet) potassium chloride 10 mEq 10 meq PO QAM 11/17/23 05/05/24 History tablet,extended release(part/cryst) topiramate 50 mg tablet 50 mg PO BID 11/17/23 05/24/24 History vitamin B complex 1 tab PO QAM 11/17/23 05/24/24 History Afrin (oxymetazoline) 3 spray intranasal BID PRN nose 05/05/24 05/24/24 History bleed albuterol sulfate 2.5 mg/3 mL 2.5 mg inhalation BID 05/05/24 05/24/24 History (0.083 %) solution for nebulization mupirocin 2 % topical ointment 1 applic topical DIRECTED PRN 05/05/24 05/24/24 History nose bleed diltiazem HCl 180 mg 180 mg PO QAM #30 caps 05/09/24 05/24/24 Rx capsule,extended release 24 hr levofloxacin 500 mg tablet 500 mg PO DAILY@1100 #5 tabs 05/09/24 Rx metoprolol succinate 50 mg 50 mg PO QAM #30 tabs 05/09/24 05/24/24 Rx tablet,extended release 24 hr prednisone 10 mg tablet See Rx Instructions .Route 05/09/24 05/24/24 Rx .COMPLEX #12 tabs Past Med/Surg History Problem List Influenza A (Acute) Acute confusion (Acute) Sinus tachycardia Primary hypothyroidism Opioid dependence Essential hypertension Acute on chronic hypoxic respiratory failure COPD exacerbation Acute bronchitis RSV infection (Acute) Acute dyspnea (Acute) Acute hypoxemic respiratory failure (Acute) Alcohol intoxication (Acute) Elevated brain natriuretic peptide (BNP) level (Acute) Generalized weakness (Acute) Ambulatory dysfunction (Acute) Acute hypoxemic respiratory failure (Acute) Fall from standing (Acute) Vitamin D deficiency Numbness COVID-19 (Acute) COVID (Acute) Weakness (Acute) Hypoxic (Acute) Malaise and fatigue COVID Mixed conductive and sensorineural hearing loss of right ear with restricted hearing of left ear Sensorineural hearing loss (SNHL) Impacted cerumen of both ears History of alcoholism Encounter for pre-operative examination Hearing deficit HEARING AIDS Prostate cancer PROSTATE S/P PROSTATECTOMY; NO CHEMO OR RADIATION Hematoma (Acute 04/10/14) Medical History Atrial dysrhythmia Hx of urinary frequency Hypothyroidism Depression History of cervical fracture C5-C6 CERVICAL FRACTURE 2014 TREATED CONSERVATIVELY Hypertension Hypothyroidism GERD (gastroesophageal reflux disease) CONTROLLED Surgical History History of hernia repair History of esophagogastroduodenoscopy (EGD) 01/14/16= MAC SEDATION AT [facility] Hx of shoulder surgery right Hx of arthroscopic knee surgery ? left Hx of prostatectomy History of colonoscopy Social History Smoking Status: Former smoker Tobacco Type: Cigarettes Cigarettes Per Day: 3; Second Hand Exposure: No; Do You Dip or Chew Tobacco: No; Hx Alcohol Use: No Hx Substance Use: No Preferred Language: Ukrainian Communication Ability: Effective Communication Ability Comment: unsure [employer] Required: No Beliefs That Will Affect Care: None marital status: Single Current Living Situation: [facility] Current Living Situation Comment: Lives at [facility] current occupational status: retired Other Information That Helps Us Care for You: No Feels Safe at Home: Yes Safety Concerns: Feels Safe At This Time Assistive Devices: Walker Review of Systems Review of Systems: All systems reviewed & are unremarkable except as noted in HPI & below Physical Exam Physical Exam: General: patient AA&O to self, confused to location and date. NAD Skin: warm, dry, intact, no rashes or lesions HEENT: NC/AT, PERRL, EOMI, anicteric sclera, conjunctiva without injection, external ear normal to inspection and nontender, nares patent, DRY mucus membranes, dentition intact, no oropharyngeal lesions, neck supple, trachea midline, no LAD, no thyromegaly, no JVD Heart: +S1/S2, irregularly irregular, no m/r/g Lungs: equal air entry bilaterally, no rales/rhonchi/wheezes Abd: +BS, soft, NT/ND, no masses/organomegaly/ascites Ext: warm, 2+ pulses in UE/LE bilaterally, no clubbing/cyanosis or edema Neuro:inattentive, confused but able to answer questions and follow commands. Results & Data Results & Data Vital Signs (Past 12 Hours) Vital Signs Temp Pulse Resp BP Pulse Ox O2 Del Method O2 Flow Rate 05/23/24 23:00 83 18 103/74 92 05/23/24 22:43 81 19 115/84 91 05/23/24 22:30 92 H 20 92/76 L 90 05/23/24 22:00 82 22 102/72 92 05/23/24 21:42 93 H 24 115/77 92 05/23/24 21:42 88 22 93 Room Air 0 05/23/24 21:39 92 H 125/80 91 05/23/24 21:00 99 H 22 120/96 92 05/23/24 20:57 93 Room Air 0 05/23/24 20:55 38.0 C H 94 H 20 123/88 91 Room Air 05/23/24 20:47 93 H 22 123/88 94 05/23/24 20:46 107 H Laboratory Results Laboratory Results WBC 8.62 K/ul (4.8-10.8) 05/23/24 20:52 RBC 4.97 M/uL (4.70-6.10) 05/23/24 20:52 Hgb 15.7 g/dl (14.0-18.0) 05/23/24 20:52 Hct 45.9 % (42.0-52.0) 05/23/24 20:52 MCV 92.4 fL (80.0-100.0) 05/23/24 20:52 MCH 31.6 pg (25.0-34.0) 05/23/24 20:52 MCHC 34.2 g/dL (32.0-36.0) 05/23/24 20:52 RDW Std Deviation 41.7 fL (36.4-46.3) 05/23/24 20:52 RDW Coeff of Edward 12.3 % (11.5-14.5) 05/23/24 20:52 Plt Count 203 K/uL (130-400) 05/23/24 20:52 MPV 10.1 fL (9.4-12.4) 05/23/24 20:52 Immature Gran % (Auto) 0.2 % 05/23/24 20:52 Neut % (Auto) 71.3 % 05/23/24 20:52 Lymph % (Auto) 9.4 % 05/23/24 20:52 Patrick % (Auto) 18.1 % 02/07/25 20:52 Eos % (Auto) 0.7 % 05/23/24 20:52 Baso % (Auto) 0.3 % 05/23/24 20:52 Neut # (Auto) 6.14 K/uL (1.40-6.50) 05/23/24 20:52 Lymph # (Auto) 0.81 K/uL (1.20-3.40) L 05/23/24 20:52 Patrick # (Auto) 1.56 K/uL (0.11-0.59) H 05/23/24 20:52 Eos # (Auto) 0.06 K/uL (0.00-0.50) 05/23/24 20:52 Baso # (Auto) 0.03 K/uL (0.00-0.20) 05/23/24 20:52 Immature Gran # (Auto) 0.02 K/uL (0.01-0.20) 05/23/24 20:52 PT 12.7 Seconds (9.0-12.0) H 05/23/24 20:52 INR 1.2 (0.9-1.1) H 05/23/24 20:52 Sodium 135 mmol/L (136-145) L 05/23/24 20:52 Potassium 4.2 mmol/L (3.5-5.1) 05/23/24 20:52 Chloride 103 mmol/L (98-107) 05/23/24 20:52 Carbon Dioxide 20 mmol/L (21-32) L 05/23/24 20:52 Anion Gap 12 (3-11) H 05/23/24 20:52 BUN 21 mg/dl (6-23) 05/23/24 20:52 Creatinine 1.13 mg/dl (0.6-1.4) 05/23/24 20:52 Est Cr Clr Drug Dosing 59.7 ml/min 05/23/24 20:52 eGFR 64.49 05/23/24 20:52 BUN/Creatinine Ratio 18.6 (10-20) 05/23/24 20:52 Glucose 138 mg/dl (70-99(Fasting)) H 05/23/24 20:52 Lactate 1.2 mmol/L (0.4-2.0) 05/23/24 21:20 Calcium 8.8 mg/dl (8.6-10.3) 05/23/24 20:52 Magnesium 2.2 mg/dl (1.7-2.4) 05/23/24 20:52 Total Bilirubin 0.8 mg/dl (0.2-1.0) 05/23/24 20:52 AST 21 U/L (13-39) 05/23/24 20:52 ALT 12 U/L (7-52) 05/23/24 20:52 Alkaline Phosphatase 75 U/L (34-104) 05/23/24 20:52 Troponin I High Sens 15.4 pg/ml (0-20) 05/23/24 20:52 Total Protein 7.3 gm/dl (6.0-8.3) 05/23/24 20:52 Albumin 3.8 gm/dl (3.4-5.0) 05/23/24 20:52 Globulin 3.5 gm/dl (2.5-4.0) 05/23/24 20:52 Albumin/Globulin Ratio 1.1 (0.9-2) 05/23/24 20:52 Procalcitonin 0.03 ng/ml (0-0.5) 05/23/24 20:52 TSH 0.614 uIu/ml (0.300-4.500) 05/23/24 20:52 Urine Color Dark Yellow 05/24/24 02:00 Urine Appearance Clear (Clear) 05/24/24 02:00 Urine pH 6.0 (4.5-7.5) 05/24/24 02:00 Ur Specific Colton 1.018 (1.000-1.030) 05/24/24 02:00 Urine Protein Negative (Negative) 05/24/24 02:00 Urine Glucose (UA) Negative (Negative) 05/24/24 02:00 Urine Ketones Trace (Negative) H 05/24/24 02:00 Urine Blood Negative (Negative) 05/24/24 02:00 Urine Nitrite Negative (Negative) 05/24/24 02:00 Urine Bilirubin Negative (Negative) 05/24/24 02:00 Urine Urobilinogen Negative (Negative) 05/24/24 02:00 Ur Leukocyte Esterase Negative (Negative) 05/24/24 02:00 Nasal Influ A H1 2009 PCR DETECTED (NotDetected) A 05/23/24 21:20 Adenovirus (PCR) Not Detected (NotDetected) 05/23/24 21:20 B. pertussis DNA (PCR) Not Detected (NotDetected) 05/23/24 21:20 B.parapertussis DNA PCR Not Detected (NotDetected) 05/23/24 21:20 C. pneumoniae DNA (PCR) Not Detected (NotDetected) 05/23/24 21:20 Coronavirus OC43 (PCR) Not Detected (NotDetected) 05/23/24 21:20 Coronavirus HKU1 (PCR) Not Detected (NotDetected) 05/23/24 21:20 Coronavirus 229E (PCR) Not Detected (NotDetected) 05/23/24 21:20 SARS-CoV-2 (PCR) DETECTED (NotDetected) A 05/23/24 21:20 Coronavirus NL63 (PCR) Not Detected (NotDetected) 05/23/24 21:20 Human Metapneumovir PCR Not Detected (NotDetected) 05/23/24 21:20 Influenza Type B (PCR) Not Detected (NotDetected) 05/23/24 21:20 M. pneumoniae (PCR) Not Detected (NotDetected) 05/23/24 21:20 Parainfluenza 1 (PCR) Not Detected (NotDetected) 05/23/24 21:20 Parainfluenza 2 (PCR) Not Detected (NotDetected) 05/23/24 21:20 Parainfluenza 3 (PCR) Not Detected (NotDetected) 05/23/24 21:20 Parainfluenza 4 (PCR) Not Detected (NotDetected) 05/23/24 21:20 RSV (PCR) DETECTED (NotDetected) A 05/23/24 21:20 Entero/Rhino (PCR) Not Detected (NotDetected) 05/23/24 21:20 Impressions Chest X-Ray 05/23/24 21:12 Exam(s): XR CXR 1 VIEW EXAM: XR Chest, 1 View CLINICAL HISTORY: Reason for exam: weakness. TECHNIQUE: Frontal view of the chest. COMPARISON: 05/05/2024 FINDINGS: Lungs: Left basilar atelectasis. Otherwise the lungs are clear. Pleural space: No pleural effusion. No pneumothorax. Heart: Unremarkable. No cardiomegaly. Bones/joints: Chronic fracture deformities in the ribs on the left. IMPRESSION: No acute findings in the chest. Electronically signed by: Martin Brar MD 05/23/24 23:[address] 05/23/24 21:12 Exam(s): CT HEAD Without Contrast EXAM: CT Head Without Intravenous Contrast CLINICAL HISTORY: Reason for exam: confusion. TECHNIQUE: Axial computed tomography images of the head/brain without intravenous contrast. CTDI is 37.22 mGy and DLP is 624.41 mGy-cm. Automated exposure control was utilized for the study. A dose lowering technique was utilized adhering to the principles of ALARA. COMPARISON: Prior head CT from November 17, 2023. FINDINGS: Brain: Remote ischemic injuries of the cerebellum. Remote ischemic injury of the right capsule. No hemorrhage. Moderate nonspecific white matter changes. No edema. Ventricles: Moderate ventriculomegaly. Bones/joints: Unremarkable. No acute fracture. Soft tissues: Unremarkable. Sinuses: Unremarkable as visualized. No acute sinusitis. Mastoid air cells: Unremarkable as visualized. No mastoid effusion. IMPRESSION: No evidence of acute intracranial pathology. Electronically signed by: Prabha Loaiza MD 05/23/24 23:36 PM PG Care Time/CCT Total # of Minutes Spent Total Time Spent with Patient: Total time spent is greater than 50% in coordination of care (as documented) at patient's floor/unit and/or counseling patient: Coding Level of Care Code 89311 INT INP/OBS CARE 2/55MIN Diagnoses Influenza A J10.1 Acute confusion R41.0
[2024-05-24] MEDS ORDERED: ONDANSETRON INJ 2 MG/ML 2 ML VIAL IV PRN (01:49)
[2024-05-24] MEDS ORDERED: ACETAMINOPHEN 325 MG TAB PO PRN (01:49)
[2024-05-24] MEDS: LACTATED RINGER'S 1,000 ML IV SCH (02:13)
[2024-05-24] MEDS ORDERED: ALBUTEROL 0.083% NEBU SOLN 3 ML VIAL INH PRN (02:57)
[2024-05-24 03:04] LABS: Appearance Urine Clear (Clear); Bilirubin Urine Negative (Negative); Blood Urine Negative (Negative); Color Urine Dark Yellow; Glucose Urine UA Negative (Negative); Ketones Urine Trace (Negative); Leukocyte Esterase Urine Negative (Negative); Nitrite Urine Negative (Negative); Protein Urine Negative (Negative); Specific Gravity Urine 1.018 (1.000-1.030); Urobilinogen Urine Negative (Negative)
[2024-05-24] MEDS: OSELTAMIVIR PHOSPHATE 75 MG CAP PO STA (05:28)
[2024-05-24] MEDS: LEVOTHYROXINE SODIUM 175 MCG TABLET PO SCH (05:28)
[2024-05-24 06:45] LABS: Hematocrit (blood only) 46.2 % (42.0-52.0); Hemoglobin 15.4 g/dl (14.0-18.0); Mean Corpuscular Hemoglobin 31.2 pg (25.0-34.0); Mean Corpuscular Hgb Conc 33.3 g/dL (32.0-36.0); Mean Corpuscular Volume 93.7 fL (80.0-100.0); Mean Platelet Volume 9.9 fL (9.4-12.4); Platelet Count 172 K/uL (130-400); RDW Coefficient of Variation 12.5 % (11.5-14.5); RDW Standard Deviation 43.2 fL (36.4-46.3); Red Blood Count 4.93 M/uL (4.70-6.10); White Blood Count 5.58 K/ul (4.8-10.8)
[2024-05-24 07:11] VITALS: BP 139/82; RESP 18; TEMP 97.3
[2024-05-24 07:13] LABS: BUN Creatinine Ratio 19.6 (10-20); Calcium 9.1 mg/dl (8.6-10.3); Creatinine Clr Calc Pharmacy 70.6 ml/min; Potassium 4.2 mmol/L (3.5-5.1)
[2024-05-24] MEDS: BUDESONIDE 0.5 MG/2 ML VIAL (PULMICORT) INH SCH (08:02)
[2024-05-24] MEDS: ALBUTEROL 0.083% NEBU SOLN 3 ML VIAL INH SCH (08:02)
[2024-05-24 08:03] VITALS: PULSE 90; O2SAT 93
[2024-05-24] MEDS: ASPIRIN 81 MG ECTAB PO SCH (08:26)
[2024-05-24] MEDS: PANTOprazole 40 MG TAB PO SCH (08:26)
[2024-05-24] MEDS: APIXABAN 5 MG TABLET PO SCH (08:26)
[2024-05-24] MEDS: DULoxetine HCL 60 MG CAP PO SCH (08:26)
[2024-05-24] MEDS: METOPROLOL SUCC 50MG EXT REL TAB PO SCH (08:26)
[2024-05-24] MEDS: dilTIAZem HCL 180 MG CAPCR PO SCH (08:26)
[2024-05-24] MEDS: GABAPENTIN 100 MG CAP PO SCH (08:26)
[2024-05-24] MEDS: FLUTICASONE/VILANTEROL 100/25MCG 14 PUFFS/INHALER INH SCH (08:27)
[2024-05-24] MEDS: TOPIRAMATE 50 MG TAB PO SCH (08:27)
[2024-05-24] MEDS: oxyCODONE/APAP 7.5/325MG TAB PO SCH (08:47)
[2024-05-24] MEDS: DULoxetine HCL 30 MG CAP PO SCH (14:29)
--- NOTE | 2024-05-24 15:04 | Discharge Summary ---
Discharge Summary Date of Service May 24, 2024 Principal Dx & Hospital Course #1 = Principal Diagnosis (1) Influenza A: Patient remains afebrile with no complaints of chills, diaphoresis, rhinorrhea, otorrhea, myalgias, arthralgias, cough, wheeze, shortness of breath, dyspnea on exertion, headaches, dizziness, lightheadedness, visual changes, hearing changes, somnolence, agitation, anxiety, nausea, vomiting, diarrhea, abdominal pain, pelvic pain, or flank pain. Patient reports that he had NO complaints at [facility] ([place], [place]) on 05/23/2024 which would have prompted nursing staff at [facility] to send patient to [facility] ER on 05/23/2024 for further evaluation. Patient was subsequently placed in OBSERVATION on the hospitalist service @ [facility] on 05/23/2024 with the following diagnoses: 1. Acute influenza A infection, acute COVID infection, acute RSV infection. Patient was maintained under contact and airborne precautions while in [facility]. Patient will not continue contact and airborne precautions on hospital discharge back to [facility] on 05/24/2024. Patient received oseltamivir 75mg PO x 1 dose (05/24/2024, 4:03am) while in [facility]. Patient will not continue with this medication on hospital discharge as patient points out: "Why do I have to take a medicine like that when I don't have any symptoms? I didn't have any complaints at [facility]. I did not ask to be sent to [facility] ER. I did not ask to be hospitalized. I feel fine. I want to go back to [facility] now. Thank you very much." I concur. Of note, patient has been diagnosed with COVID in the past (08/28/2022, 3:41pm; 05/04/2024, time unknown) and with RSV in the past (05/04/2024, time unknown). (2) Acute confusion: Patient displays no confusion at all on 05/24/2024. Observe. Plan 3. Past medical history of COPD - Asymptomatic with no complaints of cough, wheeze, SOB, ALEJANDRO, or pleurisy. O2 sat 94% on room air (05/23/2024, 8:47pm, [facility] ER). O2 sat 93% on room air (05/24/2024, 8:03am, [facility] Tele bed #[id number]). Hence, patient did not receive supplemental oxygen or steroids (e.g., prednisone or solumedrol) while in [facility]. Observe on patient's home-scheduled albuterol neb 2.5mg in 3mL NS neb q4 prn SOB/wheeze, fluticasone 100ug - vilanterol 25ug/puff, 1 puff PO qam, and budesonide 0.5mg neb bid. 4. Past medical history of paroxysmal AFIB. cf., EKG (05/23/2024, 9:16pm): AFIB @ 94, QTC 440, Q in V1, V2; no TWI; no acute ST depressions/elevations (by my review). Asymptomatic. Observe on patient's home-scheduled medications including diltiazem 180mg PO daily, metoprolol 50mg PO daily, and apixaban 5mg PO bid. 5. Past medical history of chronic diastolic CHF with preserved LVEF 55-60%, g rade II LV diastolic dysfunction, and "speckled pattern myocardium with significant LVH raises the possibility of cardiac amyloidosis." (as reported on 10/09/2023, 12:42pm TTE, CARDS Dr. Nahun Avila). Asymptomatic. Observe on patient's home-scheduled lasix 40mg PO qam, diltiazem 180mg PO daily, and metoprolol 50mg PO daily. When I asked the patient if he wants to pursue a workup for "speckled pattern myocardium with significant LVH raises the possibility of cardiac amyloidosis." (as reported on 10/09/2023, 12:42pm TTE, CARDS Dr. Nahun Avila), patient stated, "What for? I am 83 years old." 6. 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 When I asked the patient if he wants to pursue a workup for the radiographic findings noted on 02/29/2024, 12:00pm CT abd/pelvis with IV contrast, patient stated, "What for? I am 83 years old." 7. Past medical history of hypothyroidism. Patient has no goiter, lid lag, or proptosis on exam. Patient appears to be euthyroid on synthroid 175ug PO daily with normal screening TSH 0.614 uIU/mL (05/23/2024, 8:52pm). 8. Past medical history of GERD. Asymptomatic. Observe on patient's home- scheduled esomeprazole 40mg PO daily. 9. Past medical history of major depression. Asymptomatic. Observe on patient's home-scheduled duloxetine 60mg PO qam, duloxetine 30mg PO qafternoon, and mirtazapine 30mg PO qhs. 10.Past medical history of insomnia disorder. Asymptomatic. Observe on patient's home-scheduled ramelteon 8mg PO qhs prn insomnia and topiramate 50mg PO bid. 11.Past medical history of chronic pain disorder. Asymptomatic. Observe on patient's home-scheduled gabapentin 100mg PO bid and gabapentin 600mg PO qhs. 12.Code status remains unchanged @ DNR/DNI @ [facility], and @ [facility] Tele bed #[id number] (05/23/2024 - 05/24/2024), and on hospital discharge back to [facility] on 05/24/2024. Discharge time, 35 minutes. Of this time period, 18 minutes were spent in coordinating patient's discharge. Admission HPI Per Admitting Provider Dov Mcbride is an 83yo male with history of COPD, GERD and atrial dysrhythmia presenting from [facility] after being found confused. Patient was having a nosebleed. When staff attended to him they noted that he was more confused than normal. Patient had an episode of diarrhea and there was some concern about abdominal distention. Patient with no complaints at present. Denies chest pain, palpitations, abdominal pain, nausea or vomiting at present. Patient was recently admitted to [facility] with acute bronchitis. He was treated with Levaquin and steroids. Discharge Exam Constitutional General: comfortable, coherent, cooperative. Wide awake and alert. Not confused, lethargic, or obtunded. Patient speaks in complete, fluent, and articulate sentences without pause, interruption, cough, or wheeze. HEENT: NC/AT. EOMI, PERRL. No nystagmus, gaze paresis, anisocoria, miosis, mydriasis, hyphema, chemosis, scleral icterus, conjunctivitis, or pterygium. No otorrhea, no rhinorrhea. No pharyngeal discharge or erythema. Neck: Supple, no stridor, bruit, goiter, or hepatojugular reflux. Jugular venous pressure is estimated to be 8 cm above the sternal angle of Joce, which is typically 5 cm above the level of the right atrium. Hence, there is no jugular venous distention noted on 05/24/2024. Lymphatics: No pre-post auricular, anterior/posterior cervical, supraclavicular/infraclavicular, axillary, epitrochlear, or inguinal adenopathy. Chest: Symmetric rise and fall with respirations. Non-tender to palpation. Heart: RRR, S1 and S2 noted. No S3 or S4 summation gallop noted. No tripartite friction rub. Grade II/ early systolic murmur @ LLSB without radiation to the carotids, axilla, or back, and which remains invariant in regards to the respiratory cycle. Lungs: Clear to auscultation and percussion. No audible expiratory wheeze, egophony, pectoriloquy, increase in tactile fremitus, or flatness/dullness to percussion at the bases. 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 No rebound, guarding, Baxter's sign, or organomegaly. Bowel sounds auscultated in all 4 quadrants. Extremities: No clubbing, cyanosis, or edema. 2+ pedal pulses bilaterally. Skin: No exanthem or enanthem or decubitus ulcer. Neurology: Alert and oriented in regards to person, place, time, and situation. DTR+ and symmetric. 5/5 motor strength in all 4 extremities, both proximally and distally. No myoclonus, tremors, or tics. Urology: No sierra catheter. No urethral discharge. Psychiatry: Appropriate affect. Smiles occasionally. No homicidal/suicidal ideation. Discharge Plan Discharge Items Patient Disposition: Personal Nursing Home Reason For Visit: INFLUENZA, CONFUSION Discharge Diagnosis: Acute influenza A, COVID, and RSV infection Condition on Discharge: Fair Activity: Resume your previous activity Lifting: No more than 5 pounds Exercise/Sports: None Non-emergency contact: Primary Care Provider Call non-emergency contact if: you have any medication questions Follow-up/Referrals: Magaly Nicole [Primary Care Provider] - Diet: Heart Healthy, Low Fat and Low Sodium (2gm) Addtl Attending Provider Instructions: See your family doctor within 7 days of hospital discharge. Pending Studies at Discharge: No Stand-Alone Forms: My Orbiter, Smoking Cessation Skilled Items Patient informed of condition?: Yes DNR: Yes Discharge Level of Care: Skilled Communicable Disease: Yes Discharge Prognosis: Stable Lines: None Urinary Catheter: No Medications and DC Order Prescriptions: Continued Eliquis 5 mg tablet 5 mg PO BID gabapentin 100 mg capsule 100 mg PO BID levothyroxine 175 mcg tablet 175 mcg PO QAM mirtazapine 30 mg tablet 30 mg PO HS ramelteon 8 mg tablet 8 mg PO HS PRN (Reason: Insomnia) triamcinolone acetonide 0.1 % Cream 1 applic TOPICAL DAILY PRN (Reason: affected areas) esomeprazole magnesium [Nexium] 40 mg Capsule,Delayed Release(Dr/Ec) 40 mg PO Q2D cholecalciferol (vitamin D3) [Vitamin D3] 2,000 unit Tablet 2,000 unit PO QAM gabapentin 600 mg tablet 600 mg PO HS clobetasol 0.05 % Cream 1 applic TOPICAL BID PRN (Reason: ITCHINESS) cyanocobalamin (vitamin B-12) [Vitamin B-12] 1,000 mcg Tablet 1,000 mcg PO QAM duloxetine [Cymbalta] 60 mg Capsule,Delayed Release(Dr/Ec) 60 mg PO QAM albuterol sulfate 2.5 mg /3 mL (0.083 %) Solution For Nebulization 2.5 mg INHALATION Q4H PRN (Reason: COPD/SHORT OF BREATH) budesonide [Pulmicort] 0.5 mg/2 mL Suspension For Nebulization 0.5 mg INHALATION BID aspirin 81 mg Tablet,Chewable 81 mg PO DAILY vitamin B complex Tablet 1 tab PO QAM furosemide 20 mg tablet 40 mg PO QAM oxycodone-acetaminophen [Percocet] 7.5-325 mg Tablet 1 tab PO TID MDD 3 GRAMS APAP/24 HOURS potassium chloride 10 mEq tablet,ER particles/crystals 10 meq PO QAM topiramate 50 mg tablet 50 mg PO BID Rx Instructions: START 11/16/23 FOR 8 DAY, THEN BEGIN 50 MG BID ON 11/24/23. duloxetine 30 mg capsule,delayed release(DR/EC) 30 mg PO .AFTERNOON Rx Instructions: AFTERNOON fluticasone furoate-vilanterol [Breo Ellipta] 100-25 mcg/dose Blister With Device 1 inh INHALATION QAM Afrin (oxymetazoline) 3 spray intranasal BID PRN (Reason: nose bleed) Rx Instructions: if bleeding does not stop in 20-30 mins needs ER. albuterol sulfate 2.5 mg /3 mL (0.083 %) Solution For Nebulization 2.5 mg inhalation BID mupirocin 2 % Ointment 1 applic TOPICAL DIRECTED PRN (Reason: nose bleed) diltiazem HCl 180 mg Capsule,Extended Release 24hr 180 mg PO QAM Qty: 30 0RF metoprolol succinate 50 mg Tablet Extended Release 24 Hr 50 mg PO QAM Qty: 30 0RF Discontinued prednisone 10 mg Tablet See Rx Instructions .ROUTE .COMPLEX Qty: 12 0RF Rx Instructions: 10 mg orally 3 times a day for 2 days, then 10 mg twice a day for 2 days, then 10 mg once a day for 2 days, then stop levofloxacin 500 mg Tablet 500 mg PO DAILY@1100 Qty: 5 0RF Discharge Orders: Discharge Order (Routine); Ordered 05/24/24 Ordered By: Abhay Naik Discharge Order- CHF (Routine); Ordered 05/24/24 Ordered By: Abhay Naik Admission Data Admit Date/Time: 05/23/24 23:46 Attending Provider: Abhay Naik Admit Provider: Florecita Bhatt Primary Care Provider: Magaly Nicole Other Providers: Florecita Bhatt Hospital Stay Data Consultations 05/23/24 23:19 ED Decision to Admit Stat Diagnostic Imagining Performed 05/23/24 21:12 CT head/brain wo con Stat Pending Results Patient Have Any Pending Studies at Discharge: No Discharge Instructions Given to Patient (Per Discharging Provider) See your family doctor within 7 days of hospital discharge. Total Time Total Time Spent Total Time Spent (In Minutes): 35 minutes. Coding Level of Care Code 45867 INP/OBS DISCH >30 MIN Diagnoses Influenza A J10.1 Acute confusion R41.0
[2024-05-24] MEDS ORDERED: MIRTAZAPINE TAB 15 MG TAB PO SCH (21:00)
[2024-05-24] MEDS ORDERED: GABAPENTIN 600 MG TAB PO SCH (21:00)
[2024-05-24] MEDS ORDERED: OSELTAMIVIR PHOSPHATE 75 MG CAP PO SCH (21:00)
--- NOTE | 2024-05-27 06:08 | Electrocardiogram Report ---
Test Reason : Blood Pressure : */* mmHG Vent. Rate : 94 BPM Atrial Rate : * BPM P-R Int : * ms QRS Dur : 86 ms QT Int : 352 ms P-R-T Axes : * -1 49 degrees QTcB Int : 440 ms Atrial fibrillation Septal infarct (cited on or before 17-Nov-2023) Abnormal ECG When compared with ECG of 05-May-2024 06:54, Atrial fibrillation has replaced Sinus rhythm Confirmed by Rajendra Blackman ([id number]) on 05/27/2024 6:07:54 AM Referred By: Magaly Nicole Confirmed By: Rajendra Blackman
== END 2024-05-24 16:52 | disposition home or self-care (01) ==
LOC: ED 20:42 → 3E 20:42 → SUATTDRO 23:46 → 3E 05-24 01:36

== ENCOUNTER 2025-01-22 11:13 | Inpatient (IN) ==
[2025-01-22 12:38] LABS: Hematocrit (blood only) 54.6 % (42.0-52.0); Hemoglobin 18.2 g/dl (14.0-18.0); Immature Granulocytes # (auto) 0.04 K/uL (0.01-0.20); Immature Granulocytes % (auto) 0.3 %; Mean Corpuscular Hemoglobin 30.0 pg (25.0-34.0); Mean Corpuscular Volume 90.1 fL (80.0-100.0); Platelet Count 269 K/uL (130-400); RDW Standard Deviation 44.7 fL (36.4-46.3); Red Blood Count 6.06 M/uL (4.70-6.10); White Blood Count 12.23 K/ul (4.8-10.8)
[2025-01-22 12:53] LABS: Alanine Aminotransferase 11.0 U/L (7-52); Albumin Globulin Ratio 1.0 (0.9-2); Albumin Level 3.6 gm/dl (3.4-5.0); Alkaline Phosphatase 88.0 U/L (34-104); Anion Gap 10.0 (3-11); Bilirubin,Total 0.7 mg/dl (0.2-1.0); Blood Urea Nitrogen 23.0 mg/dl (6-23); Calcium 9.6 mg/dl (8.6-10.3); Carbon Dioxide 24.0 mmol/L (21-32); Chloride 106.0 mmol/L (98-107); Creatinine Clr Calc Pharmacy 62.1 ml/min; Globulin 3.7 gm/dl (2.5-4.0); Glucose 272.0 mg/dl (70-99(Fasting)); Lipase 10.0 U/L (11-82); Potassium 4.0 mmol/L (3.5-5.1); Sodium 140.0 mmol/L (136-145); Total Protein 7.3 gm/dl (6.0-8.3)
--- NOTE | 2025-01-22 13:03 | XRay Report ---
XR chest 2V PA/lateral CLINICAL HISTORY: sob COMPARISON STUDY: 05/23/2024 FINDINGS: Stable cardiomegaly without pulmonary vascular congestion. Inspiration is shallow. There is interval mild stranding at the right lung base. No other consolidation or pleural effusion seen. No pneumothorax. Stable old left rib fractures. IMPRESSION: Atelectasis versus early pneumonia right lung base. ACT 112: Negative or not required by law. Electronically signed by: Sergio Kelly M.D. 01/22/2025 1:02 PM
[2025-01-22 13:06] LABS: INR 1.1 (0.9-1.1); Partial Thromboplastin Time 29 Seconds (21-31); Prothrombin Time 11.9 Seconds (9.0-12.0)
[2025-01-22] MEDS: OPTIRAY 320 100ml IV ONE (13:18)
--- NOTE | 2025-01-22 13:21 | Emergency Department Note ---
Impression & Plan Lower gastrointestinal hemorrhage, Pneumonia ED Provider Note CHIEF COMPLAINT: vomiting, diarrhea HISTORY OF PRESENTING ILLNESS: Patient is an 84-year-old male who presents to the emergency department today from [facility] for complaints of vomiting and diarrhea. [facility] staff was unable to further history on the appearance of the patient's vomit or stool. He states that this started last night and got worse this morning. The patient is on Eliquis. The patient is unable to provide an accurate history due to a known cognitive development. He does have a history of sinus tachycardia, hypoxic respiratory failure, COPD, alcohol abuse, elevated BNP, frequent falls, CVA. Patient denies chest pain, sob, breathing difficulties, abdominal pain, headache, fevers/chills, blood in stool or urine, any recent illness, or any recent travel. REVIEW OF SYSTEMS: See HPI for pertinent positives and pertinent negatives. ALLERGIES: See below MEDICATIONS: See below PAST MEDICAL HISTORY: See below PHYSICAL EXAM: VITALS: Vitals are noted on the nurse's note and reviewed by myself. GENERAL: Non toxic, in no acute distress, non-diaphoretic. SKIN: Capillary refill <2 sec. EYES: PERRLA. EOMI. Conjunctivae without injection, sclerae without icterus. MOUTH: Dark-colored emesis is noted around the patient's mouth. Mucous membranes moist. Uvula midline. Airway patent. NECK: Supple without nuchal rigidity. HEART: Regular rate and rhythm without murmurs gallops or rubs. LUNGS: Clear to auscultation bilaterally without wheezes, rales or rhonchi. No retractions or accessory muscle use. ABDOMEN: Positive bowel sounds x 4. Normal tympanic percussion. Soft, nontender to palpation. Mildly distended abdomen. No masses or hepatosplenomegaly. Baxter sign negative. No CVA tenderness. No guarding, rigidity, or rebound tenderness. No focal RLQ or LLQ tenderness. MUSCULOSKELETAL: No gross musculoskeletal defects. NEURO: Patient was alert and oriented. No focal neurological deficits. DIFFERENTIAL DIAGNOSIS: Differential diagnosis includes appendicitis, diverticulitis, constipation, gastroenteritis, bowel obstruction, cholecystitis, appendicitis, inflammatory bowel disease, renal colic, PUD, biliary pathology, pancreatitis, mesenteric ischemia, aortic pathology, infection, genitourinary, UTI, perforated viscus, among others. ED COURSE AND MEDICAL DECISION MAKING: HISTORY FROM INDEPENDENT HISTORIAN: History was provided by the patient. MONITOR: Continuous environmental monitoring technician: Order was placed for continuous environmental monitoring technician. Patient was placed on the environmental monitoring technician and continuous pulse ox. Patient was noted to be in normal sinus rhythm at an initial rate of 82 bpm per my interpretation. EKG: EKG was interpreted by myself as sinus rhythm with a first-degree AV block at a rate of 84 bpm. INTERPRETATION OF LABS: I interpreted the labs with full lab results as below in the lab section of this note. Laboratory results pertinent to the emergent complaint are discussed in the MDM section below. The patient was advised to follow up with their PCP and/or specialist(s) for further outpatient monitoring and management of any abnormal results. INTERPRETATION OF IMAGING: Imaging studies were interpreted by myself and read by radiology as per the imaging section of this note. The patient was advised to follow up with their PCP and/or specialist(s) for further outpatient management of any non-emergent abnormal findings. CHRONIC MEDICAL/SOCIAL CONDITIONS AFFECTING CARE: No social concerns were identified as barriers to patients care. EXTERNAL RECORDS REVIEWED: Patient's previous admission history and physical from 05/23/2024. ESCALATION OF CARE CONSIDERED: I considered admission on this patient due to pneumonia, GI bleed. CONSULTATIONS: I had a meaningful discussion about this patient with Dr. Ham who agrees with my assessment and the treatment plan. I spoke with Dr. Kinney for admission. Patient was accepted. SUMMARY: I examined the patient for complaints of vomiting and diarrhea. A physical exam and history were performed. Nursing notes, EMR, and medication list were personally reviewed. Hemoccult was positive. CBC showed a mild leukocytosis with a white blood cell count of 12.23. No anemia or thrombocytopenia. PT/INR and APTT were normal. CMP showed no emergent findings. Troponin was 8.8. Lipase was 10. Urinalysis was negative for nitrates, trace amount of leukocytes, no bacteria. Chest x-ray showed a possible early pneumonia to the right lung base. CT of the abdomen and pelvis showed enteritis without bowel obstruction. Patient declined any pain medications or antiemetics here today. I consulted with Dr. Kinney for admission to the hospital. Nursing was able to contact Magaly who relayed that the patient is alert and oriented at baseline. However, he does have a history of alcoholism and when he starts to act like this, he typically has snuck alcohol in and drank. A medical alcohol level and CT of the head was ordered and both pending on admission. A BNP was also pending. Hospitalist made aware. The patient is to have close outpatient follow-up with a recheck of their symptoms. To return to the ER sooner for any significantly changing or worsening symptoms. The patient was educated on the treatment plan and the discharge instructions. The patient was discharged home in stable condition and verbalized understanding of all discharge instructions and treatment plan. DIAGNOSIS: pneumonia, GI bleed TREATMENT PLAN/DISCHARGE INSTRUCTIONS: Admit to hospitalist services The chart was completed utilizing [employer] voice recognition software.Grammatical errors, random word insertions, pronoun errors, and incomplete sentences are an occasional consequence of this system due to software limitations, ambient noise, and hardware issues.Any formal questions or concerns about the content, text, or information contained within the body of this dictation should be directly addressed to the physician for clarification. Past Med/Surg History Problem List (Updated 01/22/25 @ 14:30 by LEIGH Blanchard) Pneumonia (Acute) Lower gastrointestinal hemorrhage (Acute) Pneumonia GI bleed Influenza A (Acute) Acute confusion (Acute) Sinus tachycardia Acute on chronic hypoxic respiratory failure COPD exacerbation Alcohol intoxication (Acute) Elevated brain natriuretic peptide (BNP) level (Acute) Generalized weakness (Acute) Ambulatory dysfunction (Acute) Acute hypoxemic respiratory failure (Acute) Fall from standing (Acute) Vitamin D deficiency Numbness COVID-19 (Acute) COVID (Acute) Weakness (Acute) Hypoxic (Acute) Malaise and fatigue COVID Mixed conductive and sensorineural hearing loss of right ear with restricted hearing of left ear Sensorineural hearing loss (SNHL) Impacted cerumen of both ears History of alcoholism Encounter for pre-operative examination Hearing deficit HEARING AIDS Prostate cancer PROSTATE S/P PROSTATECTOMY; NO CHEMO OR RADIATION Hematoma (Acute 07/24/13) Medical History Primary hypothyroidism Opioid dependence Essential hypertension Atrial dysrhythmia Hx of urinary frequency Hypothyroidism Depression History of cervical fracture C5-C6 CERVICAL FRACTURE 2014 TREATED CONSERVATIVELY Hypertension Hypothyroidism GERD (gastroesophageal reflux disease) CONTROLLED Surgical History History of hernia repair History of esophagogastroduodenoscopy (EGD) 9/30/16= MAC SEDATION AT [facility] Hx of shoulder surgery right Hx of arthroscopic knee surgery ? left Hx of prostatectomy History of colonoscopy Social History Smoking Status: Former smoker Tobacco Type: Cigarettes Cigarettes Per Day: 3; Second Hand Exposure: No; Do You Dip or Chew Tobacco: No; Hx Alcohol Use: No Hx Substance Use: No Preferred Language: Cypriot Communication Ability: Effective Communication Ability Comment: unsure Mobile Web Application Developer Required: No Beliefs That Will Affect Care: None marital status: Single Current Living Situation: Halfway Current Living Situation Comment: Lives at [facility] current occupational status: retired Feels Safe at Home: Yes Assistive Devices: Walker Allergies Allergies Allergy/AdvReac Type Severity Reaction Status Date / Time Penicillins Allergy Severe SEVERE Verified 01/22/25 15:21 SWELLING AND HIVES Sulfa (Sulfonamide Allergy Severe SEVERE Verified 01/22/25 15:21 Antibiotics) SWELLING AND HIVES Home Meds Home Medications Medication Instructions Recorded Confirmed cholecalciferol (vitamin D3) 50 2,000 unit PO QAM 04/12/18 01/22/25 mcg (2,000 unit) tablet (Vitamin D3) esomeprazole magnesium 40 mg 40 mg PO Q2D 04/12/18 05/24/24 capsule,delayed release (Nexium) triamcinolone acetonide 0.1 % 1 applic topical DAILY PRN 04/12/18 05/24/24 topical cream affected areas clobetasol 0.05 % topical cream 1 applic topical BID PRN ITCHINESS 08/28/22 05/24/24 cyanocobalamin (vitamin B-12) 1,000 mcg PO QAM 08/28/22 01/22/25 1,000 mcg tablet (Vitamin B-12) gabapentin 600 mg tablet 600 mg PO HS 08/28/22 05/24/24 apixaban 5 mg tablet (Eliquis) 5 mg PO BID 03/29/23 05/24/24 gabapentin 100 mg capsule 100 mg PO BID 03/29/23 01/22/25 levothyroxine 175 mcg tablet 175 mcg PO QAM 03/29/23 05/24/24 mirtazapine 30 mg tablet 30 mg PO HS 03/29/23 05/24/24 ramelteon 8 mg tablet 8 mg PO HS PRN Insomnia 03/29/23 05/24/24 albuterol sulfate 2.5 mg/3 mL 2.5 mg inhalation BID PRN 11/17/23 01/22/25 (0.083 %) solution for nebulization Shortness Of Breath Or Wheezing aspirin 81 mg chewable tablet 81 mg PO DAILY 11/17/23 01/22/25 budesonide 0.5 mg/2 mL suspension 0.5 mg inhalation BID 11/17/23 01/22/25 for nebulization (Pulmicort) duloxetine 30 mg capsule,delayed 30 mg PO .AFTERNOON 11/17/23 01/22/25 release fluticasone furoate 100 1 inh inhalation QAM 11/17/23 05/24/24 mcg-vilanterol 25 mcg/dose inhalation powder (Breo Ellipta) furosemide 20 mg tablet 40 mg PO QAM 11/17/23 05/24/24 oxycodone-acetaminophen 7.5 mg-325 1 tab PO TID 11/17/23 05/24/24 mg tablet (Percocet) potassium chloride 10 mEq 10 meq PO QAM 11/17/23 05/05/24 tablet,extended release(part/cryst) topiramate 50 mg tablet 50 mg PO BID 11/17/23 05/24/24 vitamin B complex 1 tab PO QAM 11/17/23 01/22/25 Afrin (oxymetazoline) 3 spray intranasal BID PRN nose 05/05/24 05/24/24 bleed albuterol sulfate 2.5 mg/3 mL 2.5 mg inhalation Q4H PRN 05/05/24 01/22/25 (0.083 %) solution for nebulization Shortness Of Breath Or Wheezing mupirocin 2 % topical ointment 1 applic topical DIRECTED PRN 05/05/24 05/24/24 nose bleed duloxetine 60 mg capsule,delayed 60 mg PO QAM 01/22/25 01/22/25 release spironolactone 50 mg tablet 50 mg PO QAM 01/22/25 01/22/25 Previous Rx's Medication Instructions Recorded diltiazem HCl 180 mg 180 mg PO QAM #30 caps 05/09/24 capsule,extended release 24 hr metoprolol succinate 50 mg 50 mg PO QAM #30 tabs 05/09/24 tablet,extended release 24 hr Results & Data (ED) Vital Signs Vital Signs - 24 hr 01/22/25 11:23 01/22/25 11:31 01/22/25 12:00 Temperature 36.7 C Temperature Source Oral Pulse Rate 88 83 88 Pulse Rate from SpO2 Sensor Pulse Rhythm Regular Pulse Strength Normal Respiratory Rate 16 20 Respiratory Effort / Characteristics Non-Labored Spontaneous Respiratory Depth Normal Respiratory Pattern Regular Blood Pressure 158/99 H 144/72 H Blood Pressure Mean 118 102 Blood Pressure Position Semi-fowlers Pulse Oximetry 90 93 Oxygen Delivery Method Room Air Nasal Cannula Oxygen Flow Rate 2 Sepsis Recent Fever Within 48 Hours No Sepsis New/Unexplained Change in Mental Status Yes Sepsis Action Taken by Nursing No Action Required 01/22/25 12:04 01/22/25 12:27 01/22/25 12:54 Temperature Temperature Source Pulse Rate 81 82 Pulse Rate from SpO2 Sensor 80 Pulse Rhythm Pulse Strength Respiratory Rate 20 21 Respiratory Effort / Characteristics Respiratory Depth Respiratory Pattern Blood Pressure 133/85 121/102 H Blood Pressure Mean 101 108 Blood Pressure Position Pulse Oximetry 92 94 95 Oxygen Delivery Method Nasal Cannula Nasal Cannula Nasal Cannula Oxygen Flow Rate 2 2 2 Sepsis Recent Fever Within 48 Hours Sepsis New/Unexplained Change in Mental Status Sepsis Action Taken by Nursing 01/22/25 14:00 01/22/25 14:15 01/22/25 14:39 Temperature Temperature Source Pulse Rate 86 86 84 Pulse Rate from SpO2 Sensor 86 84 Pulse Rhythm Pulse Strength Respiratory Rate 19 26 H 22 Respiratory Effort / Characteristics Respiratory Depth Respiratory Pattern Blood Pressure 180/95 H 141/82 H 149/80 H Blood Pressure Mean 123 101 103 Blood Pressure Position Pulse Oximetry 93 94 92 Oxygen Delivery Method Nasal Cannula Nasal Cannula Nasal Cannula Oxygen Flow Rate 2 2 2 Sepsis Recent Fever Within 48 Hours Sepsis New/Unexplained Change in Mental Status Sepsis Action Taken by Nursing Laboratory Data 01/22/25 11:23 01/22/25 11:23 Lab Results 01/22/25 01/22/25 01/22/25 Range/Units 11:23 13:07 13:15 WBC 12.23 H (4.8-10.8) K/ul RBC 6.06 (4.70-6.10) M/uL Hgb 18.2 H (14.0-18.0) g/dl POC Hgb 18.4 H (14.0-18.0) g/dl Hct 54.6 H (42.0-52.0) % POC Hct 54 H (42-52) % MCV 90.1 (80.0-100.0) fL MCH 30.0 (25.0-34.0) pg MCHC 33.3 (32.0-36.0) g/dL RDW Std Deviation 44.7 (36.4-46.3) fL RDW Coeff of Edward 13.6 (11.5-14.5) % Plt Count 269 (130-400) K/uL MPV 10.2 (9.4-12.4) fL Immature Gran % (Auto) 0.3 % Neut % (Auto) 80.6 % Lymph % (Auto) 6.8 % Mcduffie % (Auto) 12.1 % Eos % (Auto) 0.0 % Baso % (Auto) 0.2 % Neut # (Auto) 9.85 H (1.40-6.50) K/uL Lymph # (Auto) 0.83 L (1.20-3.40) K/uL Mcduffie # (Auto) 1.48 H (0.11-0.59) K/uL Eos # (Auto) 0.00 (0.00-0.50) K/uL Baso # (Auto) 0.03 (0.00-0.20) K/uL Immature Gran # (Auto) 0.04 (0.01-0.20) K/uL PT 11.9 (9.0-12.0) Seconds INR 1.1 (0.9-1.1) APTT 29 (21-31) Seconds PTT Ratio 1.1 POC Sodium 143 (135-144) mmol/L Sodium 140 (136-145) mmol/L POC Potassium 4.0 (3.3-5.0) mmol/L Potassium 4.0 (3.5-5.1) mmol/L POC Chloride 106 (101-112) mmol/L Chloride 106 (98-107) mmol/L Carbon Dioxide 24 (21-32) mmol/L POC Total CO2 23 L (24-31) mmol/L Anion Gap 10 (3-11) POC Anion Gap 19.0 (16-25) mmol/L POC BUN 25 H (7-18) mg/dl BUN 23 (6-23) mg/dl Creatinine 1.07 (0.6-1.4) mg/dl POC Creatinine 1.0 (0.6-1.3) mg/dl Est Cr Clr Drug Dosing 62.1 ml/min eGFR 68.43 BUN/Creatinine Ratio 21.5 H (10-20) Glucose 272 H (70-99(Fasting)) mg/dl POC Glucose (other) 252 H (70-99) mg/dl Calcium 9.6 (8.6-10.3) mg/dl POC Ioniz Calcium Esther 1.20 (1.12-1.32) mmol/l Total Bilirubin 0.7 (0.2-1.0) mg/dl AST 23 (13-39) U/L ALT 11 (7-52) U/L Alkaline Phosphatase 88 (34-104) U/L Troponin I High Sens 8.8 (0-20) pg/ml Total Protein 7.3 (6.0-8.3) gm/dl Albumin 3.6 (3.4-5.0) gm/dl Globulin 3.7 (2.5-4.0) gm/dl Albumin/Globulin Ratio 1.0 (0.9-2) Lipase 10 L (11-82) U/L Urine Color Dark Yellow Urine Appearance Clear (Clear) Urine pH 6.0 (4.5-7.5) Ur Specific [place] 1.026 (1.000-1.030) Urine Protein Trace H (Negative) Urine Glucose (UA) Negative (Negative) Urine Ketones Trace H (Negative) Urine Blood Negative (Negative) Urine Nitrite Negative (Negative) Urine Bilirubin 1+ H (Negative) Urine Urobilinogen Negative (Negative) Ur Leukocyte Esterase Trace H (Negative) Urine WBC (Auto) 0-5 (0-5) /hpf Urine RBC (Auto) 0-2 (0-2) /hpf U Hyaline Cast (Auto) 3-5 H (0-2) /lpf U Epithel Cells (Auto) 0-2 (0-2) /hpf Urine Bacteria (Auto) None Seen (None Seen) Urine Comment POC Stool Occult Blood (Negative) 01/22/25 Range/Units 14:29 WBC (4.8-10.8) K/ul RBC (4.70-6.10) M/uL Hgb (14.0-18.0) g/dl POC Hgb (14.0-18.0) g/dl Hct (42.0-52.0) % POC Hct (42-52) % MCV (80.0-100.0) fL MCH (25.0-34.0) pg MCHC (32.0-36.0) g/dL RDW Std Deviation (36.4-46.3) fL RDW Coeff of Edward (11.5-14.5) % Plt Count (130-400) K/uL MPV (9.4-12.4) fL Immature Gran % (Auto) % Neut % (Auto) % Lymph % (Auto) % Mcduffie % (Auto) % Eos % (Auto) % Baso % (Auto) % Neut # (Auto) (1.40-6.50) K/uL Lymph # (Auto) (1.20-3.40) K/uL Mcduffie # (Auto) (0.11-0.59) K/uL Eos # (Auto) (0.00-0.50) K/uL Baso # (Auto) (0.00-0.20) K/uL Immature Gran # (Auto) (0.01-0.20) K/uL PT (9.0-12.0) Seconds INR (0.9-1.1) APTT (21-31) Seconds PTT Ratio POC Sodium (135-144) mmol/L Sodium (136-145) mmol/L POC Potassium (3.3-5.0) mmol/L Potassium (3.5-5.1) mmol/L POC Chloride (101-112) mmol/L Chloride (98-107) mmol/L Carbon Dioxide (21-32) mmol/L POC Total CO2 (24-31) mmol/L Anion Gap (3-11) POC Anion Gap (16-25) mmol/L POC BUN (7-18) mg/dl BUN (6-23) mg/dl Creatinine (0.6-1.4) mg/dl POC Creatinine (0.6-1.3) mg/dl Est Cr Clr Drug Dosing ml/min eGFR BUN/Creatinine Ratio (10-20) Glucose (70-99(Fasting)) mg/dl POC Glucose (other) (70-99) mg/dl Calcium (8.6-10.3) mg/dl POC Ioniz Calcium Esther (1.12-1.32) mmol/l Total Bilirubin (0.2-1.0) mg/dl AST (13-39) U/L ALT (7-52) U/L Alkaline Phosphatase (34-104) U/L Troponin I High Sens (0-20) pg/ml Total Protein (6.0-8.3) gm/dl Albumin (3.4-5.0) gm/dl Globulin (2.5-4.0) gm/dl Albumin/Globulin Ratio (0.9-2) Lipase (11-82) U/L Urine Color Urine Appearance (Clear) Urine pH (4.5-7.5) Ur Specific [place] (1.000-1.030) Urine Protein (Negative) Urine Glucose (UA) (Negative) Urine Ketones (Negative) Urine Blood (Negative) Urine Nitrite (Negative) Urine Bilirubin (Negative) Urine Urobilinogen (Negative) Ur Leukocyte Esterase (Negative) Urine WBC (Auto) (0-5) /hpf Urine RBC (Auto) (0-2) /hpf U Hyaline Cast (Auto) (0-2) /lpf U Epithel Cells (Auto) (0-2) /hpf Urine Bacteria (Auto) (None Seen) Urine Comment POC Stool Occult Blood Positive A (Negative) Administered Medications Discontinued Medications Ioversol (Optiray 320 100ml) 90 ml IV ONCE ONE Stop: 01/22/25 13:19 Last Admin: 01/22/25 13:18 Dose: 90 ml Documented By: ROSELINE Imaging Data Radiologist's Impression: Chest X-Ray 01/22/25 12:01 XR chest 2V PA/lateral CLINICAL HISTORY: sob COMPARISON STUDY: 05/23/2024 FINDINGS: Stable cardiomegaly without pulmonary vascular congestion. Inspiration is shallow. There is interval mild stranding at the right lung base. No other consolidation or pleural effusion seen. No pneumothorax. Stable old left rib fractures. IMPRESSION: Atelectasis versus early pneumonia right lung base. ACT 112: Negative or not required by law. Electronically signed by: Sergio Kelly M.D. 01/22/2025 1:02 PM Abdomen/Pelvis CT 01/22/25 12:[address] WITH IV CONTRAST CT DOSE: 1563.76 mGy.cm HISTORY: abd pain TECHNIQUE: Multiaxial CT images of the abdomen and pelvis were performed following the IV administration of 90 cc of Optiray, A dose lowering technique was utilized adhering to the principles of ALARA. COMPARISON STUDY: 02/29/2024 FINDINGS: ABDOMEN: There is a stable small area of enhancement anterior superior right hepatic lobe, likely small hemangioma. There is a tiny amount of gas within the superior right hepatic lobe, possibly a tiny amount of venous gas from the contrast injection. Otherwise the liver, gallbladder, spleen, pancreas, and adrenal glands are unremarkable. Kidneys show no hydronephrosis or calculi. There are scattered atherosclerotic calcifications. Distal abdominal aortic aneurysm measuring 3.5 cm diameter is stable. There is trace ascites. Pelvis: Prostate is surgically absent. Urinary bladder is nondistended. There is extensive sigmoid diverticulosis. No acute diverticulitis. Normal appendix. There is mild wall thickening and inflammation at multiple right abdominal and pelvic small bowel loops consistent with enteritis. No other bowel inflammation or obstruction seen. No free air or abscess. There is trace ascites. No enlarged adenopathy. There is severe lumbar degenerative disc disease. IMPRESSION: 1. Findings consistent with enteritis without bowel obstruction. If symptoms worsen, follow-up CT scan would be suggested. 2. Otherwise as described. ACT 112: Negative or not required by law. The above report was generated using voice recognition software. It may contain grammatical, syntax or spelling errors. Electronically signed by: Sergio Kelly M.D. 01/22/2025 1:[address] 01/22/25 14:40 CT head/brain wo con CLINICAL HISTORY: altered mental. TECHNIQUE: Multiple axial CT images of the head were obtained without contrast. A dose lowering technique was utilized adhering to the principles of ALARA. CT DOSE: 663.26 mGy.cm COMPARISON: 05/23/2024 FINDINGS: There is motion artifact. There is residual intravascular contrast from the contrast CT earlier. No intracranial hemorrhage seen. No mass effect or midline shift. There is stable mild prominence of the ventricles out of portion to the sulci, cerebral atrophy versus mild normal pressure hydrocephalus. There is stable moderate chronic small vessel ischemic change. Visualized paranasal sinuses are clear. No mastoid effusion. No skull fracture seen. IMPRESSION: No acute findings. ACT 112: Negative or not required by law. The above report was generated using voice recognition software. It may contain grammatical, syntax or spelling errors. Electronically signed by: Sergio Kelly M.D. 01/22/2025 3:09 PM Discharge Plan Visit Data Chief Complaint: GI Assessment ED Provider: Tirso Ham ED Midlevel Provider: Symone Owens Discharge Problem: Lower gastrointestinal hemorrhage, Pneumonia Patient Disposition: Admitted As Inpatient Condition: Good Prescriptions Prescriptions: No Action Eliquis 5 mg tablet 5 mg PO BID gabapentin 100 mg capsule 100 mg PO BID levothyroxine 175 mcg tablet 175 mcg PO QAM mirtazapine 30 mg tablet 30 mg PO HS ramelteon 8 mg tablet 8 mg PO HS PRN (Reason: Insomnia) triamcinolone acetonide 0.1 % Cream 1 applic TOPICAL DAILY PRN (Reason: affected areas) esomeprazole magnesium [Nexium] 40 mg Capsule,Delayed Release(Dr/Ec) 40 mg PO Q2D cholecalciferol (vitamin D3) [Vitamin D3] 2,000 unit Tablet 2,000 unit PO QAM gabapentin 600 mg tablet 600 mg PO HS clobetasol 0.05 % Cream 1 applic TOPICAL BID PRN (Reason: ITCHINESS) cyanocobalamin (vitamin B-12) [Vitamin B-12] 1,000 mcg Tablet 1,000 mcg PO QAM albuterol sulfate 2.5 mg /3 mL (0.083 %) Solution For Nebulization 2.5 mg INHALATION BID PRN (Reason: Shortness Of Breath Or Wheezing) budesonide [Pulmicort] 0.5 mg/2 mL Suspension For Nebulization 0.5 mg INHALATION BID aspirin 81 mg Tablet,Chewable 81 mg PO DAILY vitamin B complex Tablet 1 tab PO QAM furosemide 20 mg tablet 40 mg PO QAM oxycodone-acetaminophen [Percocet] 7.5-325 mg Tablet 1 tab PO TID MDD 3 GRAMS APAP/24 HOURS potassium chloride 10 mEq tablet,ER particles/crystals 10 meq PO QAM topiramate 50 mg tablet 50 mg PO BID Rx Instructions: START 11/16/23 FOR 8 DAY, THEN BEGIN 50 MG BID ON 11/24/23. duloxetine 30 mg capsule,delayed release(DR/EC) 30 mg PO .AFTERNOON Rx Instructions: AFTERNOON fluticasone furoate-vilanterol [Breo Ellipta] 100-25 mcg/dose Blister With Device 1 inh INHALATION QAM Afrin (oxymetazoline) 3 spray intranasal BID PRN (Reason: nose bleed) Rx Instructions: if bleeding does not stop in 20-30 mins needs ER. albuterol sulfate 2.5 mg /3 mL (0.083 %) Solution For Nebulization 2.5 mg inhalation Q4H PRN (Reason: Shortness Of Breath Or Wheezing) mupirocin 2 % Ointment 1 applic TOPICAL DIRECTED PRN (Reason: nose bleed) diltiazem HCl 180 mg Capsule,Extended Release 24hr 180 mg PO QAM Qty: 30 0RF metoprolol succinate 50 mg Tablet Extended Release 24 Hr 50 mg PO QAM Qty: 30 0RF Rx Instructions: HOLD FOR SBP <90 OR HR <55 spironolactone 50 mg Tablet 50 mg PO QAM duloxetine [Cymbalta] 60 mg Capsule,Delayed Release(Dr/Ec) 60 mg PO QAM Referrals Referrals: Magaly Nicole [Primary Care Provider] - Discharge Problem: Pneumonia Qualifiers: Pneumonia type: due to unspecified organism Laterality: unspecified laterality Lung location: unspecified part of lung Qualified Code(s): J18.9 - Pneumonia, unspecified organism
[2025-01-22 13:33] LABS: Appearance Urine Clear (Clear); Bacteria Urine Automated None Seen (None Seen); Epithelial Cell Urine Auto 0-2 /hpf (0-2); Glucose Urine UA Negative (Negative); RBC Urine Automated 0-2 /hpf (0-2); WBC Urine Automated 0-5 /hpf (0-5)
--- NOTE | 2025-01-22 13:50 | CT Scan Report ---
ABDOMEN AND PELVIS CT WITH IV CONTRAST CT DOSE: 1563.76 mGy.cm HISTORY: abd pain TECHNIQUE: Multiaxial CT images of the abdomen and pelvis were performed following the IV administrat ion of 90 cc of Optiray, A dose lowering technique was utilized adhering to the principles of ALARA. COMPARISON STUDY: 02/29/2024 FINDINGS: ABDOMEN: There is a stable small area of enhancement anterior superior right hepatic lobe, likely sma ll hemangioma. There is a tiny amount of gas within the superior right hepatic lobe, possibly a tiny amount of venous gas from the contrast injection. Otherwise the liver, gallbladder, spleen, pancreas, and adrenal glands are unremarkable. Kidneys show no hydronephrosis or calculi. There are scattered atherosclerotic calcifications. Distal abdominal aortic aneurysm measuring 3.5 cm diameter is stable. There is trace ascites. Pelvis: Prostate is surgically absent. Urinary bladder is nondistended. There is extensive sigmoid di verticulosis. No acute diverticulitis. Normal appendix. There is mild wall thickening and inflammatio n at multiple right abdominal and pelvic small bowel loops consistent with enteritis. No other bowel inflammation or obstruction seen. No free air or abscess. There is trace ascites. No enlarged adenopa thy. There is severe lumbar degenerative disc disease. IMPRESSION: 1. Findings consistent with enteritis without bowel obstruction. If symptoms worsen, follow-up CT sca n would be suggested. 2. Otherwise as described. ACT 112: Negative or not required by law. The above report was generated using voice recognition software. It may contain grammatical, syntax o r spelling errors. Electronically signed by: Sergio Kelly M.D. 01/22/2025 1:49 PM
--- NOTE | 2025-01-22 15:11 | CT Scan Report ---
CT head/brain wo con CLINICAL HISTORY: altered mental. TECHNIQUE: Multiple axial CT images of the head were obtained without contrast. A dose lowering tech nique was utilized adhering to the principles of ALARA. CT DOSE: 663.26 mGy.cm COMPARISON: 05/23/2024 FINDINGS: There is motion artifact. There is residual intravascular contrast from the contrast CT ear lier. No intracranial hemorrhage seen. No mass effect or midline shift. There is stable mild prominen ce of the ventricles out of portion to the sulci, cerebral atrophy versus mild normal pressure hydroc ephalus. There is stable moderate chronic small vessel ischemic change. Visualized paranasal sinuses are clear. No mastoid effusion. No skull fracture seen. IMPRESSION: No acute findings. ACT 112: Negative or not required by law. The above report was generated using voice recognition software. It may contain grammatical, syntax o r spelling errors. Electronically signed by: Sergio Kelly M.D. 01/22/2025 3:09 PM
--- NOTE | 2025-01-22 15:18 | Electrocardiogram Report ---
Test Reason : Blood Pressure : */* mmHG Vent. Rate : 84 BPM Atrial Rate : 84 BPM P-R Int : 214 ms QRS Dur : 80 ms QT Int : 372 ms P-R-T Axes : -16 -12 -14 degrees QTcB Int : 439 ms Sinus rhythm with 1st degree A-V block Low voltage QRS Inferior infarct , age undetermined Cannot rule out Anterior infarct (cited on or before 17-Nov-2023) Abnormal ECG When compared with ECG of 23-May-2024 21:16, Sinus rhythm has replaced Atrial fibrillation Inferior infarct is now Present Questionable change in initial forces of Septal leads Nonspecific T wave abnormality now evident in Inferior leads Confirmed by Nick Greene ([id number]) on 01/22/2025 3:17:23 PM Referred By: Confirmed By: Nick Greene
[2025-01-22] MEDS ORDERED: PANTOPRAZOLE BOLUS/DRIP IV STA (15:25)
--- NOTE | 2025-01-22 16:05 | History & Physical Report ---
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 He presented from [facility] with dark vomiting and diarrhea that began evening prior to admission and worsened on day of admission. Obtained history is very limited secondary to patient's cognitive status. Attempted to call family multiple times without answer. He is being admitted for treatment of his acute GI bleed and community-acquired pneumonia. 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 Had dark emesis around his mouth on arrival. Hemoccult positive on arrival. Hemoglobin stable at 18 and vital signs stable on admission. Has a history of alcohol use - Hold Eliquis - Keep n.p.o. - Start maintenance IV fluids with NSS at 125 mL/h - Start Protonix bolus and drip - Serial CBC Q6h x 3 - Stool PCR ordered - GI consulted, appreciate recommendations #Community-acquired pneumonia - CXR suspicious for RLL pneumonia and mild leukocytosis of 12.23 on arrival - Listed allergy to penicillins (reaction of severe swelling and hives), discussed with pharmacy and patient has never received a cephalosporin at our facility. Graded antibiotic challenge for ceftriaxone was going to be attempted, however patient cannot provide informed consent due to his cognitive status and his family did not answer multiple phone calls - Start Levaquin 750 mg daily x 5 days - Mucinex 1200 mg BID - DuoNeb PRN wheezing/shortness of breath - Continue supplemental O2 to maintain O2 sat >90% #COPDcontinue budesonide BID, Breo, albuterol PRN. DuoNebs available PRN as above #A fib | H/o CVAcontinue diltiazem, metoprolol, spironolactone. Eliquis and aspirin on hold with acute GI bleed #Hypothyroidismrecent TSH normal at 1.1. Continue Synthroid #Chronic paincontinue gabapentin, oxycodone PRN #GERDcontinue PPI #Vitamin D deficiency | vitamin B12 deficiencycontinue cholecalciferol, cyanocobalamin # Major depressive disorder/alcohol use disorder/suspected vascular dementia continue Cymbalta, Remeron VTE PPx: SCDs. Chemoprophylaxis contraindicated with acute GI bleed Dispo: Admit to med/tele Reviewed prior records Attempted to call patient's son x3 and significant other x 2 without answer - continue to attempt to get ahold of patient's family History of Present Illness Chief Complaint: Vomiting, diarrhea Primary Care Provider: [facility] Tulio is a an 80-year-old man with past medical history of sinus tachycardia, COPD with chronic hypoxemic respiratory failure, alcohol use disorder, frequent falls, history of CVA on Eliquis. He presented from [facility] with dark vomiting and diarrhea. At the time of my exam, the patient was lying in bed in no acute distress. HPI and ROS unable to be obtained due to patient's cognitive status. Attempted to call patient's son x 3 and his significant other x 2 without success. Sign out from ED is that Dov was sent in for dark emesis and stool that began yesterday evening and worsened this morning. [facility] cannot provide further details on the appearance of his emesis or stool. Patient denied chest pain, shortness of breath, abdominal pain illness, recent travel to ED provider. Per the [facility]'s documentation, patient took all of his regular morning medications today, including his Eliquis and baby aspirin. Vitals on admission are stable. BP 149/80. 92% on 2 L NC (baseline). Labs on admission are significant for mild leukocytosis with WBC 12.23, Hgb 18.2, elevated glucose at 272. Coagulation studies WNL. Electrolytes WNL. Renal function WNL. Liver enzymes WNL. Troponin negative at 8.8. UA with trace protein, trace ketones, 1+ bilirubin, trace leukocyte esterase, 35 hyaline casts, no WBC, no bacteria, no nitrates, no blood. CXR on admission reveals atelectasis versus early pneumonia of the right lung base. CT A/P with findings consistent with enteritis without bowel obstruction and distal abdominal aortic aneurysm measuring 3.[address] with no acute findings. Documentation from [facility] notes that patient's code status is DNR/DNI. Allergies Allergy/AdvReac Type Severity Reaction Status Date / Time Penicillins Allergy Severe SEVERE Verified 01/22/25 15:21 SWELLING AND HIVES Sulfa (Sulfonamide Allergy Severe SEVERE Verified 01/22/25 15:21 Antibiotics) SWELLING AND HIVES Home Medications Medication Instructions Recorded Confirmed Type cholecalciferol (vitamin D3) 50 2,000 unit PO QAM 04/12/18 01/22/25 History mcg (2,000 unit) tablet (Vitamin D3) esomeprazole magnesium 40 mg 40 mg PO Q2D 04/12/18 01/22/25 History capsule,delayed release (Nexium) triamcinolone acetonide 0.1 % 1 applic topical DAILY PRN 04/12/18 01/22/25 History topical cream affected areas clobetasol 0.05 % topical cream 1 applic topical BID PRN ITCHINESS 08/28/22 01/22/25 History cyanocobalamin (vitamin B-12) 1,000 mcg PO QAM 08/28/22 01/22/25 History 1,000 mcg tablet (Vitamin B-12) gabapentin 600 mg tablet 600 mg PO HS 08/28/22 01/22/25 History apixaban 5 mg tablet (Eliquis) 5 mg PO BID 03/29/23 01/22/25 History gabapentin 100 mg capsule 100 mg PO BID 03/29/23 01/22/25 History levothyroxine 175 mcg tablet 175 mcg PO QAM 03/29/23 01/22/25 History mirtazapine 30 mg tablet 30 mg PO HS 03/29/23 01/22/25 History albuterol sulfate 2.5 mg/3 mL 2.5 mg inhalation BID PRN 11/17/23 01/22/25 History (0.083 %) solution for nebulization Shortness Of Breath Or Wheezing aspirin 81 mg chewable tablet 81 mg PO DAILY 11/17/23 01/22/25 History budesonide 0.5 mg/2 mL suspension 0.5 mg inhalation BID 11/17/23 01/22/25 History for nebulization (Pulmicort) duloxetine 30 mg capsule,delayed 30 mg PO .AFTERNOON 11/17/23 01/22/25 History release topiramate 50 mg tablet 50 mg PO BID 11/17/23 01/22/25 History vitamin B complex 1 tab PO QAM 11/17/23 01/22/25 History albuterol sulfate 2.5 mg/3 mL 2.5 mg inhalation Q4H PRN 05/05/24 01/22/25 History (0.083 %) solution for nebulization Shortness Of Breath Or Wheezing diltiazem HCl 180 mg 180 mg PO QAM #30 caps 05/09/24 01/22/25 Rx capsule,extended release 24 hr metoprolol succinate 50 mg 50 mg PO QAM #30 tabs 05/09/24 01/22/25 Rx tablet,extended release 24 hr acetaminophen 325 mg tablet 650 mg PO Q6H PRN PAIN/FEVER 01/22/25 01/22/25 History (Tylenol) duloxetine 60 mg capsule,delayed 60 mg PO QAM 01/22/25 01/22/25 History release fluticasone furoate 100 1 inh inhalation QAM 01/22/25 01/22/25 History mcg-vilanterol 25 mcg/dose inhalation powder (Breo Ellipta) oxycodone 5 mg tablet 5 mg PO Q4H PRN Pain (Scale Score 01/22/25 01/22/25 History 7-10) oxymetazoline 0.05 % nasal spray 3 spray intranasal Q12H PRN NOSE 01/22/25 01/22/25 History (Afrin (oxymetazoline)) BLEEDS spironolactone 50 mg tablet 50 mg PO QAM 01/22/25 01/22/25 History Past Med/Surg History Problem List (Updated 01/22/25 @ 15:52 by Darby Mauricio PA-C) Community acquired pneumonia Pneumonia (Acute) Lower gastrointestinal hemorrhage (Acute) Pneumonia GI bleed Influenza A (Acute) Acute confusion (Acute) Sinus tachycardia Acute on chronic hypoxic respiratory failure COPD exacerbation Alcohol intoxication (Acute) Elevated brain natriuretic peptide (BNP) level (Acute) Generalized weakness (Acute) Ambulatory dysfunction (Acute) Acute hypoxemic respiratory failure (Acute) Fall from standing (Acute) Vitamin D deficiency Numbness COVID-19 (Acute) COVID (Acute) Weakness (Acute) Hypoxic (Acute) Malaise and fatigue COVID Mixed conductive and sensorineural hearing loss of right ear with restricted hearing of left ear Sensorineural hearing loss (SNHL) Impacted cerumen of both ears History of alcoholism Encounter for pre-operative examination Hearing deficit HEARING AIDS Prostate cancer PROSTATE S/P PROSTATECTOMY; NO CHEMO OR RADIATION Hematoma (Acute 07/24/13) Medical History Primary hypothyroidism Opioid dependence Essential hypertension Atrial dysrhythmia Hx of urinary frequency Hypothyroidism Depression History of cervical fracture C5-C6 CERVICAL FRACTURE 2014 TREATED CONSERVATIVELY Hypertension Hypothyroidism GERD (gastroesophageal reflux disease) CONTROLLED Surgical History History of hernia repair History of esophagogastroduodenoscopy (EGD) 01/14/16= MAC SEDATION AT [facility] Hx of shoulder surgery right Hx of arthroscopic knee surgery ? left Hx of prostatectomy History of colonoscopy Social History Smoking Status: Former smoker Tobacco Type: Cigarettes Cigarettes Per Day: 3; Second Hand Exposure: No; Do You Dip or Chew Tobacco: No; Hx Alcohol Use: No Hx Substance Use: No Preferred Language: Amharic Communication Ability: Effective Communication Ability Comment: unsure Rug Dyer Required: No Beliefs That Will Affect Care: None marital status: Single Current Living Situation: [facility] Current Living Situation Comment: Lives at [facility] current occupational status: retired Feels Safe at Home: Yes Assistive Devices: Walker Review of Systems Review of Systems: Unobtainable due to cognitive status Physical Exam Physical Exam: General: No acute distress, nondiaphoretic, well-developed, well-nourished. Skin: Warm, dry. No rashes or peripheral edema noted. HEENT: PERRLA. Moist mucous membranes. Dark-colored emesis crusted around patient's mouth. Cardiac: Regular rate and rhythm without murmurs gallops or rubs. Pulm: Clear to auscultation bilaterally without wheezes, rales or rhonchi. Normal respiratory effort. 92% on 2 L NC (chronic). Abdominal: Soft, nontender to palpation. Mildly distended. No guarding, rigidity, or rebound tenderness. No CVA tenderness. Neuro: Alert but not oriented. No focal neurological deficits. Results & Data Results & Data Vital Signs (Past 12 Hours) Vital Signs Temp Pulse Resp BP Pulse Ox O2 Del Method O2 Flow Rate 01/22/25 15:25 84 01/22/25 14:39 84 22 149/80 H 92 Nasal Cannula 2 01/22/25 14:15 86 26 H 141/82 H 94 Nasal Cannula 2 01/22/25 14:00 86 19 180/95 H 93 Nasal Cannula 2 01/22/25 12:54 82 21 121/102 H 95 Nasal Cannula 2 01/22/25 12:27 81 20 133/85 94 Nasal Cannula 2 01/22/25 12:04 92 Nasal Cannula 2 01/22/25 12:00 88 01/22/25 11:31 83 20 144/72 H 93 Nasal Cannula 2 01/22/25 11:23 98.1 F 88 16 158/99 H 90 Room Air Laboratory Results Reviewed CBC with differential, coagulation studies, CMP/chemistries, UA Diagnostic Findings Reviewed CXR, CT A/P, head CT Supervising Physician Co-Signing Physician Notes PA Supervision Note: I personally saw and examined the patient. I verified all ewing points and agree with CHIP Mauricio with the following exceptions and/or additions: S-this patient is an 84-year-old male who was brought in by EMS from his personal-group home for nausea/vomiting, diarrhea, and abdominal distention. The patient is confused and cannot tell me why he is here. He denies abdominal pain. He does not know if he vomited or had diarrhea. He was found to have Hemoccult positive dark stool in the ED and was noted to have black staining around his mouth consistent with hematemesis. His alcohol level was negative but he is a at least former alcohol abuser. He is afebrile, hemodynamically stable, with low normal pulse ox. Found to have pneumonia on CXR and enteritis on CT abdomen/pelvis O- Vitals reviewed Gen: AAOx1, NAD HEENT: Anicteric sclerae, EOMI CV: RRR no mgr nl S1S2 Pulm: CTAB no wcr Abd: +BS soft NT mild distention no masses or hernias Ext: No edema, 2+ DP pulses Skin: No rashes, warm/dry Neuro: Full strength throughout CBC, BMP, troponin, CT abdomen/pelvis, ECG, CXR, CT head reviewed A/R-31-asxe-old male here with nausea/vomiting/diarrhea with hematemesis and m nhi. He is quite hemoconcentrated with a hemoglobin of 18 and is hemodynamically stable. Possible infectious gastroenteritis versus peptic ulcer disease given history of GERD and alcohol abuse. - Admit for GI bleed, start IV Protonix - Consult GI and keep n.p.o. in case of need for EGD - Will continue to attempt to get a hold of family members for further information - Hold Eliquis and aspirin - Follow CBC - Treat with antibiotics for community-acquired pneumonia versus aspiration pneumonia PG Care Time/CCT Total # of Minutes Spent Total Time Spent with Patient: Total time spent is greater than 50% in coordination of care (as documented) at patient's floor/unit and/or counseling patient: Coding Level of Care Code 94765 INT INP/OBS CARE 3/75MIN Diagnoses GI bleed K92.2 Community acquired pneumonia J18.9"
[2025-01-22] MEDS: PANTOprazole 40 MG in DEXTROSE 5% MINI-B 100 ML IV SCH (16:15)
--- NOTE | 2025-01-22 16:25 | Emergency Department Note ---
ED Visit Note I was consulted by the Advanced Practice Provider. I personally made/approved the management plan and take responsibility for the patient management. This includes the aspects of: -History/Physical -MDM .
[2025-01-22] MEDS ORDERED: CLOBETASOL PROPIONATE 0.05% CREAM 15 GM TUBE TOP PRN (20:41)
[2025-01-22] MEDS ORDERED: ONDANSETRON INJ 2 MG/ML 2 ML VIAL IV PRN (20:41)
[2025-01-22] MEDS ORDERED: ALBUTEROL 0.083% NEBU SOLN 3 ML VIAL INH PRN (20:41)
[2025-01-22] MEDS ORDERED: TRIAMCINOLONE ACET 0.1% CR 15 GM TUBE TOP PRN (20:41)
[2025-01-22] MEDS ORDERED: ACETAMINOPHEN 325 MG TAB PO PRN (20:41)
[2025-01-22] MEDS: SODIUM CHLORIDE 0.9% 1,000 ML IV SCH (20:53)
[2025-01-22] MEDS: BUDESONIDE 0.5 MG/2 ML VIAL (PULMICORT) INH SCH (22:00)
[2025-01-22] MEDS: guaiFENesin 600 MG TABCR PO SCH (22:31)
[2025-01-22] MEDS: GABAPENTIN 600 MG TAB PO SCH (22:31)
[2025-01-22] MEDS: GABAPENTIN 100 MG CAP PO SCH (22:31)
[2025-01-22] MEDS: MIRTAZAPINE TAB 15 MG TAB PO SCH (22:31)
[2025-01-22] MEDS: TOPIRAMATE 50 MG TAB PO SCH (22:31)
[2025-01-22] MEDS: ACETAMINOPHEN 1,000 MG/100 ML VIAL IV STA (23:32)
[2025-01-23 03:25] LABS: Adenovirus F 40/41 PCR Not Detected (NotDetected); Campylobacter PCR Not Detected (NotDetected); Enteroaggregative E.coli(EAEC) Not Detected (NotDetected); Shiga-like Toxin E.coli (STEC) Not Detected (NotDetected); Vibrio species PCR Not Detected (NotDetected)
[2025-01-23] MEDS: ALBUT/IPRATROP 3MG/0.5MG NEB 3 ML VIAL NEB PRN (04:29)
[2025-01-23] MEDS: LEVOTHYROXINE SODIUM 175 MCG TABLET PO SCH (04:33)
[2025-01-23 07:27] LABS: Hematocrit (blood only) 50.9 % (42.0-52.0); Hemoglobin 16.7 g/dl (14.0-18.0); Mean Corpuscular Hemoglobin 30.5 pg (25.0-34.0); Mean Corpuscular Volume 92.9 fL (80.0-100.0); Platelet Count 219 K/uL (130-400); RDW Standard Deviation 46.6 fL (36.4-46.3); Red Blood Count 5.48 M/uL (4.70-6.10); White Blood Count 8.56 K/ul (4.8-10.8)
[2025-01-23 07:58] LABS: Blood Urea Nitrogen 25 mg/dl (6-23); Calcium 8.4 mg/dl (8.6-10.3); Carbon Dioxide 21 mmol/L (21-32); Chloride 112 mmol/L (98-107); Creatinine Clr Calc Pharmacy 75.9 ml/min; Glucose 133 mg/dl (70-99(Fasting))
[2025-01-23] MEDS: FLUTICASONE/VILANTEROL 100/25MCG 14 PUFFS/INHALER INH SCH (09:07)
[2025-01-23 10:02] LABS: Potassium 3.2 mmol/L (3.5-5.1); Sodium 140.0 mmol/L (136-145)
[2025-01-23] MEDS: CYANOCOBALAMIN (B-12) 500 MCG TABLET PO SCH (10:31)
[2025-01-23] MEDS: METOPROLOL SUCC 50MG EXT REL TAB PO SCH (10:32)
[2025-01-23] MEDS: VITAMIN B COMPLEX TAB PO SCH (10:32)
[2025-01-23] MEDS: CHOLECALCIFEROL 25 MCG (1000 UNITS) TAB PO SCH (10:35)
--- NOTE | 2025-01-23 10:47 | Gastrointestinal Consultation ---
Date of Consultation January 23, 2025 Assessment & Plan (1) Dark stools: Reported by patient's longterm facility. No further details available. Patient's current H/H is 16.7/50.9. No overt GI bleeding at present. Would plan to monitor conservatively as he is currently being treated for pneumonia. Would give IV Protonix 40 mg BID. Continue to monitor H/H. Supervising Physician Co-Signing Physician Notes I saw and examined this patient with our nurse practitioner and agree with her assessment and plan. No signs of GI blood loss at the present time with normal hemoglobin. Treated for acute pneumonia. Will continue to monitor hemoglobin hematocrit obtain stool Hemoccult. But consider further GI intervention pending results of stool Hemoccult and any evidence of overt bleeding. 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 Already on thiamine therapy however would consider neurologic evaluation at some point during his hospitalization. History of Present Illness Reason for Consultation: GI Bleed Attending Physician: Nyasia Randhawa MD History of Present Illness Patient is an 84 yo male who presented to the ED with PMH of Sinus tachycardia, COPD with chronic hypoxemic respiratory failure, alcohol use disorder, frequent falls, and history of CVA on Eliquis & Baby Aspirin. He presented from [facility] with vomiting and diarrhea. Patient is admitted under hospitalist service being treated for a pneumonia. He is on Levaquin for pneumonia at present. GI has been consulted due to concerns given in a sign-out from [facility] that the patient had dark emesis and dark stool that began on 01/21/25. There are no further details of these events available from [facility] and patient is unable to elaborate further. Currently, his H/H is 16.7/50.9. Currently 96% on 2L NC. WBC 8,560. Stool PCR negative. Brown, loose stool is charted. CT A/P with findings consistent with enteritis without bowel obstruction and distal abdominal aortic aneurysm measuring 3.5 cmstable. Allergies Allergy/AdvReac Type Severity Reaction Status Date / Time Penicillins Allergy Severe SEVERE Verified 01/22/25 15:21 SWELLING AND HIVES Sulfa (Sulfonamide Allergy Severe SEVERE Verified 01/22/25 15:21 Antibiotics) SWELLING AND HIVES Home Medications Medication Instructions Recorded Confirmed Type cholecalciferol (vitamin D3) 50 2,000 unit PO QAM 04/12/18 01/22/25 History mcg (2,000 unit) tablet (Vitamin D3) esomeprazole magnesium 40 mg 40 mg PO Q2D 04/12/18 01/22/25 History capsule,delayed release (Nexium) triamcinolone acetonide 0.1 % 1 applic topical DAILY PRN 04/12/18 01/22/25 History topical cream affected areas clobetasol 0.05 % topical cream 1 applic topical BID PRN ITCHINESS 08/28/22 01/22/25 History cyanocobalamin (vitamin B-12) 1,000 mcg PO QAM 08/28/22 01/22/25 History 1,000 mcg tablet (Vitamin B-12) gabapentin 600 mg tablet 600 mg PO HS 08/28/22 01/22/25 History apixaban 5 mg tablet (Eliquis) 5 mg PO BID 03/29/23 01/22/25 History gabapentin 100 mg capsule 100 mg PO BID 03/29/23 01/22/25 History levothyroxine 175 mcg tablet 175 mcg PO QAM 03/29/23 01/22/25 History mirtazapine 30 mg tablet 30 mg PO HS 03/29/23 01/22/25 History albuterol sulfate 2.5 mg/3 mL 2.5 mg inhalation BID PRN 11/17/23 01/22/25 History (0.083 %) solution for nebulization Shortness Of Breath Or Wheezing aspirin 81 mg chewable tablet 81 mg PO DAILY 11/17/23 01/22/25 History budesonide 0.5 mg/2 mL suspension 0.5 mg inhalation BID 11/17/23 01/22/25 History for nebulization (Pulmicort) duloxetine 30 mg capsule,delayed 30 mg PO .AFTERNOON 11/17/23 01/22/25 History release topiramate 50 mg tablet 50 mg PO BID 11/17/23 01/22/25 History vitamin B complex 1 tab PO QAM 11/17/23 01/22/25 History albuterol sulfate 2.5 mg/3 mL 2.5 mg inhalation Q4H PRN 05/05/24 01/22/25 History (0.083 %) solution for nebulization Shortness Of Breath Or Wheezing diltiazem HCl 180 mg 180 mg PO QAM #30 caps 05/09/24 01/22/25 Rx capsule,extended release 24 hr metoprolol succinate 50 mg 50 mg PO QAM #30 tabs 05/09/24 01/22/25 Rx tablet,extended release 24 hr acetaminophen 325 mg tablet 650 mg PO Q6H PRN PAIN/FEVER 01/22/25 01/22/25 History (Tylenol) duloxetine 60 mg capsule,delayed 60 mg PO QAM 01/22/25 01/22/25 History release fluticasone furoate 100 1 inh inhalation QAM 01/22/25 01/22/25 History mcg-vilanterol 25 mcg/dose inhalation powder (Breo Ellipta) oxycodone 5 mg tablet 5 mg PO Q4H PRN Pain (Scale Score 01/22/25 01/22/25 History 7-10) oxymetazoline 0.05 % nasal spray 3 spray intranasal Q12H PRN NOSE 01/22/25 01/22/25 History (Afrin (oxymetazoline)) BLEEDS spironolactone 50 mg tablet 50 mg PO QAM 01/22/25 01/22/25 History Patient History Medical History Primary hypothyroidism Opioid dependence Essential hypertension Atrial dysrhythmia Hx of urinary frequency Hypothyroidism Depression History of cervical fracture C5-C6 CERVICAL FRACTURE 2013 TREATED CONSERVATIVELY Hypertension Hypothyroidism GERD (gastroesophageal reflux disease) CONTROLLED Surgical History History of hernia repair History of esophagogastroduodenoscopy (EGD) 01/14/16= MAC SEDATION AT [facility] Hx of shoulder surgery right Hx of arthroscopic knee surgery ? left Hx of prostatectomy History of colonoscopy Social History Smoking Status: Never smoker Tobacco Type: Cigarettes Cigarettes Per Day: 3; Second Hand Exposure: No; Do You Dip or Chew Tobacco: No; Hx Alcohol Use: No (pt confused) Hx Substance Use: No (pt confused) Preferred Language: Guinean Communication Ability: Effective Communication Ability Comment: unsure Fire Protection Fabricator Required: No Beliefs That Will Affect Care: None marital status: Single Current Living Situation: [facility] Current Living Situation Comment: [facility] with s/o Elinor current occupational status: retired Feels Safe at Home: Yes Assistive Devices: Nebulizer, Scooter/Electric Scooter and Walker Review of Systems Review of Systems: Patient denies pain at the moment, but is not clear on many symptoms when questioned Physical Exam Constitutional: well developed Respiratory: no respiratory distress Gastrointestinal (Abdomen): normal bowel sounds, soft, nontender, no hepatosplenomegaly Psychiatric: Orientation: alert Results & Data Vital Signs (Past 12 Hours) Vital Signs Temp Pulse Pulse Resp BP Pulse Ox O2 Del Method 01/23/25 09:34 94 H 20 159/70 H 96 Nasal Cannula 01/23/25 07:52 36.7 C 84 18 143/78 H 96 Nasal Cannula 01/23/25 07:25 78 01/23/25 07:07 85 18 90 Room Air 01/23/25 05:51 91 H 155/88 H 01/23/25 04:50 36.5 C 73 18 185/87 H 96 Nasal Cannula 01/23/25 04:30 75 18 96 Nasal Cannula 01/23/25 00:59 36.4 C L 73 18 126/80 92 Nasal Cannula O2 Flow Rate 01/23/25 09:34 2 01/23/25 07:52 2 01/23/25 07:25 01/23/25 07:07 01/23/25 05:51 01/23/25 04:50 2 01/23/25 04:30 2 01/23/25 00:59 2 PG Care Time/CCT Total # of Minutes Spent Total Time Spent with Patient: Total time spent is greater than 50% in coordination of care (as documented) at patient's floor/unit and/or counseling patient: Coding Level of Care Code 13060 INT INP/OBS CARE 2/55MIN Diagnoses Dark stools R19.5
[2025-01-23] MEDS: POTASSIUM CHLORIDE / WTR 10 MEQ/100 ML PLCT IV SCH (11:02)
[2025-01-23] MEDS: POTASSIUM CHLORIDE CRTAB 20 MEQ TABCR PO STA (11:08)
[2025-01-23 11:33] LABS: Magnesium 1.9 mg/dl (1.7-2.4)
--- NOTE | 2025-01-23 12:46 | Hospitalist Progress Note ---
"Date of Service January 23, 2025 Assessment & Plan (1) GI bleed: (2) Community acquired pneumonia: (3) Hypokalemia: (4) V-tach: Plan Tulio is a an 80-year-old man with past medical history of A fib on Eliquis, COPD with chronic hypoxemic respiratory failure, alcohol use disorder, frequent falls, history of CVA on aspirin. He presented from [facility] with dark vomiting and diarrhea that began evening prior to admission and worsened on day of admission. Obtained history is very limited secondary to patient's cognitive status. Attempted to call family multiple times without answer. He is being admitted for treatment of his acute GI bleed and community-acquired pneumonia. 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 Had dark emesis around his mouth on arrival. Hemoccult positive on arrival. Hemoglobin stable at 18 and vital signs stable on admission. Has a history of alcohol use - Hold Eliquis - Hemoglobin remaining stable, hgb 16.7 today 01/23 - Protonix drip now discontinued. Start Protonix 40 mg IV BID - Diet advanced to clear liquids. Per speech therapy, recommend soft bite-size diet when diet is further advanced - Maintenance IV fluids reduced to 80 mL/h. Can likely discontinue IV fluids tomorrow 01/24 when PO intake is more substantial - Stool PCR negative. C diff gene positive, toxin pending - GI consulted, appreciate recommendations #Community-acquired pneumonia - CXR suspicious for RLL pneumonia and mild leukocytosis of 12.23 on arrival - Continue Levaquin 750 mg daily x 5 day total course - Mucinex 1200 mg BID - DuoNeb PRN wheezing/shortness of breath - Supplemental O2 to maintain O2 sat >90%. Stable on room air today 01/23 #Hypokalemia - Potassium of 3.2 on morning labs 01/23 - Repleted with KCl 10 mEq IV x 4 bags and KCl 40 mEq p.o. x 1 - Mag WNL at 1.9 but provided 1 bag of mag IV for optimization - Trend with AM labs #Vtach arrhythmia - Telemetry with multiple short 46 beat runs of V. tach. Longest run of V. tach on telemetry was noted to be 31 beats - Echocardiogram obtained and revealed EF 65-70%, no regional wall motion abnormalities, normal LV systolic function, mild concentric LVH, mildly dilated ascending aorta at 4.1 cm - Increased metoprolol to 75 mg daily #A fib | H/o CVA - Continue diltiazem, metoprolol, spironolactone. Metoprolol increased to 75 mg daily, provided additional 25 mg dose x 1 today 01/23 - Eliquis and aspirin on hold with acute GI bleed #COPDcontinue budesonide BID, Breo, albuterol PRN. DuoNebs available PRN as above #Hypothyroidismrecent TSH normal at 1.1. Continue Synthroid #Chronic paincontinue gabapentin, oxycodone PRN #GERDcontinue PPI #Vitamin D deficiency | vitamin B12 deficiencycontinue cholecalciferol, cyanocobalamin # Major depressive disorder | Alcohol use disorder | Suspected vascular dementia - Continue Cymbalta, Remeron - Start thiamine, folate, multivitamin daily VTE PPx: SCDs. Chemoprophylaxis contraindicated with acute GI bleed Dispo: Continued inpatient stay Updated patient's girlfriend/POA at bedside Ordered echocardiogram Increased metoprolol Repleted potassium and magnesium Started thiamine, folate, multivitamin Discussed diet recommendations with speech therapy Ordered C. difficile testing Admission and Anticipated Discharge Date Admission Date: January 22, 2025 Supervising Physician Co-Signing Physician Notes PA Supervision Note: I did not personally see or examine the patient today, but I verified all ewing points of CHIP Mauricio's assessment and plan with the following exceptions/additions: None Subjective Patient seen and evaluated at bedside with his girlfriend present. He is much more awake and oriented today. He denies any pain currently. His girlfriend notes that he complained of abdominal pain when she first arrived. He has not had any further vomiting. He has been having episodes of diarrhea but these have been without red blood or melena. He denies any chest pain or heart palpitations. He denies shortness of breath. He reports he is not on supplemental oxygen at baseline. We discussed his POLST form indicating comfort measures only, he confirms he would like to be fully treated and continue his hospitalization. We discussed his current treatment plan. All questions/concerns were answered/addressed. No additional complaints or concerns at this time. Telemetry reviewed: Overnight NSR with PVCs 70s80s. This morning, intermittent 46 beat runs of V. tach with conduction changes. Longest run of V. tach was 31 beats. Currently in NSR in the 90s. Physical Exam Physical Exam: General: No acute distress, nondiaphoretic, well-developed, well-nourished. Skin: Warm, dry. No rashes or peripheral edema noted. Cardiac: Regular rate and rhythm without murmurs gallops or rubs. Pulm: Clear to auscultation bilaterally without wheezes, rales or rhonchi. Normal respiratory effort. 93% on room air. Abdominal: Soft, nontender to palpation. Mildly distended. No guarding, rigidity, or rebound tenderness. Neuro: A&Ox3. No focal neurological deficits. Results & Data Results & Data Vital Signs (Past 12 Hours) Vital Signs Temp Pulse Pulse Resp BP Pulse Ox O2 Del Method 01/23/25 11:48 Nasal Cannula 01/23/25 11:18 97.3 F L 120 H 18 133/93 96 Nasal Cannula 01/23/25 09:34 94 H 20 159/70 H 96 Nasal Cannula 01/23/25 07:52 98.1 F 84 18 143/78 H 96 Nasal Cannula 01/23/25 07:25 78 01/23/25 07:07 85 18 90 Room Air 01/23/25 05:51 91 H 155/88 H 01/23/25 04:50 97.7 F 73 18 185/87 H 96 Nasal Cannula 01/23/25 04:30 75 18 96 Nasal Cannula 01/23/25 00:59 97.5 F L 73 18 126/80 92 Nasal Cannula O2 Flow Rate 01/23/25 11:48 1 01/23/25 11:18 2 01/23/25 09:34 2 01/23/25 07:52 2 01/23/25 07:25 01/23/25 07:07 01/23/25 05:51 01/23/25 04:50 2 01/23/25 04:30 2 01/23/25 00:59 2 Laboratory Results Reviewed CBC Reviewed BMP/chemistries Reviewed stool studies Diagnostic Findings Reviewed echocardiogram PG Care Time/CCT Total # of Minutes Spent Total Time Spent with Patient: Total time spent is greater than 50% in coordination of care (as documented) at patient's floor/unit and/or counseling patient: Coding Level of Care Code 80139 SUB INP/OBS CARE 3/50MIN Diagnoses GI bleed K92.2 Community acquired pneumonia J18.9 Hypokalemia E87.6 V-tach I47.20"
[2025-01-23] MEDS: MAGNESIUM SULFATE / D5W 1 GM/100 ML BAG IV ONE (13:08)
--- NOTE | 2025-01-23 14:30 | XCELERA ---
[id number]
[2025-01-23 15:44] LABS: Cdiff Toxin B Gene (2yr or >) Positive Cdiff Gene (Neg)
[2025-01-23] MEDS: METOPROLOL SUCC 25MG EXT REL TAB PO STA (16:30)
[2025-01-23 17:44] LABS: Cdiff Toxin A+B Negative Cdiff Toxin (Negative)
[2025-01-23] MEDS: PANTOprazole 40 MG/10 ML SYR IV SCH (19:43)
[2025-01-23] MEDS ORDERED: PHA DELIRIUM CONSULT PRN (21:06)
[2025-01-24] MEDS ORDERED: PHA DELIRIUM CONSULT PRN (00:37)
[2025-01-24 06:27] LABS: Hematocrit (blood only) 43.4 % (42.0-52.0); Hemoglobin 14.2 g/dl (14.0-18.0); Mean Corpuscular Hemoglobin 30.2 pg (25.0-34.0); Mean Corpuscular Volume 92.3 fL (80.0-100.0); Platelet Count 193 K/uL (130-400); RDW Standard Deviation 47.1 fL (36.4-46.3); Red Blood Count 4.70 M/uL (4.70-6.10); White Blood Count 6.69 K/ul (4.8-10.8)
[2025-01-24 07:07] LABS: Anion Gap 4.0 (3-11); Blood Urea Nitrogen 16.0 mg/dl (6-23); Calcium 7.9 mg/dl (8.6-10.3); Carbon Dioxide 23.0 mmol/L (21-32); Chloride 114.0 mmol/L (98-107); Creatinine Clr Calc Pharmacy 78.4 ml/min; Glucose 84.0 mg/dl (70-99(Fasting)); Magnesium 1.9 mg/dl (1.7-2.4); Potassium 3.9 mmol/L (3.5-5.1); Sodium 141.0 mmol/L (136-145)
[2025-01-24] MEDS ORDERED: LOPERAMIDE HCL 2 MG CAP PO PRN (09:00)
[2025-01-24] MEDS: MULTIVITAMIN TAB PO SCH (09:01)
[2025-01-24] MEDS: THIAMINE HCL 100 MG TAB PO SCH (09:01)
[2025-01-24] MEDS: FOLIC ACID 1 MG TAB PO SCH (09:01)
[2025-01-24] MEDS: METOPROLOL SUCC 25MG EXT REL TAB PO SCH (09:04)
[2025-01-24] MEDS: MAGNESIUM SULFATE / D5W 1 GM/100 ML BAG IV ONE (10:55)
[2025-01-24] MEDS: POTASSIUM CHLORIDE CRTAB 20 MEQ TABCR PO STA (10:55)
--- NOTE | 2025-01-24 12:48 | Hospitalist Progress Note ---
Date of Service January 24, 2025 Assessment & Plan (1) GI bleed: (2) Community acquired pneumonia: (3) Hypokalemia: (4) Atrial fibrillation: Plan Tulio is a an 80-year-old man with past medical history of A fib on Eliquis, COPD with chronic hypoxemic respiratory failure, alcohol use disorder, frequent falls, history of CVA on aspirin. He presented from [facility] with dark vomiting and diarrhea that began evening prior to admission and worsened on day of admission. Obtained history is very limited secondary to patient's cognitive status. Attempted to call family multiple times without answer. He is being admitted for treatment of his acute GI bleed and community-acquired pneumonia. 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 Had dark emesis around his mouth on arrival. Hemoccult positive on arrival. Hemoglobin stable at 18 and vital signs stable on admission. Has a history of alcohol use - Hold Eliquis - Hemoglobin remaining stable, hgb 14.2 today 01/24 - Continue Protonix 40 mg IV BID - Diet advanced to full liquids. Per speech therapy, recommend soft bite-size diet when diet is further advanced - IV fluids now discontinued - Stool PCR negative. C diff gene positive, toxin negative. Can use Imodium PRN for diarrhea - GI consulted, appreciate recommendations #Community-acquired pneumonia - CXR suspicious for RLL pneumonia and mild leukocytosis of 12.23 on arrival - Continue Levaquin 750 mg daily x 5 day total course - Mucinex 1200 mg BID - DuoNeb PRN wheezing/shortness of breath - Supplemental O2 to maintain O2 sat >90%. Stable on room air today 01/24 #Hypokalemia - Potassium low at 3.2 on 01/23 - repleted with IV and PO supplementation - Potassium improved to 3.9 on 01/24 - repleted with 20 mEq PO x 1 for optimization of electrolytes with A fib - Mag WNL at 1.9 on 01/24 - given m1 bag of IV mag for optimization - Trend with AM labs #A fib | Vtach arrhythmia - Telemetry on 01/23 with multiple short 46 beat runs of V. tach, longest run of V. tach on telemetry was noted to be 31 beats. Telemetry on 01/24 with A fib, rate controlled - Echocardiogram obtained and revealed EF 65-70%, no regional wall motion abnormalities, normal LV systolic function, mild concentric LVH, mildly dilated ascending aorta at 4.1 cm - Increased metoprolol to 75 mg daily - continue - Continue diltiazem, metoprolol, spironolactone - Eliquis on hold with acute GI bleed #H/o CVA - Aspirin on hold with acute GI bleed #COPDcontinue budesonide BID, Breo, albuterol PRN. DuoNebs available PRN as above #Hypothyroidismrecent TSH normal at 1.1. Continue Synthroid #Chronic paincontinue gabapentin, oxycodone PRN #GERDcontinue PPI #Vitamin D deficiency | vitamin B12 deficiencycontinue cholecalciferol, cyanocobalamin # Major depressive disorder | Alcohol use disorder | Suspected vascular dementia - Continue Cymbalta, Remeron - Continue thiamine, folate, multivitamin daily VTE PPx: SCDs. Chemoprophylaxis contraindicated with acute GI bleed Dispo: Continued inpatient stay Ordered Imodium PRN Repleted with IV mag and PO KCl Discontinued IV fluids Advanced diet Admission and Anticipated Discharge Date Admission Date: January 22, 2025 Supervising Physician Co-Signing Physician Notes PA Supervision Note: I did not personally see or examine the patient today, but I verified all ewing points of CHIP Mauricio's assessment and plan with the following exceptions/additions: None Subjective Patient seen and evaluated at bedside with his RN and RN polymerization supervisor present. 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 RN polymerization supervisor addressed the situation with him. He is appreciative of our conversation/addressing his feelings. Otherwise he reports feeling pretty well today. He denies nausea and would like to try advancement to full liquid diet. He denies shortness of breath but does feel a little wheezy. He reports that "my issues are because I ate too many pretzels." We again discussed his reason for admission being GI bleed and pneumonia and the current treatment plan. He verbalized understanding of this after the explanation. No additional complaints or concerns at this time. Telemetry reviewed: A fib with PVCs, rates 70-90s. Physical Exam Physical Exam: General: No acute distress, nondiaphoretic, well-developed, well-nourished. Skin: Warm, dry. No rashes or peripheral edema noted. Cardiac: A fib in 80s without murmurs gallops or rubs. Pulm: Expiratory wheeze noted most prominently in upper lobes. Bases are clear to auscultation bilaterally. No rales or rhonchi. Normal respiratory effort. 93% on room air. Abdominal: Soft, nontender to palpation. Mildly distended, improving. No guarding, rigidity, or rebound tenderness. Neuro: A&Ox3. No focal neurological deficits. Results & Data Results & Data Vital Signs (Past 12 Hours) Vital Signs Temp Pulse Pulse Resp BP Pulse Ox O2 Del Method 01/24/25 09:48 85 16 93 01/24/25 08:34 98.1 F 71 17 138/71 95 Room Air 01/24/25 07:15 68 16 93 Room Air 01/24/25 05:55 63 01/24/25 02:52 98.4 F 71 16 102/66 94 Nasal Cannula Laboratory Results Reviewed CBC Reviewed BMP, mag Reviewed stool studies PG Care Time/CCT Total # of Minutes Spent Total Time Spent with Patient: Total time spent is greater than 50% in coordination of care (as documented) at patient's floor/unit and/or counseling patient: Coding Level of Care Code 25424 SUB INP/OBS CARE 3/50MIN Diagnoses GI bleed K92.2 Community acquired pneumonia J18.9 Hypokalemia E87.6 Atrial fibrillation I48.91
[2025-01-25 08:05] LABS: Hematocrit (blood only) 49.7 % (42.0-52.0); Hemoglobin 16.2 g/dl (14.0-18.0); Mean Corpuscular Hemoglobin 30.1 pg (25.0-34.0); Mean Corpuscular Volume 92.4 fL (80.0-100.0); Platelet Count 208 K/uL (130-400); RDW Standard Deviation 46.9 fL (36.4-46.3); Red Blood Count 5.38 M/uL (4.70-6.10); White Blood Count 7.12 K/ul (4.8-10.8)
[2025-01-25 08:31] LABS: Anion Gap 7.0 (3-11); Blood Urea Nitrogen 13.0 mg/dl (6-23); Calcium 8.6 mg/dl (8.6-10.3); Carbon Dioxide 21.0 mmol/L (21-32); Chloride 114.0 mmol/L (98-107); Creatinine Clr Calc Pharmacy 77.4 ml/min; Glucose 100.0 mg/dl (70-99(Fasting)); Potassium 3.9 mmol/L (3.5-5.1); Sodium 142.0 mmol/L (136-145)
[2025-01-25] MEDS: APIXABAN 5 MG TABLET PO SCH (10:39)
[2025-01-25] MEDS: ASPIRIN 81 MG CHEW PO SCH (10:39)
[2025-01-25] MEDS ORDERED: POLYETHYLENE (MIRALAX) 17 GM PACK PO PRN (12:59)
--- NOTE | 2025-01-25 13:00 | Hospitalist Progress Note ---
"Date of Service January 25, 2025 Assessment & Plan (1) GI bleed: (2) Community acquired pneumonia: (3) Hypokalemia: (4) Atrial fibrillation: Plan Tulio is a an 80-year-old man with past medical history of A fib on Eliquis, COPD with chronic hypoxemic respiratory failure, alcohol use disorder, frequent falls, history of CVA on aspirin. He presented from [facility] with dark vomiting and diarrhea that began evening prior to admission and worsened on day of admission. Obtained history is very limited secondary to patient's cognitive status on admission. Attempted to call family multiple times without answer. He is being admitted for treatment of his acute GI bleed and community-acquired pneumonia. 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 Had dark emesis around his mouth on arrival. Hemoccult positive on arrival. He has since had multiple bowel movements since admission that are brown. Hemoglobin stable at 18 and vital signs stable on admission. Has a history of alcohol use - Hemoglobin improved from yesterday - 16.2 today 01/25 - Resumed Eliquis and aspirin 01/25 - Protonix 40 mg BID switched from IV to PO - continue. Recommend continuing PPI BID x 1-2 months in case of peptic ulcer disease as cause of hematemesis - Diet advanced to heart healthy, soft-bite sized per OUTSIDE CUTTER HAND recommendation - Stool PCR negative. C diff gene positive, toxin negative. Can use Imodium PRN for diarrhea - GI consulted, appreciate recommendations #Community-acquired pneumonia - CXR suspicious for RLL pneumonia and mild leukocytosis of 12.23 on arrival - Continue Levaquin 750 mg daily x 5 day total course - switched from IV to PO - Mucinex 1200 mg BID - DuoNeb PRN wheezing/shortness of breath - Supplemental O2 to maintain O2 sat >90%. Stable on room air since 01/24 - Recommend repeat chest x-ray in 4-6 weeks outpatient to monitor for resolution of pneumonia #Hypokalemia - Potassium low at 3.2 on 01/23 - repleted with IV and PO supplementation - Potassium improved to 3.9 on 01/24 - repleted with 20 mEq PO x 1 for optimization of electrolytes with A fib - Mag WNL at 1.9 on 01/24 - given 1 bag of IV mag for optimization - Trend with AM labs #A fib | Vtach arrhythmia - Telemetry on 01/23 with multiple short 46 beat runs of V. tach, longest run of V. tach on telemetry was noted to be 31 beats. Telemetry on 01/25 with A fib, rate controlled, and 1 episode of 6 beat run of V. tach - Echocardiogram obtained and revealed EF 65-70%, no regional wall motion abnormalities, normal LV systolic function, mild concentric LVH, mildly dilated ascending aorta at 4.1 cm - Increased metoprolol to 75 mg daily - continue - Continue diltiazem, metoprolol, spironolactone - Eliquis now resumed #H/o CVA - Aspirin now resumed #COPDcontinue budesonide BID, Breo, albuterol PRN. DuoNebs available PRN as above #Hypothyroidismrecent TSH normal at 1.1. Continue Synthroid #Chronic paincontinue gabapentin, oxycodone PRN #GERDcontinue PPI #Vitamin D deficiency | vitamin B12 deficiencycontinue cholecalciferol, cyanocobalamin # Major depressive disorder | Alcohol use disorder | Suspected vascular dementia - Continue Cymbalta, Remeron - Continue thiamine, folate, multivitamin daily VTE PPx: SCDs. Eliquis now resumed Dispo: Anticipate discharge back to [facility] tomorrow 01/26 if hemoglobin is stable on morning labs with resumption of Eliquis and aspirin. Resumed aspirin and Eliquis Switched Protonix and Levaquin from IV to p.o. Admission and Anticipated Discharge Date Admission Date: January 22, 2025 Supervising Physician Co-Signing Physician Notes CHIP Supervision Note: I did not personally see or examine the patient today, but I verified all ewing points of CHIP Mauricio's assessment and plan with the following exceptions/additions: None Subjective Patient seen and evaluated in bedside chair. He reports feeling well today. He denies any wheezing, heart palpitations, chest pain, shortness of breath. We discussed that his hemoglobin improved on morning labs today. We discussed resuming his Eliquis and aspirin and monitoring his hemoglobin level tomorrow morning. If his hemoglobin level is stable on morning labs tomorrow, he can return to [facility]. We also discussed that his Levaquin and Protonix have been switched from IV to oral now. He is well tolerating his diet advancement to a heart healthy diet. He denies any acute complaints or concerns at this time. Telemetry reviewed: A-fib 70s80s with a 6 beat run of V. tach at 0930. Physical Exam Physical Exam: General: No acute distress, nondiaphoretic, well-developed, well-nourished. Skin: Warm, dry. No rashes or peripheral edema noted. Cardiac: A fib in 70s without murmurs gallops or rubs. Pulm: Diminished breath sounds at bases but otherwise clear to auscultation bilaterally. Expiratory wheeze no longer present. No rales or rhonchi. Normal respiratory effort. 94% on room air. Abdominal: Soft, nontender to palpation. Mildly distended, improving. No guarding, rigidity, or rebound tenderness. Neuro: A&Ox3. No focal neurological deficits. Results & Data Results & Data Vital Signs (Past 12 Hours) Vital Signs Temp Pulse Pulse Resp BP Pulse Ox O2 Del Method 01/25/25 12:04 97.3 F L 70 18 124/86 94 Room Air 01/25/25 10:07 Room Air 01/25/25 08:10 97.2 F L 73 18 159/98 H 95 Room Air 01/25/25 07:46 80 18 95 Room Air 01/25/25 07:19 97.9 F 82 18 132/78 93 Room Air 01/25/25 05:49 72 01/25/25 03:54 97.9 F 55 L 12 119/71 94 Room Air Laboratory Results Reviewed CBC Reviewed BMP PG Care Time/CCT Total # of Minutes Spent Total Time Spent with Patient: Total time spent is greater than 50% in coordination of care (as documented) at patient's floor/unit and/or counseling patient: Coding Level of Care Code 76037 SUB INP/OBS CARE 3/50MIN Diagnoses GI bleed K92.2 Community acquired pneumonia J18.9 Hypokalemia E87.6 Atrial fibrillation I48.91"
[2025-01-25] MEDS ORDERED: Nursing to Pharmacy Communication SCH (20:30)
[2025-01-26 06:53] LABS: Hematocrit (blood only) 45.6 % (42.0-52.0); Hemoglobin 15.0 g/dl (14.0-18.0); Mean Corpuscular Hemoglobin 30.4 pg (25.0-34.0); Mean Corpuscular Volume 92.3 fL (80.0-100.0); Platelet Count 215 K/uL (130-400); RDW Standard Deviation 46.9 fL (36.4-46.3); Red Blood Count 4.94 M/uL (4.70-6.10); White Blood Count 5.71 K/ul (4.8-10.8)
[2025-01-26 07:13] LABS: Anion Gap 7.0 (3-11); Blood Urea Nitrogen 15.0 mg/dl (6-23); Calcium 8.5 mg/dl (8.6-10.3); Carbon Dioxide 21.0 mmol/L (21-32); Chloride 114.0 mmol/L (98-107); Creatinine Clr Calc Pharmacy 69.9 ml/min; Glucose 98.0 mg/dl (70-99(Fasting)); Magnesium 2.2 mg/dl (1.7-2.4); Potassium 4.0 mmol/L (3.5-5.1); Sodium 142.0 mmol/L (136-145)
[2025-01-26 07:33] VITALS: RESP 16
--- NOTE | 2025-01-26 09:32 | Discharge Summary ---
"Discharge Summary Date of Service January 26, 2025 Principal Dx & Hospital Course #1 = Principal Diagnosis (1) GI bleed: (2) Community acquired pneumonia: (3) Hypokalemia: (4) Atrial fibrillation: Plan Tulio is a an 80-year-old man with past medical history of A fib on Eliquis, COPD with chronic hypoxemic respiratory failure, alcohol use disorder, frequent falls, history of CVA on aspirin. He presented from [facility] with dark vomiting and diarrhea that began evening prior to admission and worsened on day of admission. #Acute GI bleed with dark stools and dark emesis x 1 day DAIRY HAND. Hemoccult positive on arrival. He has since had multiple bowel movements since admission that are brown. Hgb stable at 15.0. Eliquis & ASA resumed on 01/25 PPI BID on dc --> rec follow up w/ GI GI consulted --> deferred scope secondary to findings of pneumonia + stable hgb. [employer] WORK[employer] --> soft bite sized diet Stool PCR negative. C diff gene positive, toxin negative. Can use Imodium PRN for diarrhea #Community-acquired pneumonia CXR suspicious for RLL pneumonia and mild leukocytosis of 12.23 on arrival now resolved Continue Levaquin for additional 4 days on dc. Stable on room air since 01/24. Recommend repeat chest x-ray in 4-6 weeks outpatient to monitor for resolution of pneumonia #Hypokalemia - resolved Potassium low at 3.2 on 01/23 - repleted with IV and PO supplementation Now stable at 4.0 #A fib | Vtach arrhythmia Telemetry on 01/23 with multiple short 46 beat runs of V. tach, longest run of V. tach on telemetry was noted to be 31 beats. Telemetry on 01/25 with A fib, rate controlled, and 1 episode of 6 beat run of V. tach Echocardiogram obtained and revealed EF 65-70%, no regional wall motion abnormalities, normal LV systolic function, mild concentric LVH, mildly dilated ascending aorta at 4.1 cm Increased metoprolol to 75 mg daily - continue on dc Continue diltiazem, metoprolol, spironolactone Eliquis now resumed #H/o CVA - Aspirin now resumed #COPDcontinue budesonide BID, Breo, albuterol PRN. DuoNebs available PRN as above #Hypothyroidismrecent TSH normal at 1.1. Continue Synthroid #Chronic paincontinue gabapentin, oxycodone PRN #GERDcontinue PPI #Vitamin D deficiency | vitamin B12 deficiencycontinue cholecalciferol, cyanocobalamin # Major depressive disorder | Alcohol use disorder | Suspected vascular dementia Continue Cymbalta, Remeron Continue thiamine, folate, multivitamin daily PT/OT eval patient prior to dc --> okay to return home to [facility] w/ home health for PT/OT Discharged back to [facility] 01/26. Discussed w/ CM Admission HPI Per Admitting Provider Tulio is a an 80-year-old man with past medical history of sinus tachycardia, COPD with chronic hypoxemic respiratory failure, alcohol use disorder, frequent falls, history of CVA on Eliquis. He presented from [facility] with dark vomiting and diarrhea. At the time of my exam, the patient was lying in bed in no acute distress. HPI and ROS unable to be obtained due to patient's cognitive status. Attempted to call patient's son x 3 and his significant other x 2 without success. Sign out from ED is that Dov was sent in for dark emesis and stool that began yesterday evening and worsened this morning. [facility] cannot provide further details on the appearance of his emesis or stool. Patient denied chest pain, shortness of breath, abdominal pain illness, recent travel to ED provider. Per todd's documentation, patient took all of his regular morning medications today, including his Eliquis and baby aspirin. Vitals on admission are stable. BP 149/80. 92% on 2 L NC (baseline). Labs on admission are significant for mild leukocytosis with WBC 12.23, Hgb 18.2, elevated glucose at 272. Coagulation studies WNL. Electrolytes WNL. Renal function WNL. Liver enzymes WNL. Troponin negative at 8.8. UA with trace protein, trace ketones, 1+ bilirubin, trace leukocyte esterase, 35 hyaline casts, no WBC, no bacteria, no nitrates, no blood. CXR on admission reveals atelectasis versus early pneumonia of the right lung base. CT A/P with findings consistent with enteritis without bowel obstruction and distal abdominal aortic aneurysm measuring 3.[address] with no acute findings. Documentation from [facility] notes that patient's code status is DNR/DNI. Discharge Exam General: NAD, VS: BP 141/90; P85; R16; T36.7C Resp: normal respiratory effort, lungs diminished at bases but clear to auscultation CV: irregularly irregular. no murmur Extremities: Moves all extremities, no edema Neuro: A&O x3 Skin: intact, no lesions noted Discharge Plan Discharge Items Patient Disposition[facility] Reason For Visit: GI BLEED, PNEUMONIA Discharge Diagnosis: Pneumonia, GI Bleed Condition on Discharge: Good Activity: Resume your previous activity Non-emergency contact: Primary Care Provider and State Trooper Call non-emergency contact if: you have any medication questions and your symptoms worsen Follow-up/Referrals: Magaly Nicole [Primary Care Provider] - Amaury Contreras MD [Physician] - Diet: Heart Healthy Diet Texture: Dental soft (bite-sized) Addtl Attending Provider Instructions: Mr. Mcbride, You were recently admitted to the hospital for dark stools and vomiting. You were found to have pneumonia. Fortunately your hemoglobin stayed stable and you did not require any procedures by our track dresser. Medications: Your medication list has been reviewed and reconciled upon discharge to ensure accuracy and continuity of care. An updated list of all your medications is included with your hospital discharge paperwork. Please review this list closely, and make note of any changes. Levofloxacin was sent in to your pharmacy to treat your pneumonia. Please take this once daily for the next 4 days. Your first dose will be this evening, 01/26. You may take with food to avoid GI upset. Pantoprazole was sent in to your pharmacy to treat your GI bleeding. Please take this twice daily until seen by either your PCP or a track dresser. Your first dose will be this evening. Your Metoprolol dose has been increased to 75mg once daily. An updated script has been sent to your pharmacy. Take your medications as instructed; do not skip a dose of your medicines. Make sure all of your doctors know every medicine you are taking (including ngwx-xpi-vgcgwus medicines, vitamins, and supplements). Call your primary care provider before taking any new medicines (including over- the-counter medicines, vitamins, and supplements), because some of these may interact with your current medications, or may make your symptoms worse. Tell your primary care provider if you cannot afford your medications. Activity: You can do normal everyday activities as your body allows. Take rest breaks if you feel tired. Do not overexert. Stop activity if you have pain, shortness of breath or feel dizzy. Follow-up appointments: Make an appointment with your primary care physician within one week of discharge. A copy of this summary will be sent to them. Every time you see your primary care physician, or any other doctor, bring your medication list, and a list of questions. Please follow up with gastroenterology on an outpatient basis. Their office phone number is above if you should have questions or concerns. CONTACT YOUR PRIMARY CARE PROVIDER if you experience any of the following: Shortness of breath or difficulty breathing Fevers or chills Feeling tired with normal activity or experiencing dizziness or fainting Difficulty following your treatment plan, or difficulty taking medications CALL 911 OR GO TO THE EMERGENCY DEPARTMENT if you experience any of the following: Severe abdominal pain or nausea/vomiting Severe chest pain, or chest pain that radiates (moves) to your jaw or arm Sudden, severe shortness of breath or difficulty breathing Thank you for allowing us to participate in your care. Pending Studies at Discharge: No Stand-Alone Forms: My [facility] Skilled Items Patient informed of condition?: Yes DNR: Yes Discharge Level of Care: Skilled Communicable Disease: No Discharge Prognosis: Stable Lines: None Urinary Catheter: No Medications and DC Order Prescriptions: New pantoprazole 40 mg Tablet,Delayed Release (Dr/Ec) 40 mg PO BID Qty: 60 0RF metoprolol succinate 25 mg Tablet Extended Release 24 Hr 75 mg PO QAM Qty: 90 0RF levofloxacin 750 mg Tablet 750 mg PO HS Qty: 4 0RF Continued Eliquis 5 mg tablet 5 mg PO BID gabapentin 100 mg capsule 100 mg PO BID levothyroxine 175 mcg tablet 175 mcg PO QAM mirtazapine 30 mg tablet 30 mg PO HS triamcinolone acetonide 0.1 % Cream 1 applic TOPICAL DAILY PRN (Reason: affected areas) cholecalciferol (vitamin D3) [Vitamin D3] 2,000 unit Tablet 2,000 unit PO QAM gabapentin 600 mg tablet 600 mg PO HS clobetasol 0.05 % Cream 1 applic TOPICAL BID PRN (Reason: ITCHINESS) cyanocobalamin (vitamin B-12) [Vitamin B-12] 1,000 mcg Tablet 1,000 mcg PO QAM albuterol sulfate 2.5 mg /3 mL (0.083 %) Solution For Nebulization 2.5 mg INHALATION BID PRN (Reason: Shortness Of Breath Or Wheezing) budesonide [Pulmicort] 0.5 mg/2 mL Suspension For Nebulization 0.5 mg INHALATION BID aspirin 81 mg Tablet,Chewable 81 mg PO DAILY vitamin B complex Tablet 1 tab PO QAM topiramate 50 mg tablet 50 mg PO BID duloxetine 30 mg capsule,delayed release(DR/EC) 30 mg PO .AFTERNOON Rx Instructions: AFTERNOON albuterol sulfate 2.5 mg /3 mL (0.083 %) Solution For Nebulization 2.5 mg inhalation Q4H PRN (Reason: Shortness Of Breath Or Wheezing) diltiazem HCl 180 mg Capsule,Extended Release 24hr 180 mg PO QAM Qty: 30 0RF spironolactone 50 mg Tablet 50 mg PO QAM duloxetine [Cymbalta] 60 mg Capsule,Delayed Release(Dr/Ec) 60 mg PO QAM acetaminophen [Tylenol] 325 mg Tablet 650 mg PO Q6H MDD 3 GRAMS APAP/24 HOURS PRN (Reason: PAIN/FEVER) oxycodone 5 mg Tablet 5 mg PO Q4H PRN (Reason: Pain (Scale Score 7-10)) oxymetazoline [Afrin (oxymetazoline)] 0.05 % [place],Non-Aerosol 3 spray INTRANASAL Q12H PRN (Reason: NOSE BLEEDS) Rx Instructions: IF BLEEDING NOT STOPPED IN 20-30 MINUTES, GO TO ER. fluticasone furoate-vilanterol [Breo Ellipta] 100-25 mcg/dose blister with device 1 inh inhalation QAM Discontinued esomeprazole magnesium [Nexium] 40 mg Capsule,Delayed Release(Dr/Ec) 40 mg PO Q2D metoprolol succinate 50 mg Tablet Extended Release 24 Hr 50 mg PO QAM Qty: 30 0RF Rx Instructions: HOLD FOR SBP <90 OR HR <55 Discharge Orders: Discharge Order (Routine); Ordered 01/26/25 Ordered By: Tonya Guevara Admission Data Admit Date/Time: 01/22/25 15:43 Attending Provider: Seymour Sorensen Admit Provider: Nyasia Randhawa Primary Care Provider: Magaly Nicole Other Providers: Nyasia Randhawa; Amaury Contreras Hospital Stay Data Consultations 01/22/25 20:11 ED Decision to Admit Stat 01/22/25 20:41 Consult Gastroenterology Routine Diagnostic Imagining Performed 01/22/25 12:02 CT abd pelvis IV con only Stat 01/22/25 14:40 CT head/brain wo con Stat Pending Results Patient Have Any Pending Studies at Discharge: No Discharge Instructions Given to Patient (Per Discharging Provider) Mr. Mcbride, Primo were recently admitted to the hospital for dark stools and vomiting. You were found to have pneumonia. Fortunately your hemoglobin stayed stable and you did not require any procedures by our track dresser. Medications: Your medication list has been reviewed and reconciled upon discharge to ensure accuracy and continuity of care. An updated list of all your medications is included with your hospital discharge paperwork. Please review this list closely, and make note of any changes. Levofloxacin was sent in to your pharmacy to treat your pneumonia. Please take this once daily for the next 4 days. Your first dose will be this evening, 01/26. You may take with food to avoid GI upset. Pantoprazole was sent in to your pharmacy to treat your GI bleeding. Please take this twice daily until seen by either your PCP or a track dresser. Your first dose will be this evening. Your Metoprolol dose has been increased to 75mg once daily. An updated script has been sent to your pharmacy. Take your medications as instructed; do not skip a dose of your medicines. Make sure all of your doctors know every medicine you are taking (including wilk-cml-jzigccm medicines, vitamins, and supplements). Call your primary care provider before taking any new medicines (including over- the-counter medicines, vitamins, and supplements), because some of these may interact with your current medications, or may make your symptoms worse. Tell your primary care provider if you cannot afford your medications. Activity: You can do normal everyday activities as your body allows. Take rest breaks if you feel tired. Do not overexert. Stop activity if you have pain, shortness of breath or feel dizzy. Follow-up appointments: Make an appointment with your primary care physician within one week of discharge. A copy of this summary will be sent to them. Every time you see your primary care physician, or any other doctor, bring your medication list, and a list of questions. Please follow up with gastroenterology on an outpatient basis. Their office phone number is above if you should have questions or concerns. CONTACT YOUR PRIMARY CARE PROVIDER if you experience any of the following: Shortness of breath or difficulty breathing Fevers or chills Feeling tired with normal activity or experiencing dizziness or fainting Difficulty following your treatment plan, or difficulty taking medications CALL 911 OR GO TO THE EMERGENCY DEPARTMENT if you experience any of the following: Severe abdominal pain or nausea/vomiting Severe chest pain, or chest pain that radiates (moves) to your jaw or arm Sudden, severe shortness of breath or difficulty breathing Thank you for allowing us to participate in your care. Supervising Physician Co-Signing Physician Notes The patient was not seen by me. The chart was reviewed. Case discussed with CHIP Batista. Agree with assessment and plan Total Time Total Time Spent Total Time Spent (In Minutes): 60 Total Time Includes: Examination of the Patient, Discharge Planning, Medication Reconciliation and Communication With Other Providers Coding Level of Care Code 93531 INP/OBS DISCH >30 MIN Diagnoses GI bleed K92.2 Community acquired pneumonia J18.9 Hypokalemia E87.6 Atrial fibrillation I48.91"
[2025-01-26 11:29] VITALS: TEMP 98.1
[2025-01-26 14:55] VITALS: BP 129/73; PULSE 68
[2025-01-26 15:12] VITALS: O2SAT 96
== END 2025-01-26 15:43 | disposition home or self-care (01) | DRG 377 ==
LOC: ED 11:13 → SUATTDRO 15:43 → 2N 15:43